=== PATIENT | female | born 1960 | race Caucasian/White ===

== ENCOUNTER 2016-10-23 15:27 | Inpatient (IN) | payer MEDICAID ==
[~2016-10-23] VITALS: Ht 162.6 cm; Wt 83.0 kg
[~2016-10-23 15:27] MED LIST: CHOL20009 PO; CITA10TA70 PO; FOLI1TAB6 PO; FURO40TA PO; LACT10SO PO; METH-562 PO; METO10TA3 PO; NOR10T PO; OMEP20CA5 OR; ONDA4TAB8 PO; RIFA550T PO; SPIR25TA89 PO; THIA100T43 PO; TRAZ50TA2 PO
[2016-10-23 20:52] LABS: Basophils # (auto) 0 uL; Basophils % (auto) 0.2 % (0.0-2.0); Eosinophils # (auto) 0.1 uL; Eosinophils % (auto) 1.8 % (0.0-7.0); Hematocrit 39.3 % (36.0-46.0); Hemoglobin 12.8 g/dL (12.2-16.2); Lymphocytes # (auto) 1.2 uL; Lymphocytes % (auto) 38.9 % (10.0-50.0); Mean Corpuscular Hemoglobin 32.3 pg (28.0-32.0); Mean Corpuscular Hgb Conc. 32.6 g/dL (32.0-36.0); Mean Corpuscular Volume 99.1 fL (80.0-100.0); Mean Platelet Volume 8.9 fL (7.4-10.4); Monocytes # (auto) 0.4 uL; Neutrophils # (auto) 1.4 uL; Neutrophils % (auto) 47.1 % (37.0-80.0); Platelet Count (auto) 66 10^3/uL (140-450)
[2016-10-23] MEDS ORDERED: ONDANSETRON HCL 4 MG/2 ML VIAL IV ONE (21:15)
[2016-10-23] MEDS ORDERED: HYDROmorphone HCL 2 MG/ML VL IV ONE (21:15)
[2016-10-23 21:26] LABS: Albumin 3.2 g/dL (3.4-5.0); BUN/Creatinine Ratio 15.6; Bilirubin, Total 1.2 mg/dL (0.2-1.0); Calcium 8.7 mg/dL (8.5-10.1); Potassium 3.6 mmol/L (3.5-5.1); Total Protein 6.1 g/dL (6.4-8.2)
[2016-10-23 21:27] LABS: Urine Color Yellow (Yellow); Urine Glucose Normal (Normal)
[2016-10-23 21:28] LABS: Urine Bilirubin Negative (Negative); Urine Blood Negative /uL (Negative); Urine Ketone Negative (Negative); Urine Nitrite Negative (Negative); Urine RBC 1 /hpf (0 - 4); Urine Squamous Epithelial Cell FEW /hpf (<5); Urine Urobilinogen >12 mg/dL (Negative); Urine pH 6.5 (5.0-8.0)
[2016-10-23] MEDS ORDERED: LACTULOSE 20Gm/30ML SOLN PO ONE (23:00)
[2016-10-24] VITALS (8 sets, daily range): BP systolic 112–130; BP diastolic 56–65
[2016-10-24] MEDS ORDERED: DEXTROSE (50%) 50ML SYRG IV PRN (00:45)
[2016-10-24] MEDS ORDERED: ACETAMINOPHEN 325 MG TAB PO PRN (00:45)
[2016-10-24] MEDS ORDERED: traZODone HCL 50 MG TAB PO ONE (00:45)
[2016-10-24] MEDS: HYDROcodone-ACET 5/325MG TAB PO PRN (02:32)
[2016-10-24] MEDS ORDERED: CHOL100079 OR (03:01)
[2016-10-24] MEDS ORDERED: RIFA550T PO (03:01)
[2016-10-24] MEDS ORDERED: OXYC-589 PO (03:01)
[2016-10-24] MEDS ORDERED: TRAZ100T2 PO (03:01)
[2016-10-24] MEDS ORDERED: VENL100T PO (03:01)
[2016-10-24] MEDS ORDERED: LAMO100T44 PO (03:01)
[2016-10-24] MEDS ORDERED: TOPI100T68 PO (03:01)
[2016-10-24] MEDS ORDERED: OXY5T GT (03:01)
[2016-10-24] MEDS ORDERED: DOCU1CAP24 PO (03:01)
[2016-10-24] MEDS ORDERED: ZINC50TA4 PO (03:01)
[2016-10-24] MEDS: LACTULOSE 20Gm/30ML SOLN PO SCH ×3 (05:22→22:14)
[2016-10-24] MEDS: InsuLIN REG 1unit/0.01ml Soln (100units/ml) SC SCH ×2 (05:32→12:00)
[2016-10-24] MEDS: ACCU-CHEK COMFORT CURVE STRIP VI SCH ×2 (05:32→12:24)
[2016-10-24] MEDS ORDERED: INFLUENZA QUAD 2016-2017 0.5 ML SYRG IM ONE (06:00)
[2016-10-24] MEDS: CITALOPRAM HYDROBR 20 MG TAB PO SCH (10:00)
[2016-10-24] MEDS ORDERED: ENOXAPARIN SOD 30 MG/0.3 ML SYRINGE SC SCH (10:00)
[2016-10-24] MEDS: SPIRONOLACTONE 25 MG TAB PO SCH (10:21)
[2016-10-24] MEDS: FUROSEMIDE 40 MG TAB PO SCH (10:22)
[2016-10-24] MEDS: FOLIC ACID 1 MG TAB PO SCH (10:22)
[2016-10-24] MEDS: FAMOTIDINE 20 MG TAB PO SCH ×2 (10:23→22:14)
[2016-10-24] MEDS: RIFAXIMIN 550 MG TAB PO SCH ×2 (10:23→22:14)
[2016-10-24] MEDS: THIAMINE HCL 100 MG TAB PO SCH (10:23)
[2016-10-24] MEDS: ENOXAPARIN SOD 40 MG/0.4 ML SYRINGE SC SCH (10:24)
[2016-10-24] MEDS: OXYCODONE W/ ACETAMINOPHEN 5/325MG TABLET PO PRN ×2 (16:03→22:15)
[2016-10-24] MEDS: traZODone HCL 50 MG TAB PO SCH (22:14)
[2016-10-25 05:23] VITALS: BP 123/68
[2016-10-25] MEDS: LACTULOSE 20Gm/30ML SOLN PO SCH ×3 (05:57→21:15)
[2016-10-25] MEDS: OXYCODONE W/ ACETAMINOPHEN 5/325MG TABLET PO PRN ×3 (06:00→18:28)
[2016-10-25 07:17] LABS: Basophils # (auto) 0 uL; Basophils % (auto) 0.5 % (0.0-2.0); DEFINITIVE VIEW TRANSMISSION; Eosinophils # (auto) 0 uL; Eosinophils % (auto) 2.3 % (0.0-7.0); Hematocrit 41.6 % (36.0-46.0); Hemoglobin 14.3 g/dL (12.2-16.2); Lymphocytes # (auto) 0.5 uL; Lymphocytes % (auto) 24.7 % (10.0-50.0); Mean Corpuscular Hgb Conc. 34.4 g/dL (32.0-36.0); Mean Corpuscular Volume 95.9 fL (80.0-100.0); Monocytes # (auto) 0.3 uL; Neutrophils # (auto) 1.1 uL; Neutrophils % (auto) 57.5 % (37.0-80.0); Platelet Count (auto) 49 10^3/uL (140-450); Red Cell Distribution Width 13.7 % (11.6-16.0)
[2016-10-25 07:21] LABS: Albumin 3.2 g/dL (3.4-5.0); BUN/Creatinine Ratio 13.1; Magnesium 1.9 mg/dL (1.6-2.6); Potassium 3.1 mmol/L (3.5-5.1)
[2016-10-25 07:24] LABS: Bilirubin, Total 1.8 mg/dL (0.2-1.0); Total Protein 6.3 g/dL (6.4-8.2)
[2016-10-25 07:25] LABS: White Blood Cell 1.9 10^3/uL (4.4-10.8)
[2016-10-25 08:43] VITALS: BP 111/71
[2016-10-25] MEDS: ONDANSETRON HCL 4 MG/2 ML VIAL IV PRN ×3 (09:04→18:32)
[2016-10-25] MEDS: HYDROcodone-ACET 5/325MG TAB PO PRN (09:05)
[2016-10-25] MEDS ORDERED: MAGNESIUM OXIDE 400 MG TAB PO ONE (09:15)
[2016-10-25] MEDS ORDERED: POTASSIUM CHL 20 Meq TABLET PO ONE (09:15)
[2016-10-25] MEDS: CITALOPRAM HYDROBR 20 MG TAB PO SCH (09:23)
[2016-10-25] MEDS: FUROSEMIDE 40 MG TAB PO SCH (09:24)
[2016-10-25] MEDS: SPIRONOLACTONE 25 MG TAB PO SCH (09:24)
[2016-10-25] MEDS: FOLIC ACID 1 MG TAB PO SCH (09:25)
[2016-10-25] MEDS: THIAMINE HCL 100 MG TAB PO SCH (09:25)
[2016-10-25] MEDS: FAMOTIDINE 20 MG TAB PO SCH ×2 (09:25→21:16)
[2016-10-25] MEDS: ENOXAPARIN SOD 40 MG/0.4 ML SYRINGE SC SCH (09:25)
[2016-10-25] MEDS: RIFAXIMIN 550 MG TAB PO SCH ×2 (10:24→21:27)
[2016-10-25 11:51] LABS: Basophils # (auto) 0 uL; Basophils % (auto) 0.3 % (0.0-2.0); DEFINITIVE VIEW TRANSMISSION; Eosinophils # (auto) 0 uL; Eosinophils % (auto) 1.2 % (0.0-7.0); Hematocrit 43.3 % (36.0-46.0); Hemoglobin 14.4 g/dL (12.2-16.2); Lymphocytes # (auto) 0.7 uL; Lymphocytes % (auto) 26.9 % (10.0-50.0); Mean Corpuscular Hemoglobin 32.2 pg (28.0-32.0); Mean Corpuscular Hgb Conc. 33.1 g/dL (32.0-36.0); Mean Corpuscular Volume 97.2 fL (80.0-100.0); Mean Platelet Volume 8.6 fL (7.4-10.4); Monocytes # (auto) 0.4 uL; Monocytes % (auto) 13.9 % (0.0-12.0); Neutrophils # (auto) 1.5 uL; Neutrophils % (auto) 57.7 % (37.0-80.0); Platelet Count (auto) 62 10^3/uL (140-450); Red Cell Distribution Width 13.7 % (11.6-16.0); White Blood Cell 2.6 10^3/uL (4.4-10.8)
[2016-10-25 13:19] VITALS: BP 99/46
[2016-10-25 16:25] VITALS: BP 104/49
[2016-10-25 20:00] VITALS: BP 104/49
[2016-10-25] MEDS: traZODone HCL 50 MG TAB PO SCH (21:27)
[2016-10-25 21:30] VITALS: BP 101/62
[2016-10-26 05:00] VITALS: BP 125/74
[2016-10-26] MEDS: LACTULOSE 20Gm/30ML SOLN PO SCH ×2 (05:16→14:00)
[2016-10-26 07:47] LABS: Basophils # (auto) 0 uL; Basophils % (auto) 0.4 % (0.0-2.0); Eosinophils # (auto) 0.1 uL; Eosinophils % (auto) 3.2 % (0.0-7.0); Hematocrit 45.7 % (36.0-46.0); Hemoglobin 14.9 g/dL (12.2-16.2); Lymphocytes # (auto) 1.1 uL; Mean Corpuscular Hemoglobin 31.8 pg (28.0-32.0); Mean Corpuscular Hgb Conc. 32.5 g/dL (32.0-36.0); Mean Corpuscular Volume 97.9 fL (80.0-100.0); Mean Platelet Volume 9.3 fL (7.4-10.4); Monocytes # (auto) 0.4 uL; Monocytes % (auto) 13.1 % (0.0-12.0); Neutrophils # (auto) 1.4 uL; Neutrophils % (auto) 46.3 % (37.0-80.0); Platelet Count (auto) 79 10^3/uL (140-450); Red Cell Distribution Width 13.6 % (11.6-16.0); White Blood Cell 3.1 10^3/uL (4.4-10.8)
[2016-10-26 08:00] VITALS: BP 130/69
[2016-10-26 08:51] VITALS: BP 130/69
[2016-10-26] MEDS ORDERED: POTASSIUM CHL 20 Meq TABLET PO ONE (09:15)
[2016-10-26] MEDS: ENOXAPARIN SOD 40 MG/0.4 ML SYRINGE SC SCH (09:56)
[2016-10-26] MEDS: ONDANSETRON HCL 4 MG/2 ML VIAL IV PRN ×2 (09:56→13:43)
[2016-10-26] MEDS: OXYCODONE W/ ACETAMINOPHEN 5/325MG TABLET PO PRN ×2 (09:57→13:42)
[2016-10-26] MEDS: SPIRONOLACTONE 25 MG TAB PO SCH (09:57)
[2016-10-26] MEDS: FOLIC ACID 1 MG TAB PO SCH (09:58)
[2016-10-26] MEDS: THIAMINE HCL 100 MG TAB PO SCH (09:58)
[2016-10-26] MEDS: FAMOTIDINE 20 MG TAB PO SCH (09:58)
[2016-10-26] MEDS: CITALOPRAM HYDROBR 20 MG TAB PO SCH (09:58)
[2016-10-26] MEDS: FUROSEMIDE 40 MG TAB PO SCH (09:59)
[2016-10-26 13:07] VITALS: BP 107/75
[2016-10-26] MEDS: RIFAXIMIN 550 MG TAB PO SCH (13:42)
[2016-10-26 13:50] VITALS: BP 130/69
== END 2016-10-26 14:45 | disposition home or self-care (01) ==
LOC: ER 15:30 → OVERFLOW 15:31 → EAST 10-24 01:35
PROVIDERS: ADMIT Nurse Practitioner; ATTEND Internal Medicine
DX: K74.60 Unspecified cirrhosis of liver (principal); D69.59 Other secondary thrombocytopenia; K76.6 Portal hypertension; K72.90 Hepatic failure, unspecified without coma; E44.1 Mild protein-calorie malnutrition; J44.9 Chronic obstructive pulmonary disease, unspecified; B19.20 Unspecified viral hepatitis C without hepatic coma; K29.50 Unspecified chronic gastritis without bleeding; D72.819 Decreased white blood cell count, unspecified; E11.9 Type 2 diabetes mellitus without complications; E87.6 Hypokalemia; K21.9 Gastro-esophageal reflux disease without esophagitis; F32.9 Major depressive disorder, single episode, unspecified; M19.90 Unspecified osteoarthritis, unspecified site; G89.29 Other chronic pain; F41.9 Anxiety disorder, unspecified; Z88.6 Allergy status to analgesic agent; Z88.5 Allergy status to narcotic agent; Z88.8 Allergy status to other drugs, medicaments and biological substances; Z82.49 Family history of ischemic heart disease and other diseases of the circulatory system; Z83.3 Family history of diabetes mellitus; Z80.9 Family history of malignant neoplasm, unspecified; Z91.09 Other allergy status, other than to drugs and biological substances; Z68.31 Body mass index [BMI] 31.0-31.9, adult; Z90.49 Acquired absence of other specified parts of digestive tract; Z82.61 Family history of arthritis
CPT/HCPCS: 36415; 74176; 80053; 81001; 82140; 82962; 83735; 84132; 85025; 93970; 96374; 96375; 97001; J2405

== ENCOUNTER 2016-12-31 15:27 | Emergency (ER) | payer MEDICAID ==
[~2016-12-31] VITALS: Ht 162.6 cm; Wt 78.0 kg
[~2016-12-31 15:27] MED LIST changes: +CHOL100079 OR; -CHOL20009 PO; -CITA10TA70 PO; +DOCU1CAP24 PO; -FOLI1TAB6 PO; -FURO40TA PO; +LAMO100T44 PO; -METH-562 PO; -NOR10T PO; -OMEP20CA5 OR; +OXY5T GT; +OXYC-589 PO; -THIA100T43 PO; +TOPI100T68 PO; +TRAZ100T2 PO; -TRAZ50TA2 PO; +VENL100T PO; +ZINC50TA4 PO
[2016-12-31 16:43] LABS: Albumin 3.3 g/dL (3.4-5.0); Alkaline Phosphatase 104 U/L (45-117); Anion Gap 10 (5-15); Aspartate Aminotransferase 43 U/L (15-37); BUN/Creatinine Ratio 10.7; Bilirubin, Total 1.3 mg/dL (0.2-1.0); Blood Urea Nitrogen 8 mg/dL (7-18); Calcium 9.3 mg/dL (8.5-10.1); Carbon Dioxide 24 mmol/L (21-32); Chloride 109 mmol/L (98-107); GFR African American 104 mL/min; GFR Non-African American 86 mL/min; Glucose 96 mg/dL (74-106); Magnesium 2.2 mg/dL (1.6-2.6); Potassium 3.5 mmol/L (3.5-5.1); Sodium 143 mmol/L (136-145); Total Protein 6.7 g/dL (6.4-8.2)
[2016-12-31 18:40] LABS: Basophils # (auto) 0 uL; Basophils % (auto) 0.3 % (0.0-2.0); Eosinophils # (auto) 0.1 uL; Eosinophils % (auto) 3.7 % (0.0-7.0); Hematocrit 41.3 % (36.0-46.0); Hemoglobin 13.8 g/dL (12.2-16.2); Lymphocytes % (auto) 32.6 % (10.0-50.0); Mean Corpuscular Hemoglobin 32.8 pg (28.0-32.0); Mean Corpuscular Hgb Conc. 33.5 g/dL (32.0-36.0); Mean Corpuscular Volume 97.8 fL (80.0-100.0); Mean Platelet Volume 8.8 fL (7.4-10.4); Monocytes # (auto) 0.3 uL; Monocytes % (auto) 10.8 % (0.0-12.0); Neutrophils # (auto) 1.6 uL; Neutrophils % (auto) 52.6 % (37.0-80.0); Red Cell Distribution Width 14.1 % (11.6-16.0)
[2016-12-31 19:02] LABS: Platelet Count (auto) 66 10^3/uL (140-450)
[2016-12-31 20:13] VITALS: BP 132/56
== END 2016-12-31 21:06 | disposition left against medical advice (07) ==
LOC: ER 15:29
DX: R79.9 Abnormal finding of blood chemistry, unspecified (principal); Z53.21 Procedure and treatment not carried out due to patient leaving prior to being seen by health care provider
CPT/HCPCS: 36415; 80053; 82140; 83735; 84484; 85025; 93005

== ENCOUNTER 2017-01-01 17:24 | Emergency (ER) | payer MEDICAID ==
[~2017-01-01] VITALS: Ht 162.6 cm; Wt 78.9 kg
[2017-01-02 02:41] VITALS: BP 113/61
== END 2017-01-02 02:51 | disposition home or self-care (01) ==
LOC: ER 17:27
DX: J02.9 Acute pharyngitis, unspecified (principal); H92.03 Otalgia, bilateral; K52.9 Noninfective gastroenteritis and colitis, unspecified; J44.9 Chronic obstructive pulmonary disease, unspecified; M19.90 Unspecified osteoarthritis, unspecified site; E11.9 Type 2 diabetes mellitus without complications; K21.9 Gastro-esophageal reflux disease without esophagitis; Z90.49 Acquired absence of other specified parts of digestive tract; Z90.89 Acquired absence of other organs; Z88.6 Allergy status to analgesic agent; Z88.8 Allergy status to other drugs, medicaments and biological substances
CPT/HCPCS: 82140

== ENCOUNTER 2017-04-06 08:01 | Emergency (ER) | payer MEDICAID ==
[~2017-04-06] VITALS: Ht 162.6 cm; Wt 82.6 kg
[~2017-04-06 08:01] MED LIST changes: -LACT10SO PO; +LACT10SO3 PO
[2017-04-06 08:07] VITALS: BP 152/69
[2017-04-06] MEDS ORDERED: KETOROLAC TROMETH 60MG/2ML VIAL IM ONE (09:15)
== END 2017-04-06 09:26 | disposition home or self-care (01) ==
LOC: ER 08:02
DX: G43.909 Migraine, unspecified, not intractable, without status migrainosus (principal); J44.9 Chronic obstructive pulmonary disease, unspecified; M19.90 Unspecified osteoarthritis, unspecified site; E11.9 Type 2 diabetes mellitus without complications; K21.9 Gastro-esophageal reflux disease without esophagitis; Z90.49 Acquired absence of other specified parts of digestive tract
CPT/HCPCS: 70450; 96372; 99284; J1885

== ENCOUNTER 2017-04-12 19:47 | Observation (INO) | payer MEDICAID ==
[~2017-04-12] VITALS: Ht 162.6 cm; Wt 77.6 kg
[2017-04-12 20:59] LABS: Urine RBC None Seen /hpf (0 - 4)
[2017-04-12 21:04] LABS: Basophils # (auto) 0 uL; Basophils % (auto) 0.3 % (0.0-2.0); CONDITION Y; Eosinophils # (auto) 0.1 uL; Eosinophils % (auto) 2.3 % (0.0-7.0); Hematocrit 38.5 % (36.0-46.0); Hemoglobin 13.2 g/dL (12.2-16.2); Lymphocytes # (auto) 0.8 uL; Lymphocytes % (auto) 18.9 % (10.0-50.0); Mean Corpuscular Hemoglobin 34.3 pg (28.0-32.0); Mean Corpuscular Hgb Conc. 34.3 g/dL (32.0-36.0); Monocytes # (auto) 0.5 uL; Monocytes % (auto) 11.1 % (0.0-12.0); Neutrophils # (auto) 2.8 uL; Neutrophils % (auto) 67.4 % (37.0-80.0); Platelet Count (auto) 93 10^3/uL (140-450); Red Cell Distribution Width 15.2 % (11.6-16.0); White Blood Cell 4.1 10^3/uL (4.4-10.8)
[2017-04-12 21:08] LABS: Urine Bilirubin Negative (Negative); Urine Blood Negative /uL (Negative); Urine Color Yellow (Yellow); Urine Glucose TRACE mg/dL (Normal); Urine Ketone Negative (Negative); Urine Nitrite Negative (Negative); Urine Squamous Epithelial Cell FEW /hpf (<5)
[2017-04-12 21:25] LABS: Albumin 2.7 g/dL (3.4-5.0); Anion Gap 8 (5-15); Aspartate Aminotransferase 17 U/L (15-37); BUN/Creatinine Ratio 15.1; Blood Urea Nitrogen 11 mg/dL (7-18); Calcium 9.4 mg/dL (8.5-10.1); Carbon Dioxide 27 mmol/L (21-32); Chloride 109 mmol/L (98-107); GFR African American 106 mL/min; GFR Non-African American 88 mL/min; Glucose 74 mg/dL (74-106); Magnesium 1.6 mg/dL (1.6-2.6); Potassium 3.4 mmol/L (3.5-5.1); Sodium 144 mmol/L (136-145)
[2017-04-12 21:30] LABS: Alkaline Phosphatase 99 U/L (45-117); Bilirubin, Total 0.7 mg/dL (0.2-1.0); Total Protein 6.4 g/dL (6.4-8.2)
[2017-04-12 21:32] LABS: B-Type Natriuretic Peptide 56.04 pg/mL (0-100)
[2017-04-12 21:39] LABS: Temperature: 22.2 C (20.0-25.0)
[2017-04-13] MEDS ORDERED: NALBUPHINE HCL 10 MG/1ml INJECTION IV ONE (02:00)
[2017-04-13] MEDS ORDERED: ONDANSETRON HCL 4 MG/2 ML VIAL IV ONE (02:00)
[2017-04-13 02:57] LABS: INR 1.02 (0.9-1.15); Partial Thromboplastin Time 27.9 sec (22.64-33.71); Prothrombin Time 11.1 sec (9.37-12.3)
[2017-04-13 05:55] VITALS: BP 135/75
== END 2017-04-13 06:12 | disposition home or self-care (01) | DRG 54 ==
LOC: ER 19:56 → OVERFLOW 19:57 → ER 04-13 05:55
PROVIDERS: ADMIT Emergency Medicine; ATTEND Emergency Medicine
DX: G43.909 Migraine, unspecified, not intractable, without status migrainosus (principal); I50.9 Heart failure, unspecified; K74.60 Unspecified cirrhosis of liver; M79.605 Pain in left leg; R60.0 Localized edema; J44.9 Chronic obstructive pulmonary disease, unspecified; E11.9 Type 2 diabetes mellitus without complications; K21.9 Gastro-esophageal reflux disease without esophagitis; F41.9 Anxiety disorder, unspecified; Z82.49 Family history of ischemic heart disease and other diseases of the circulatory system; Z83.3 Family history of diabetes mellitus; Z80.9 Family history of malignant neoplasm, unspecified; Z90.49 Acquired absence of other specified parts of digestive tract
CPT/HCPCS: 36415; 80053; 81001; 83735; 83880; 84443; 84484; 85025; 85379; 85610; 85730; 93005; 96374; 96375; 99285; G0378; J2300; J2405

== ENCOUNTER 2017-05-21 17:58 | Emergency (ER) | payer MEDICAID ==
[~2017-05-21] VITALS: Ht 162.6 cm; Wt 81.2 kg
[2017-05-21 19:18] LABS: Basophils # (auto) 0 uL; Basophils % (auto) 0.2 % (0.0-2.0); CONDITION Y; Eosinophils # (auto) 0.1 uL; Eosinophils % (auto) 3.2 % (0.0-7.0); Hematocrit 36.6 % (36.0-46.0); Hemoglobin 12.5 g/dL (12.2-16.2); Lymphocytes # (auto) 0.9 uL; Lymphocytes % (auto) 36.5 % (10.0-50.0); Mean Corpuscular Hemoglobin 33.7 pg (28.0-32.0); Mean Corpuscular Hgb Conc. 34.1 g/dL (32.0-36.0); Mean Corpuscular Volume 98.8 fL (80.0-100.0); Mean Platelet Volume 9.3 fL (7.4-10.4); Monocytes # (auto) 0.3 uL; Monocytes % (auto) 11.9 % (0.0-12.0); Neutrophils # (auto) 1.2 uL; Neutrophils % (auto) 48.2 % (37.0-80.0); Red Cell Distribution Width 13.4 % (11.6-16.0); White Blood Cell 2.6 10^3/uL (4.4-10.8)
[2017-05-21 19:49] LABS: Platelet Count (auto) 71 10^3/uL (140-450)
[2017-05-21 19:50] LABS: Anisocytosis Slight; Ovalocytes FEW; Platelet Estimate Decreased
[2017-05-21 20:02] LABS: Albumin 2.7 g/dL (3.4-5.0); BUN/Creatinine Ratio 3.2; Calcium 8.7 mg/dL (8.5-10.1); Potassium 3.5 mmol/L (3.5-5.1); Total Protein 6.1 g/dL (6.4-8.2)
[2017-05-21 20:11] LABS: B-Type Natriuretic Peptide 68.88 pg/mL (0-100)
[2017-05-21 20:33] LABS: Temperature: 22.4 C (20.0-25.0)
[2017-05-22] MEDS ORDERED: HYDROcodone-ACET 5/325MG TAB PO ONE ×2 (01:15→02:00)
[2017-05-22] MEDS ORDERED: IOHEXOL 350 MG/ML 100ML IJ ONE (04:16)
[2017-05-22] MEDS ORDERED: SULFAMETHOX W/TRIMETH(800/160MG) DS TAB PO ONE (04:30)
[2017-05-22 05:00] VITALS: BP 107/56
== END 2017-05-22 05:51 | disposition home or self-care (01) ==
LOC: ER 18:02
DX: L03.116 Cellulitis of left lower limb (principal); L03.115 Cellulitis of right lower limb; R60.9 Edema, unspecified; I50.9 Heart failure, unspecified; E78.5 Hyperlipidemia, unspecified; Z90.49 Acquired absence of other specified parts of digestive tract; Z88.6 Allergy status to analgesic agent; Z88.8 Allergy status to other drugs, medicaments and biological substances; Z79.899 Other long term (current) drug therapy
CPT/HCPCS: 36415; 71275; 80053; 83605; 83880; 85025; 85379; 93005; 93970; 99285; Q9967

== ENCOUNTER 2017-11-07 13:38 | Emergency (ER) | payer MEDICAID ==
[~2017-11-07] VITALS: Ht 162.6 cm; Wt 72.6 kg
[~2017-11-07 13:38] MED LIST changes: +ONDA-101 PO; -ONDA4TAB8 PO
[2017-11-07 13:56] VITALS: BP 100/46
[2017-11-07] MEDS ORDERED: traMADol HCL 50 MG TAB PO ONE (14:45)
[2017-12-25] MEDS ORDERED: POTA10TA34 PO (01:37)
[2017-12-25] MEDS ORDERED: BUPR10DI3 TOP (01:39)
[2017-12-25] MEDS ORDERED: ASP81EC PO (01:39)
[2017-12-25] MEDS ORDERED: FURO40TA PO (01:39)
== END 2017-11-07 15:02 | disposition home or self-care (01) ==
LOC: ER 13:38
DX: M79.631 Pain in right forearm (principal); M19.90 Unspecified osteoarthritis, unspecified site; J44.9 Chronic obstructive pulmonary disease, unspecified; E11.9 Type 2 diabetes mellitus without complications; K21.9 Gastro-esophageal reflux disease without esophagitis; Z90.49 Acquired absence of other specified parts of digestive tract; Z88.6 Allergy status to analgesic agent; Z88.8 Allergy status to other drugs, medicaments and biological substances; Z79.899 Other long term (current) drug therapy

== ENCOUNTER 2018-01-18 09:23 | Emergency (ER) | payer MEDICAID ==
[~2018-01-18] VITALS: Ht 157.5 cm; Wt 68.0 kg
[~2018-01-18 09:23] MED LIST changes: +BUPR10DI3 TOP; -OXY5T GT; -OXYC-589 PO; +PANT40T PO; -SPIR25TA89 PO
[2018-01-18] MEDS ORDERED: SODIUM CHLORIDE 0.9% 1,000 ML IV ONE (10:00)
[2018-01-18] MEDS ORDERED: PROMETHAZINE HCL 25 MG/ML 1ML IV PRN (10:00)
[2018-01-18 10:09] LABS: Basophils # (auto) 0 uL; Basophils % (auto) 0.3 % (0.0-2.0); Eosinophils # (auto) 0.1 uL; Eosinophils % (auto) 2.4 % (0.0-7.0); Hematocrit 40.1 % (36.0-46.0); Hemoglobin 13.5 g/dL (12.2-16.2); Lymphocytes # (auto) 0.9 uL; Mean Corpuscular Hemoglobin 33.5 pg (28.0-32.0); Mean Corpuscular Hgb Conc. 33.6 g/dL (32.0-36.0); Mean Corpuscular Volume 99.7 fL (80.0-100.0); Monocytes # (auto) 0.1 uL; Monocytes % (auto) 3.8 % (0.0-12.0); Neutrophils # (auto) 2.6 uL; Neutrophils % (auto) 69.5 % (37.0-80.0); Nucleated Red Blood Cells % 0.1 %; Platelet Count (auto) 69 10^3/uL (140-450); Red Blood Cells 4.03 10^6/uL (4.0-5.20); Red Cell Distribution Width 14.4 % (11.8-14.3); White Blood Cell 3.8 10^3/uL (4.4-10.8)
[2018-01-18 10:24] LABS: Urine Bacteria NONE SEEN /hpf (None Seen); Urine Blood Negative /uL (Negative); Urine Hyaline Cast FEW /lpf (0 - 2); Urine Mucus FEW (None Seen); Urine Specific Gravity 1.013 (1.001-1.035); Urine WBC 4 /hpf (0 - 5)
[2018-01-18 10:24] LABS: Alanine Aminotransferase 40 U/L (13-56); Albumin 3.4 g/dL (3.4-5.0); Alkaline Phosphatase 96 U/L (45-117); Anion Gap 10 (5-15); Aspartate Aminotransferase 31 U/L (15-37); BUN/Creatinine Ratio 7.4; Bilirubin, Total 1.3 mg/dL (0.2-1.0); Blood Urea Nitrogen 7 mg/dL (7-18); Calcium 9.2 mg/dL (8.5-10.1); Carbon Dioxide 25 mmol/L (21-32); Chloride 105 mmol/L (98-107); GFR African American 80 mL/min; GFR Non-African American 66 mL/min; Glucose 138 mg/dL (74-106); Potassium 3.3 mmol/L (3.5-5.1); Sodium 140 mmol/L (136-145); Total Protein 6.8 g/dL (6.4-8.2)
[2018-01-18] MEDS ORDERED: POTASSIUM CHL 10% (20 MEQ/15ML) 15ml ORAL SOLN PO ONE (11:30)
[2018-01-18 12:34] VITALS: BP 93/55
== END 2018-01-18 12:23 | disposition home or self-care (01) ==
LOC: ER 09:23
DX: K74.60 Unspecified cirrhosis of liver (principal); K59.8 Other specified functional intestinal disorders; M19.90 Unspecified osteoarthritis, unspecified site; J44.9 Chronic obstructive pulmonary disease, unspecified; E11.9 Type 2 diabetes mellitus without complications; K21.9 Gastro-esophageal reflux disease without esophagitis; Z90.49 Acquired absence of other specified parts of digestive tract; Z90.710 Acquired absence of both cervix and uterus
CPT/HCPCS: 36415; 80053; 81001; 82140; 83690; 83735; 84484; 85025; 93005; 96361; 96374; 99285; J2550

== ENCOUNTER 2018-03-06 18:56 | Emergency (ER) | payer MEDICAID ==
[~2018-03-06] VITALS: Ht 162.6 cm; Wt 69.4 kg
[2018-03-06 20:01] LABS: Basophils # (auto) 0 uL; Eosinophils # (auto) 0.1 uL; Mean Corpuscular Hemoglobin 33.5 pg (28.0-32.0); Monocytes # (auto) 0.3 uL; Neutrophils # (auto) 1.6 uL
[2018-03-06 20:02] LABS: Basophils % (auto) 0.2 % (0.0-2.0); Eosinophils % (auto) 2.2 % (0.0-7.0); Hematocrit 38.4 % (36.0-46.0); Hemoglobin 13.1 g/dL (12.2-16.2); Lymphocytes % (auto) 33.3 % (10.0-50.0); Mean Corpuscular Hgb Conc. 34.2 g/dL (32.0-36.0); Mean Corpuscular Volume 97.8 fL (80.0-100.0); Monocytes % (auto) 10.3 % (0.0-12.0); Nucleated Red Blood Cells % 0.4 %; Red Blood Cells 3.92 10^6/uL (4.0-5.20); Red Cell Distribution Width 13.3 % (11.8-14.3); White Blood Cell 2.9 10^3/uL (4.4-10.8)
[2018-03-06 20:03] LABS: Alanine Aminotransferase 28 U/L (13-56); Albumin 3.2 g/dL (3.4-5.0); Alkaline Phosphatase 103 U/L (45-117); Amylase 91 U/L (25-115); Anion Gap 7 (5-15); Aspartate Aminotransferase 28 U/L (15-37); BUN/Creatinine Ratio 2.8; Bilirubin, Total 0.9 mg/dL (0.2-1.0); Blood Urea Nitrogen 3 mg/dL (7-18); Calcium 8.8 mg/dL (8.5-10.1); Carbon Dioxide 27 mmol/L (21-32); Chloride 106 mmol/L (98-107); GFR African American 67 mL/min; GFR Non-African American 55 mL/min; Glucose 88 mg/dL (74-106); Lipase 180 U/L (73-393); Magnesium 2.1 mg/dL (1.6-2.6); Potassium 3.1 mmol/L (3.5-5.1); Sodium 140 mmol/L (136-145); Total Protein 6.4 g/dL (6.4-8.2)
[2018-03-06 20:06] LABS: Platelet Count (auto) 54 10^3/uL (140-450)
[2018-03-06 20:33] LABS: Urine Bacteria FEW /hpf (None Seen); Urine Blood Negative /uL (Negative); Urine Mucus FEW (None Seen); Urine Specific Gravity 1.011 (1.001-1.035); Urine WBC 3 /hpf (0 - 5)
[2018-03-07] MEDS ORDERED: NALBUPHINE HCL 10 MG/1ml INJECTION IV ONE (03:30)
[2018-03-07] MEDS ORDERED: LACTULOSE 20Gm/30ML SOLN PO ONE (03:30)
[2018-03-07] MEDS ORDERED: ONDANSETRON HCL 4 MG/2 ML VIAL IV ONE (03:30)
[2018-03-07] MEDS ORDERED: MEPERIDINE HCL (25 MG/ML) 1ML VIAL IV ONE (04:00)
[2018-03-07 04:03] VITALS: BP 105/69
== END 2018-03-07 03:58 | disposition home or self-care (01) ==
LOC: ER 18:56
DX: N20.0 Calculus of kidney (principal); K70.30 Alcoholic cirrhosis of liver without ascites; F12.10 Cannabis abuse, uncomplicated; E11.9 Type 2 diabetes mellitus without complications; K21.9 Gastro-esophageal reflux disease without esophagitis; M19.90 Unspecified osteoarthritis, unspecified site; J44.9 Chronic obstructive pulmonary disease, unspecified; Z90.49 Acquired absence of other specified parts of digestive tract; Z90.710 Acquired absence of both cervix and uterus; Z88.6 Allergy status to analgesic agent; Z87.891 Personal history of nicotine dependence; Z88.8 Allergy status to other drugs, medicaments and biological substances
CPT/HCPCS: 36415; 74176; 80053; 81001; 82140; 82150; 83690; 83735; 84484; 85025; 93005; 96374; 96375; 99285; J2175; J2405

== ENCOUNTER 2018-05-03 07:24 | Emergency (ER) | payer MEDICAID ==
[~2018-05-03] VITALS: Ht 162.6 cm; Wt 66.7 kg
[~2018-05-03 07:24] MED LIST changes: +DICL1GEL26 TOP; +FURO40TA4 PO; +POTA1TAB61 PO; +SPIR25TA89 PO
[2018-05-03 07:39] VITALS: BP 123/56
[2018-05-03] MEDS ORDERED: KETOROLAC TROMETH 60MG/2ML VIAL IM ONE (08:30)
[2018-05-03] MEDS ORDERED: ONDANSETRON ODT 4 MG TAB PO ONE (08:30)
== END 2018-05-03 09:09 | disposition home or self-care (01) ==
LOC: ER 07:24
DX: G43.909 Migraine, unspecified, not intractable, without status migrainosus (principal); J44.9 Chronic obstructive pulmonary disease, unspecified; E11.9 Type 2 diabetes mellitus without complications; F12.10 Cannabis abuse, uncomplicated; K21.9 Gastro-esophageal reflux disease without esophagitis; Z90.49 Acquired absence of other specified parts of digestive tract; Z90.89 Acquired absence of other organs; Z90.710 Acquired absence of both cervix and uterus
CPT/HCPCS: 96372; 99283; J1885; Q0162

== ENCOUNTER 2018-05-31 20:44 | Inpatient (IN) | payer MEDICAID ==
[~2018-05-31] VITALS: Ht 162.6 cm; Wt 74.2 kg
[~2018-05-31 20:44] MED LIST changes: +SPIR25TA8 PO; -SPIR25TA89 PO
[2018-05-31 22:13] LABS: Basophils # (auto) 0 uL; Basophils % (auto) 0.3 % (0.0-2.0); Hematocrit 38.7 % (36.0-46.0); Lymphocytes # (auto) 0.9 uL; Monocytes # (auto) 0.2 uL
[2018-05-31 22:15] LABS: Eosinophils # (auto) 0.1 uL; Eosinophils % (auto) 2.7 % (0.0-7.0); Hemoglobin 13.6 g/dL (12.2-16.2); Lymphocytes % (auto) 38.8 % (10.0-50.0); Mean Corpuscular Hemoglobin 34.2 pg (28.0-32.0); Mean Corpuscular Hgb Conc. 35.1 g/dL (32.0-36.0); Mean Corpuscular Volume 97.4 fL (80.0-100.0); Monocytes % (auto) 9.6 % (0.0-12.0); Neutrophils # (auto) 1.1 uL; Neutrophils % (auto) 48.6 % (37.0-80.0); Nucleated Red Blood Cells % 0.2 %; Red Blood Cells 3.97 10^6/uL (4.0-5.20); Red Cell Distribution Width 14.4 % (11.8-14.3); White Blood Cell 2.2 10^3/uL (4.4-10.8)
[2018-05-31 22:29] LABS: Albumin 3.5 g/dL (3.4-5.0); BUN/Creatinine Ratio 7.6; Bilirubin, Total 0.7 mg/dL (0.2-1.0); Calcium 9.1 mg/dL (8.5-10.1); Potassium 3.3 mmol/L (3.5-5.1)
[2018-05-31 22:42] LABS: Urine Bacteria NONE SEEN /hpf (None Seen); Urine Blood Negative /uL (Negative); Urine Hyaline Cast MOD /lpf (0 - 2); Urine Mucus FEW (None Seen); Urine WBC 3 /hpf (0 - 5)
[2018-05-31 23:02] LABS: Platelet Count (auto) 45 10^3/uL (140-450)
[2018-05-31] MEDS ORDERED: LACTULOSE 20Gm/30ML SOLN PO ONE (23:45)
[2018-05-31] MEDS ORDERED: POTASSIUM CHL 20 Meq TABLET PO ONE (23:45)
[2018-05-31] MEDS ORDERED: SODIUM CHLORIDE 0.9% 1,000 ML IV ONE (23:45)
[2018-06-01] MEDS ORDERED: ONDANSETRON HCL 4 MG/2 ML VIAL IV PRN (05:15)
[2018-06-01 06:10] VITALS: BP 112/69
[2018-06-01] MEDS ORDERED: ACETAMINOPHEN 500 MG TAB PO PRN (06:45)
[2018-06-01] MEDS: SPIRONOLACTONE 25 MG TAB PO SCH ×2 (07:07→18:05)
[2018-06-01] MEDS: LACTULOSE 20Gm/30ML SOLN PO SCH ×3 (07:07→21:25)
[2018-06-01 09:00] VITALS: BP 113/55
[2018-06-01] MEDS: lamoTRIgine 100 MG TAB PO SCH (10:25)
[2018-06-01] MEDS: FUROSEMIDE 40 MG TAB PO SCH (10:25)
[2018-06-01] MEDS: PANTOPRAZOLE 40 MG TAB PO SCH (10:25)
[2018-06-01] MEDS: POTASSIUM CHL 10 Meq TABLET PO SCH (10:25)
[2018-06-01 11:29] LABS: Basophils # (auto) 0 uL; Basophils % (auto) 0.2 % (0.0-2.0); Eosinophils # (auto) 0 uL; Lymphocytes # (auto) 0.5 uL; Monocytes # (auto) 0.1 uL; Platelet Count (auto) 41 10^3/uL (140-450)
[2018-06-01 11:32] LABS: Eosinophils % (auto) 1.9 % (0.0-7.0); Hematocrit 36.1 % (36.0-46.0); Hemoglobin 12.7 g/dL (12.2-16.2); Lymphocytes % (auto) 30.3 % (10.0-50.0); Mean Corpuscular Hgb Conc. 35.1 g/dL (32.0-36.0); Mean Corpuscular Volume 96.8 fL (80.0-100.0); Monocytes % (auto) 7.8 % (0.0-12.0); Neutrophils % (auto) 59.8 % (37.0-80.0); Nucleated Red Blood Cells % 0.2 %; Red Blood Cells 3.73 10^6/uL (4.0-5.20); Red Cell Distribution Width 14.1 % (11.8-14.3)
[2018-06-01 11:41] LABS: White Blood Cell 1.6 10^3/uL (4.4-10.8)
[2018-06-01 11:59] LABS: BUN/Creatinine Ratio 9.5; Calcium 9.1 mg/dL (8.5-10.1); Potassium 3.6 mmol/L (3.5-5.1)
[2018-06-01] MEDS: HYDROcodone-ACET 5/325MG TAB PO PRN ×2 (12:15→19:02)
[2018-06-01 13:00] VITALS: BP 104/60
[2018-06-01 14:45] LABS: INR 1.1 (0.9-1.15); Prothrombin Time 11.7 sec (9.27-12.13)
[2018-06-01 17:00] VITALS: BP 94/51
[2018-06-01 20:00] VITALS: BP 98/56
[2018-06-01] MEDS: traZODone HCL 50 MG TAB PO SCH (21:24)
[2018-06-01 21:28] VITALS: BP 98/56
[2018-06-02 05:21] VITALS: BP 102/61
[2018-06-02] MEDS: SPIRONOLACTONE 25 MG TAB PO SCH ×2 (06:11→17:32)
[2018-06-02] MEDS: LACTULOSE 20Gm/30ML SOLN PO SCH ×3 (06:11→21:57)
[2018-06-02 07:35] LABS: Basophils # (auto) 0 uL; Eosinophils # (auto) 0.1 uL; Lymphocytes # (auto) 0.7 uL; Monocytes # (auto) 0.2 uL; Platelet Count (auto) 44 10^3/uL (140-450); Red Blood Cells 3.92 10^6/uL (4.0-5.20)
[2018-06-02 07:38] LABS: Basophils % (auto) 0.4 % (0.0-2.0); Eosinophils % (auto) 3.2 % (0.0-7.0); Hematocrit 37.8 % (36.0-46.0); Hemoglobin 13.1 g/dL (12.2-16.2); Lymphocytes % (auto) 37.1 % (10.0-50.0); Mean Corpuscular Hemoglobin 33.3 pg (28.0-32.0); Mean Corpuscular Hgb Conc. 34.6 g/dL (32.0-36.0); Mean Corpuscular Volume 96.3 fL (80.0-100.0); Monocytes % (auto) 9.8 % (0.0-12.0); Neutrophils % (auto) 49.5 % (37.0-80.0); Nucleated Red Blood Cells % 0.4 %; Red Cell Distribution Width 13.9 % (11.8-14.3)
[2018-06-02 07:51] LABS: BUN/Creatinine Ratio 6.9; Potassium 3.5 mmol/L (3.5-5.1)
[2018-06-02 07:52] LABS: White Blood Cell 1.9 10^3/uL (4.4-10.8)
[2018-06-02 08:38] VITALS: BP 125/56
[2018-06-02] MEDS: PANTOPRAZOLE 40 MG TAB PO SCH (09:43)
[2018-06-02] MEDS: FUROSEMIDE 40 MG TAB PO SCH (09:43)
[2018-06-02] MEDS: lamoTRIgine 100 MG TAB PO SCH (09:43)
[2018-06-02] MEDS: POTASSIUM CHL 10 Meq TABLET PO SCH (09:43)
[2018-06-02] MEDS: HYDROcodone-ACET 5/325MG TAB PO PRN (11:31)
[2018-06-02 13:00] VITALS: BP 112/62
[2018-06-02] MEDS ORDERED: MORPHINE SULF INJ 2 MG/ML SYRINGE 1ML IV PRN (14:15)
[2018-06-02 17:00] VITALS: BP 111/48
[2018-06-02] MEDS: HYDROmorphone HCL 2 MG/ML VL IV PRN (17:32)
[2018-06-02 20:00] VITALS: BP 98/63
[2018-06-02] MEDS: traZODone HCL 50 MG TAB PO SCH (21:56)
[2018-06-02] MEDS: RIFAXIMIN 550 MG TAB PO SCH (21:56)
[2018-06-02 22:00] VITALS: BP 98/63
[2018-06-03] MEDS: HYDROmorphone HCL 2 MG/ML VL IV PRN ×5 (01:27→21:41)
[2018-06-03 05:39] VITALS: BP 96/56
[2018-06-03] MEDS: SPIRONOLACTONE 25 MG TAB PO SCH ×2 (05:50→16:51)
[2018-06-03] MEDS: LACTULOSE 20Gm/30ML SOLN PO SCH ×3 (05:50→21:39)
[2018-06-03] MEDS: PANTOPRAZOLE 40 MG TAB PO SCH (07:30)
[2018-06-03 09:00] VITALS: BP 110/67
[2018-06-03] MEDS: VENLAFAXINE HCL 37.5mg XR cap PO SCH (09:37)
[2018-06-03] MEDS: POTASSIUM CHL 10 Meq TABLET PO SCH (09:37)
[2018-06-03] MEDS: lamoTRIgine 100 MG TAB PO SCH (09:37)
[2018-06-03] MEDS: TOPIRAMATE 100 MG TAB PO SCH (09:38)
[2018-06-03] MEDS: FUROSEMIDE 40 MG TAB PO SCH (09:38)
[2018-06-03] MEDS: RIFAXIMIN 550 MG TAB PO SCH ×2 (10:41→22:24)
[2018-06-03 13:00] VITALS: BP 96/62
[2018-06-03 16:59] VITALS: BP 101/56
[2018-06-03 20:05] VITALS: BP 114/63
[2018-06-03 21:39] VITALS: BP 114/63
[2018-06-03] MEDS: traZODone HCL 50 MG TAB PO SCH (21:39)
[2018-06-03] MEDS: PANTOPRAZOLE 40 MG/10 ML VIAL IV SCH (21:39)
[2018-06-04 04:57] VITALS: BP 105/57
[2018-06-04] MEDS: SPIRONOLACTONE 25 MG TAB PO SCH ×2 (05:30→18:00)
[2018-06-04 06:10] LABS: Basophils # (auto) 0 uL; Basophils % (auto) 0.3 % (0.0-2.0); Eosinophils # (auto) 0.1 uL; Lymphocytes # (auto) 0.8 uL; Monocytes # (auto) 0.2 uL; Neutrophils # (auto) 1.1 uL; Red Cell Distribution Width 13.4 % (11.8-14.3); White Blood Cell 2.2 10^3/uL (4.4-10.8)
[2018-06-04 06:13] LABS: Eosinophils % (auto) 3.6 % (0.0-7.0); Hematocrit 36.3 % (36.0-46.0); Hemoglobin 12.9 g/dL (12.2-16.2); Lymphocytes % (auto) 37.3 % (10.0-50.0); Mean Corpuscular Hemoglobin 33.9 pg (28.0-32.0); Mean Corpuscular Hgb Conc. 35.4 g/dL (32.0-36.0); Mean Corpuscular Volume 95.9 fL (80.0-100.0); Monocytes % (auto) 9.7 % (0.0-12.0); Neutrophils % (auto) 49.1 % (37.0-80.0); Nucleated Red Blood Cells % 0.2 %; Red Blood Cells 3.79 10^6/uL (4.0-5.20)
[2018-06-04 06:15] LABS: Platelet Count (auto) 41 10^3/uL (140-450)
[2018-06-04] MEDS: LACTULOSE 20Gm/30ML SOLN PO SCH ×2 (06:16→22:44)
[2018-06-04 06:35] LABS: BUN/Creatinine Ratio 4.8; Calcium 8.8 mg/dL (8.5-10.1)
[2018-06-04 06:37] LABS: Bilirubin, Total 1.1 mg/dL (0.2-1.0); Total Protein 5.9 g/dL (6.4-8.2)
[2018-06-04] MEDS: HYDROmorphone HCL 2 MG/ML VL IV PRN ×3 (06:37→21:20)
[2018-06-04 08:30] VITALS: BP 101/58
[2018-06-04] MEDS ORDERED: LIDOCAINE VISCOUS 2% 15ML UD ONE (08:53)
[2018-06-04] MEDS ORDERED: SODIUM CHLORIDE LOCK 10 ML ONE (08:53)
[2018-06-04] MEDS ORDERED: diphenhdrAMINE HCL 50 MG/1 ML VL ONE (08:54)
[2018-06-04] MEDS ORDERED: FLUMAZENIL 0.1 MG/ML INJ 10ML MDV IV ONE (08:55)
[2018-06-04] MEDS ORDERED: NALOXONE HCL 0.4 MG/ML VIAL ONE (08:55)
[2018-06-04] MEDS ORDERED: POTASSIUM CHL 20MEQ/100ML 100 ML IV ONE (09:00)
[2018-06-04] MEDS: FUROSEMIDE 40 MG TAB PO SCH (10:00)
[2018-06-04] MEDS: POTASSIUM CHL 10 Meq TABLET PO SCH (10:00)
[2018-06-04] MEDS ORDERED: HYDROcodone-ACET 5/325MG TAB PO PRN (10:30)
[2018-06-04] MEDS: PANTOPRAZOLE 40 MG/10 ML VIAL IV SCH (11:02)
[2018-06-04] MEDS ORDERED: LACTULOSE 20Gm/30ML SOLN PO SCH (12:00)
[2018-06-04] MEDS: MIDAZOLAM HCL 5 MG/ML-1ML VIAL ONE ×2 (12:52→12:55)
[2018-06-04] MEDS: fentaNYL CITRATE 100 MCG/2 ML VL ONE ×2 (12:52→12:55)
[2018-06-04 14:00] VITALS: BP 92/69
[2018-06-04] MEDS ORDERED: LACTULOSE 20Gm/30ML SOLN PO ONE (16:15)
[2018-06-04] MEDS ORDERED: RIFAXIMIN 550 MG TAB PO ONE (16:30)
[2018-06-04 16:36] VITALS: BP 104/56
[2018-06-04] MEDS: VENLAFAXINE HCL 37.5mg XR cap PO SCH (16:58)
[2018-06-04] MEDS: TOPIRAMATE 100 MG TAB PO SCH (17:00)
[2018-06-04] MEDS: lamoTRIgine 100 MG TAB PO SCH (17:00)
[2018-06-04 20:00] VITALS: BP 120/64
[2018-06-04] MEDS: PANTOPRAZOLE 40 MG TAB PO SCH (21:31)
[2018-06-04] MEDS: traZODone HCL 50 MG TAB PO SCH (21:31)
[2018-06-04 22:12] VITALS: BP 120/64
[2018-06-05] MEDS: HYDROmorphone HCL 2 MG/ML VL IV PRN ×2 (03:53→08:23)
[2018-06-05 04:58] VITALS: BP 105/54
[2018-06-05] MEDS: LACTULOSE 20Gm/30ML SOLN PO SCH (05:46)
[2018-06-05] MEDS: SPIRONOLACTONE 25 MG TAB PO SCH (05:47)
[2018-06-05] MEDS ORDERED: RIFAXIMIN 550 MG TAB PO SCH (06:00)
[2018-06-05 09:00] VITALS: BP 101/53
[2018-06-05] MEDS: FUROSEMIDE 40 MG TAB PO SCH (10:00)
[2018-06-05 10:03] LABS: Basophils # (auto) 0 uL; Basophils % (auto) 0.5 % (0.0-2.0); Eosinophils # (auto) 0.1 uL; Eosinophils % (auto) 3.1 % (0.0-7.0); Hematocrit 37.8 % (36.0-46.0); Hemoglobin 12.4 g/dL (12.2-16.2); Lymphocytes # (auto) 0.5 uL; Lymphocytes % (auto) 29.9 % (10.0-50.0); Mean Corpuscular Hemoglobin 33.6 pg (28.0-32.0); Mean Corpuscular Hgb Conc. 32.8 g/dL (32.0-36.0); Mean Corpuscular Volume 102.6 fL (80.0-100.0); Monocytes # (auto) 0.2 uL; Monocytes % (auto) 10.2 % (0.0-12.0); Neutrophils # (auto) 0.9 uL; Neutrophils % (auto) 56.3 % (37.0-80.0); Nucleated Red Blood Cells % 0.5 %; Platelet Count (auto) 39 10^3/uL (140-450); Red Blood Cells 3.68 10^6/uL (4.0-5.20); Red Cell Distribution Width 14.1 % (11.8-14.3)
[2018-06-05 10:07] LABS: White Blood Cell 1.7 10^3/uL (4.4-10.8)
[2018-06-05] MEDS: VENLAFAXINE HCL 37.5mg XR cap PO SCH (10:16)
[2018-06-05] MEDS: lamoTRIgine 100 MG TAB PO SCH (10:17)
[2018-06-05] MEDS: POTASSIUM CHL 10 Meq TABLET PO SCH (10:17)
[2018-06-05] MEDS: PANTOPRAZOLE 40 MG TAB PO SCH (10:18)
[2018-06-05] MEDS: TOPIRAMATE 100 MG TAB PO SCH (10:18)
[2018-06-05 10:23] LABS: BUN/Creatinine Ratio 5.2; Calcium 8.8 mg/dL (8.5-10.1); Potassium 3.1 mmol/L (3.5-5.1)
[2018-06-05] MEDS ORDERED: LACT10SO3 PO (10:43)
[2018-06-05] MEDS ORDERED: PANT40T PO (10:43)
[2018-06-05] MEDS ORDERED: POTA-167 PO (10:43)
[2018-06-05] MEDS ORDERED: POTASSIUM CHL 20 Meq TABLET PO ONE (10:45)
[2018-06-05 11:21] VITALS: BP 101/53
== END 2018-06-05 12:20 | disposition home or self-care (01) | DRG 241 ==
LOC: ER 20:44 → CENTRAL 20:45
PROVIDERS: ADMIT Nurse Practitioner Family; ATTEND Internal Medicine
PROC: 0DJ08ZZ Inspection of Upper Intestinal Tract, Via Natural or Artificial Opening Endoscopic (ICD-10-PCS; principal; 2018-06-04 12:46)
DX: K29.71 Gastritis, unspecified, with bleeding (principal); N17.0 Acute kidney failure with tubular necrosis; D69.59 Other secondary thrombocytopenia; Z76.82 Awaiting organ transplant status; D70.9 Neutropenia, unspecified; D69.6 Thrombocytopenia, unspecified; I50.9 Heart failure, unspecified; K76.6 Portal hypertension; K72.90 Hepatic failure, unspecified without coma; K70.30 Alcoholic cirrhosis of liver without ascites; E87.6 Hypokalemia; B19.20 Unspecified viral hepatitis C without hepatic coma; F32.9 Major depressive disorder, single episode, unspecified; K31.89 Other diseases of stomach and duodenum; F41.9 Anxiety disorder, unspecified; J44.9 Chronic obstructive pulmonary disease, unspecified; E11.9 Type 2 diabetes mellitus without complications; M19.90 Unspecified osteoarthritis, unspecified site; M54.9 Dorsalgia, unspecified; G89.29 Other chronic pain; K21.9 Gastro-esophageal reflux disease without esophagitis; Z82.49 Family history of ischemic heart disease and other diseases of the circulatory system; Z83.3 Family history of diabetes mellitus; Z90.710 Acquired absence of both cervix and uterus; Z88.8 Allergy status to other drugs, medicaments and biological substances; Z88.5 Allergy status to narcotic agent; Z90.49 Acquired absence of other specified parts of digestive tract
CPT/HCPCS: 36415; 43235; 71046; 80048; 80053; 81001; 82140; 83880; 84484; 85025; 85610; 85730; 87045; 87899; 93005; 96360; C9113; J2250; J2405; J3480

== ENCOUNTER 2018-06-21 09:15 | Emergency (ER) | payer MEDICAID ==
[~2018-06-21] VITALS: Ht 162.6 cm; Wt 66.7 kg
[~2018-06-21 09:15] MED LIST changes: -METO10TA3 PO; +POTA-167 PO
[2018-06-21] MEDS ORDERED: SODIUM CHLORIDE 0.9% 1,000 ML IV ONE (10:38)
[2018-06-21] MEDS ORDERED: FLEET MINERAL OIL ENEMA 133 ML PR ONE (10:45)
[2018-06-21] MEDS ORDERED: PROMETHAZINE HCL 25 MG/ML 1ML IV PRN (10:45)
[2018-06-21 12:24] LABS: Albumin 3.1 g/dL (3.4-5.0); BUN/Creatinine Ratio 6.8; Calcium 8.5 mg/dL (8.5-10.1); Potassium 3.6 mmol/L (3.5-5.1)
[2018-06-21 12:26] LABS: Bilirubin, Total 0.6 mg/dL (0.2-1.0); Total Protein 6.2 g/dL (6.4-8.2)
[2018-06-21 13:03] VITALS: BP 99/50
[2018-06-21 13:08] LABS: Basophils # (auto) 0 uL; Eosinophils # (auto) 0 uL; Hemoglobin 12.6 g/dL (12.2-16.2); Lymphocytes # (auto) 0.7 uL; Monocytes # (auto) 0.2 uL; Neutrophils # (auto) 0.9 uL; Nucleated Red Blood Cells % 0.2 %; Red Blood Cells 3.71 10^6/uL (4.0-5.20)
[2018-06-21 13:10] LABS: Basophils % (auto) 0.2 % (0.0-2.0); Hematocrit 35.4 % (36.0-46.0); Lymphocytes % (auto) 36.4 % (10.0-50.0); Mean Corpuscular Hgb Conc. 35.5 g/dL (32.0-36.0); Mean Corpuscular Volume 95.5 fL (80.0-100.0); Neutrophils % (auto) 50.4 % (37.0-80.0); Red Cell Distribution Width 14.1 % (11.8-14.3)
[2018-06-21 13:14] LABS: White Blood Cell 1.8 10^3/uL (4.4-10.8)
[2018-06-21 14:00] LABS: Platelet Count (auto) 44 10^3/uL (140-450)
== END 2018-06-21 13:35 | disposition home or self-care (01) ==
LOC: ER 09:15
DX: K74.60 Unspecified cirrhosis of liver (principal); E46 Unspecified protein-calorie malnutrition; K59.01 Slow transit constipation; K31.89 Other diseases of stomach and duodenum; D69.6 Thrombocytopenia, unspecified; D72.819 Decreased white blood cell count, unspecified; M19.90 Unspecified osteoarthritis, unspecified site; J44.9 Chronic obstructive pulmonary disease, unspecified; E11.9 Type 2 diabetes mellitus without complications; K21.9 Gastro-esophageal reflux disease without esophagitis; Z90.49 Acquired absence of other specified parts of digestive tract; Z90.710 Acquired absence of both cervix and uterus; Z87.891 Personal history of nicotine dependence; Z88.6 Allergy status to analgesic agent; Z88.5 Allergy status to narcotic agent; Z88.8 Allergy status to other drugs, medicaments and biological substances; Z79.899 Other long term (current) drug therapy; Z68.25 Body mass index [BMI] 25.0-25.9, adult
CPT/HCPCS: 36415; 74022; 80053; 83690; 83735; 85025; 99285; J7030

== ENCOUNTER 2018-07-10 15:35 | Inpatient (IN) | payer MEDICAID ==
[~2018-07-10] VITALS: Ht 162.6 cm; Wt 69.2 kg
[2018-07-10 16:38] LABS: Basophils # (auto) 0 uL; Eosinophils # (auto) 0 uL; Eosinophils % (auto) 1.5 % (0.0-7.0); Lymphocytes # (auto) 0.9 uL; Mean Corpuscular Volume 97.5 fL (80.0-100.0); Neutrophils # (auto) 1.7 uL; White Blood Cell 2.9 10^3/uL (4.4-10.8)
[2018-07-10 16:38] LABS: Urine Bacteria NONE SEEN /hpf (None Seen); Urine Blood 1+ /uL (Negative); Urine Mucus FEW (None Seen); Urine Specific Gravity 1.004 (1.001-1.035); Urine WBC 2 /hpf (0 - 5)
[2018-07-10 16:40] LABS: Basophils % (auto) 0.7 % (0.0-2.0); Hematocrit 37.7 % (36.0-46.0); Lymphocytes % (auto) 30.9 % (10.0-50.0); Mean Corpuscular Hemoglobin 33.8 pg (28.0-32.0); Mean Corpuscular Hgb Conc. 34.7 g/dL (32.0-36.0); Monocytes # (auto) 0.2 uL; Monocytes % (auto) 7.8 % (0.0-12.0); Neutrophils % (auto) 59.1 % (37.0-80.0); Nucleated Red Blood Cells % 0.1 %; Platelet Count (auto) 63 10^3/uL (140-450); Red Blood Cells 3.86 10^6/uL (4.0-5.20); Red Cell Distribution Width 14.5 % (11.8-14.3)
[2018-07-10 16:51] LABS: Alanine Aminotransferase 23 U/L (13-56); Albumin 3.5 g/dL (3.4-5.0); Amylase 66 U/L (25-115); Anion Gap 9 (5-15); Aspartate Aminotransferase 27 U/L (15-37); Blood Urea Nitrogen 7 mg/dL (7-18); Calcium 9.2 mg/dL (8.5-10.1); Carbon Dioxide 26 mmol/L (21-32); Chloride 106 mmol/L (98-107); GFR African American 74 mL/min; GFR Non-African American 61 mL/min; Glucose 96 mg/dL (74-106); Lipase 177 U/L (73-393); Magnesium 1.9 mg/dL (1.6-2.6); Potassium 3.5 mmol/L (3.5-5.1); Sodium 141 mmol/L (136-145)
[2018-07-10 16:56] LABS: Alkaline Phosphatase 114 U/L (45-117); Bilirubin, Total 1.2 mg/dL (0.2-1.0); Total Protein 6.9 g/dL (6.4-8.2)
[2018-07-10] MEDS ORDERED: LACTULOSE 20Gm/30ML SOLN PO ONE (17:15)
[2018-07-10] MEDS ORDERED: cefTRIAXone 1GM/50ML D5W 50 ML IV ONE (18:15)
[2018-07-10] MEDS ORDERED: MORPHINE SULFATE 4 MG/ML SYR/VIAL IV PRN (18:15)
[2018-07-10] MEDS ORDERED: DEXTROSE (50%) 50ML SYRG IV PRN (18:15)
[2018-07-10] MEDS ORDERED: NITROGLYCERIN 0.4 MG SL TAB SL PRN (18:15)
[2018-07-10] MEDS: POTASSIUM CHL 10 Meq TABLET PO SCH (18:59)
[2018-07-10 20:00] VITALS: BP 98/50
[2018-07-10 21:36] VITALS: BP 98/50
[2018-07-10] MEDS: InsuLIN REG 1unit/0.01ml Soln (100units/ml) SC SCH (22:00)
[2018-07-10] MEDS: LACTULOSE 20Gm/30ML SOLN PO SCH (22:12)
[2018-07-10] MEDS: DOCUSATE ORAL LIQUID 100 MG/10 ML UD PO SCH (22:12)
[2018-07-10] MEDS: VENLAFAXINE HCL 25MG TABLET PO SCH (22:13)
[2018-07-10] MEDS: RIFAXIMIN 550 MG TAB PO SCH (22:13)
[2018-07-10] MEDS: PANTOPRAZOLE 40 MG TAB PO SCH (22:13)
[2018-07-10] MEDS: ACCU-CHEK COMFORT CURVE STRIP VI SCH (22:14)
[2018-07-10] MEDS: traMADol HCL 50 MG TAB PO PRN (22:48)
[2018-07-10] MEDS: ONDANSETRON HCL 4 MG/2 ML VIAL IV PRN (22:54)
[2018-07-11] MEDS: metroNIDAZOLE 500MG/100ML 100 ML IV SCH ×5 (00:10→23:59)
[2018-07-11] MEDS: TEMAZEPAM 15 MG CAP PO PRN ×2 (00:20→21:46)
[2018-07-11] MEDS ORDERED: INFLUENZA QUAD 2018-2019 0.5 ML SYRG IM ONE (01:15)
[2018-07-11] MEDS ORDERED: PNEUMOCOCCAL VACC POLYS 25 MCG/0.5 ML VIAL IM ONE (01:15)
[2018-07-11 04:43] VITALS: BP 101/56
[2018-07-11] MEDS: LACTULOSE 20Gm/30ML SOLN PO SCH ×4 (05:52→21:45)
[2018-07-11 06:12] LABS: Hemoglobin 13.2 g/dL (12.2-16.2)
[2018-07-11] MEDS: ACCU-CHEK COMFORT CURVE STRIP VI SCH ×4 (06:12→21:47)
[2018-07-11] MEDS: InsuLIN REG 1unit/0.01ml Soln (100units/ml) SC SCH ×4 (06:12→21:57)
[2018-07-11 06:15] LABS: Hematocrit 38.2 % (36.0-46.0); Mean Corpuscular Hemoglobin 33.7 pg (28.0-32.0); Mean Corpuscular Hgb Conc. 34.5 g/dL (32.0-36.0); Mean Corpuscular Volume 97.6 fL (80.0-100.0); Platelet Count (auto) 55 10^3/uL (140-450); Red Blood Cells 3.91 10^6/uL (4.0-5.20); Red Cell Distribution Width 14.2 % (11.8-14.3)
[2018-07-11 06:40] LABS: White Blood Cell 1.9 10^3/uL (4.4-10.8)
[2018-07-11 06:42] LABS: Band Neutrophils % (manual) 0; Basophils % (manual) 0 (0.0-2.0); Blast Cells 0; Metamyelocytes % 0; Myelocytes % 0; Promyelocytes % 0; Reactive Lymphocytes 0
[2018-07-11 07:25] LABS: Cholesterol 154 mg/dL (< 200); Triglycerides 61 mg/dL (< 150)
[2018-07-11 07:27] LABS: HDL Cholesterol 74 mg/dL (40-59); LDL Cholesterol 81 mg/dL (< 100)
[2018-07-11 07:59] LABS: Eosinophils % (manual) 2 (0-7); Lymphocytes % (manual) 42 (10.0-50.0); Monocytes % (manual) 7 (0-12)
[2018-07-11 08:54] VITALS: BP 99/54
[2018-07-11] MEDS: SPIRONOLACTONE 25 MG TAB PO SCH (09:44)
[2018-07-11] MEDS: DOCUSATE ORAL LIQUID 100 MG/10 ML UD PO SCH ×2 (09:44→21:45)
[2018-07-11] MEDS: cefTRIAXone 1GM/50ML D5W 50 ML IV SCH (09:44)
[2018-07-11] MEDS: POTASSIUM CHL 10 Meq TABLET PO SCH (09:45)
[2018-07-11] MEDS: VENLAFAXINE HCL 25MG TABLET PO SCH ×2 (09:45→21:46)
[2018-07-11] MEDS: lamoTRIgine 100 MG TAB PO SCH (09:45)
[2018-07-11] MEDS: PANTOPRAZOLE 40 MG TAB PO SCH ×2 (09:46→21:46)
[2018-07-11] MEDS: RIFAXIMIN 550 MG TAB PO SCH ×2 (09:46→21:45)
[2018-07-11] MEDS: FUROSEMIDE 40 MG TAB PO SCH (09:46)
[2018-07-11] MEDS: TOPIRAMATE 100 MG TAB PO SCH (09:46)
[2018-07-11] MEDS: traMADol HCL 50 MG TAB PO PRN ×2 (10:30→16:59)
[2018-07-11 13:00] VITALS: BP 117/52
[2018-07-11 17:26] VITALS: BP 100/50
[2018-07-11] MEDS: LORazepam 0.5 MG TAB PO PRN (18:20)
[2018-07-11] MEDS: hydrOXYzine HCL 10 MG TAB PO PRN (20:28)
[2018-07-11 22:00] VITALS: BP 105/56
[2018-07-12] MEDS: LACTULOSE 20Gm/30ML SOLN PO SCH ×4 (05:52→22:48)
[2018-07-12] MEDS: ACCU-CHEK COMFORT CURVE STRIP VI SCH ×2 (05:52→12:05)
[2018-07-12] MEDS: InsuLIN REG 1unit/0.01ml Soln (100units/ml) SC SCH ×2 (05:52→12:00)
[2018-07-12] MEDS: metroNIDAZOLE 500MG/100ML 100 ML IV SCH ×2 (05:52→12:05)
[2018-07-12 06:27] VITALS: BP 117/62
[2018-07-12] MEDS: traMADol HCL 50 MG TAB PO PRN ×2 (08:58→18:41)
[2018-07-12 09:00] VITALS: BP 132/65
[2018-07-12] MEDS: DOCUSATE ORAL LIQUID 100 MG/10 ML UD PO SCH ×2 (09:59→22:48)
[2018-07-12] MEDS: cefTRIAXone 1GM/50ML D5W 50 ML IV SCH (09:59)
[2018-07-12] MEDS: VENLAFAXINE HCL 25MG TABLET PO SCH ×2 (10:00→22:48)
[2018-07-12] MEDS: PANTOPRAZOLE 40 MG TAB PO SCH ×2 (10:00→22:49)
[2018-07-12] MEDS: TOPIRAMATE 100 MG TAB PO SCH (10:02)
[2018-07-12] MEDS: RIFAXIMIN 550 MG TAB PO SCH ×2 (10:02→22:49)
[2018-07-12] MEDS: POTASSIUM CHL 10 Meq TABLET PO SCH (10:02)
[2018-07-12] MEDS: hydrOXYzine HCL 10 MG TAB PO PRN ×2 (10:02→22:50)
[2018-07-12] MEDS: lamoTRIgine 100 MG TAB PO SCH (10:02)
[2018-07-12] MEDS: SPIRONOLACTONE 25 MG TAB PO SCH (10:03)
[2018-07-12] MEDS: FUROSEMIDE 40 MG TAB PO SCH (10:04)
[2018-07-12 13:00] VITALS: BP 115/65
[2018-07-12 17:00] VITALS: BP 124/60
[2018-07-12 20:00] VITALS: BP 125/62
[2018-07-12 22:00] VITALS: BP 125/62
[2018-07-12] MEDS: TEMAZEPAM 15 MG CAP PO PRN (22:50)
[2018-07-12] MEDS: ONDANSETRON HCL 4 MG/2 ML VIAL IV PRN (22:50)
[2018-07-13] MEDS: traMADol HCL 50 MG TAB PO PRN ×3 (02:57→22:31)
[2018-07-13 05:00] VITALS: BP 124/64
[2018-07-13] MEDS: LACTULOSE 20Gm/30ML SOLN PO SCH ×4 (06:00→22:30)
[2018-07-13 06:20] LABS: Basophils # (auto) 0 uL; Eosinophils # (auto) 0.1 uL; Eosinophils % (auto) 3.5 % (0.0-7.0); Hematocrit 35.9 % (36.0-46.0); Hemoglobin 12.6 g/dL (12.2-16.2); Lymphocytes # (auto) 0.8 uL; Lymphocytes % (auto) 32.6 % (10.0-50.0); Mean Corpuscular Hemoglobin 33.7 pg (28.0-32.0); Mean Corpuscular Hgb Conc. 35.2 g/dL (32.0-36.0); Mean Corpuscular Volume 95.9 fL (80.0-100.0); Monocytes # (auto) 0.3 uL; Monocytes % (auto) 12.4 % (0.0-12.0); Neutrophils # (auto) 1.3 uL; Neutrophils % (auto) 50.5 % (37.0-80.0); Nucleated Red Blood Cells % 0.2 %; Platelet Count (auto) 53 10^3/uL (140-450); Red Blood Cells 3.74 10^6/uL (4.0-5.20); Red Cell Distribution Width 13.8 % (11.8-14.3); White Blood Cell 2.6 10^3/uL (4.4-10.8)
[2018-07-13 06:36] LABS: BUN/Creatinine Ratio 6.9; Calcium 8.8 mg/dL (8.5-10.1); Potassium 3.3 mmol/L (3.5-5.1)
[2018-07-13 08:52] VITALS: BP 113/64
[2018-07-13] MEDS: POTASSIUM CHL 10 Meq TABLET PO SCH (09:41)
[2018-07-13] MEDS: DOCUSATE ORAL LIQUID 100 MG/10 ML UD PO SCH ×3 (09:41→22:30)
[2018-07-13] MEDS: TOPIRAMATE 100 MG TAB PO SCH (09:41)
[2018-07-13] MEDS: FUROSEMIDE 40 MG TAB PO SCH (09:41)
[2018-07-13] MEDS: lamoTRIgine 100 MG TAB PO SCH (09:41)
[2018-07-13] MEDS: RIFAXIMIN 550 MG TAB PO SCH ×2 (09:42→22:31)
[2018-07-13] MEDS: VENLAFAXINE HCL 25MG TABLET PO SCH ×2 (09:42→22:30)
[2018-07-13] MEDS: PANTOPRAZOLE 40 MG TAB PO SCH ×2 (09:42→22:31)
[2018-07-13] MEDS: SPIRONOLACTONE 25 MG TAB PO SCH (09:42)
[2018-07-13] MEDS: ONDANSETRON HCL 4 MG/2 ML VIAL IV PRN ×2 (11:08→18:46)
[2018-07-13] MEDS: hydrOXYzine HCL 10 MG TAB PO PRN ×2 (11:08→17:47)
[2018-07-13] MEDS ORDERED: POTASSIUM CHL 20 Meq TABLET PO ONE (13:00)
[2018-07-13 13:10] VITALS: BP 120/62
[2018-07-13 17:05] VITALS: BP 108/51
[2018-07-13 17:27] LABS: Alcohol, Urine < 3.0 mg/dL (0-5); Amphetamine Screen, Urine NEGATIVE (NEGATIVE); Barbiturate Scree,Urine NEGATIVE (NEGATIVE); Benzodiazephine Screen, Urine NEGATIVE (NEGATIVE); Cannabinoid Screen, Urine NEGATIVE (NEGATIVE); Cocaine Screen, Urine NEGATIVE (NEGATIVE); Opiate Scree,Urine NEGATIVE (NEGATIVE); Phencyclidine Screen, Urine NEGATIVE (NEGATIVE)
[2018-07-13] MEDS: SUCRALFATE 1 GM/10 ML ORAL SUSP PO SCH ×2 (17:46→22:30)
[2018-07-13 20:00] VITALS: BP 109/64
[2018-07-13 22:00] VITALS: BP 109/64
[2018-07-14] MEDS: LORazepam 0.5 MG TAB PO PRN (02:55)
[2018-07-14] MEDS: hydrOXYzine HCL 10 MG TAB PO PRN ×2 (02:56→14:41)
[2018-07-14 05:15] VITALS: BP 122/66
[2018-07-14] MEDS: LACTULOSE 20Gm/30ML SOLN PO SCH ×2 (06:00→12:00)
[2018-07-14] MEDS: traMADol HCL 50 MG TAB PO PRN (06:25)
[2018-07-14] MEDS: SUCRALFATE 1 GM/10 ML ORAL SUSP PO SCH ×2 (06:33→14:12)
[2018-07-14 08:43] VITALS: BP 104/53
[2018-07-14] MEDS: DOCUSATE ORAL LIQUID 100 MG/10 ML UD PO SCH (09:41)
[2018-07-14] MEDS: VENLAFAXINE HCL 25MG TABLET PO SCH (09:47)
[2018-07-14] MEDS: RIFAXIMIN 550 MG TAB PO SCH (09:47)
[2018-07-14] MEDS: PANTOPRAZOLE 40 MG TAB PO SCH (09:48)
[2018-07-14] MEDS: SPIRONOLACTONE 25 MG TAB PO SCH (09:48)
[2018-07-14] MEDS: lamoTRIgine 100 MG TAB PO SCH (09:48)
[2018-07-14] MEDS: POTASSIUM CHL 10 Meq TABLET PO SCH (09:48)
[2018-07-14] MEDS: TOPIRAMATE 100 MG TAB PO SCH (09:48)
[2018-07-14] MEDS: FUROSEMIDE 40 MG TAB PO SCH (09:50)
[2018-07-14 13:06] VITALS: BP 115/63
[2018-07-14] MEDS ORDERED: TAM04C PO (14:17)
[2018-07-14] MEDS ORDERED: SUCR1TAB38 PO (14:19)
[2018-07-14 15:00] VITALS: BP 104/53
[2018-07-14] MEDS ORDERED: TAMSULOSIN HYDROCHLORIDE 0.4 MG CAP PO SCH (18:00)
== END 2018-07-14 15:45 | disposition home or self-care (01) | DRG 465 ==
LOC: ER 15:41 → TELE 15:42 → TELE-WESTW 20:00
PROVIDERS: ADMIT Internal Medicine; ATTEND Internal Medicine
DX: N13.2 Hydronephrosis with renal and ureteral calculous obstruction (principal); D69.59 Other secondary thrombocytopenia; K76.6 Portal hypertension; D69.6 Thrombocytopenia, unspecified; B19.10 Unspecified viral hepatitis B without hepatic coma; E11.9 Type 2 diabetes mellitus without complications; F41.9 Anxiety disorder, unspecified; M19.90 Unspecified osteoarthritis, unspecified site; D72.819 Decreased white blood cell count, unspecified; K72.90 Hepatic failure, unspecified without coma; G89.29 Other chronic pain; F31.30 Bipolar disorder, current episode depressed, mild or moderate severity, unspecified; J44.9 Chronic obstructive pulmonary disease, unspecified; B19.20 Unspecified viral hepatitis C without hepatic coma; K21.9 Gastro-esophageal reflux disease without esophagitis; K74.60 Unspecified cirrhosis of liver; Z83.3 Family history of diabetes mellitus; Z82.49 Family history of ischemic heart disease and other diseases of the circulatory system; Z90.49 Acquired absence of other specified parts of digestive tract; Z90.710 Acquired absence of both cervix and uterus; Z90.89 Acquired absence of other organs; Z88.6 Allergy status to analgesic agent; Z88.8 Allergy status to other drugs, medicaments and biological substances
CPT/HCPCS: 36415; 74176; 80048; 80053; 80061; 80307; 81001; 82140; 82150; 82962; 83036; 83690; 83735; 84132; 84484; 85007; 85025; 85027; 87081; 93005; 96374; 96375; G0378; J0696; J2405; J3490

== ENCOUNTER 2018-08-22 17:49 | Emergency (ER) | payer MEDICAID ==
[~2018-08-22] VITALS: Ht 162.6 cm; Wt 66.7 kg
[~2018-08-22 17:49] MED LIST changes: +SUCR1TAB38 PO; +TAM04C PO
[2018-08-22 18:21] VITALS: BP 128/54
[2018-08-22] MEDS ORDERED: methylPREDNISolone SOD SUCC 125 MG/2 ML VL IM ONE (19:30)
[2018-08-22] MEDS ORDERED: BACLOFEN 10 MG TAB PO ONE (19:30)
== END 2018-08-23 00:07 | disposition home or self-care (01) ==
LOC: ER 17:52
DX: S33.5XXA Sprain of ligaments of lumbar spine, initial encounter (principal); M54.16 Radiculopathy, lumbar region; J44.9 Chronic obstructive pulmonary disease, unspecified; E11.9 Type 2 diabetes mellitus without complications; K21.9 Gastro-esophageal reflux disease without esophagitis; M19.90 Unspecified osteoarthritis, unspecified site; Z90.710 Acquired absence of both cervix and uterus; Z90.49 Acquired absence of other specified parts of digestive tract; Z90.89 Acquired absence of other organs; Z87.891 Personal history of nicotine dependence; Z79.899 Other long term (current) drug therapy; Z88.6 Allergy status to analgesic agent; Z88.8 Allergy status to other drugs, medicaments and biological substances; X50.9XXA Other and unspecified overexertion or strenuous movements or postures, initial encounter; Y93.89 Activity, other specified; Y99.8 Other external cause status; Y92.89 Other specified places as the place of occurrence of the external cause
CPT/HCPCS: 72100; 96372; 99283; J2930

== ENCOUNTER 2018-10-16 15:54 | Emergency (ER) | payer MEDICAID ==
[~2018-10-16] VITALS: Ht 162.6 cm; Wt 66.7 kg
[2018-10-16 16:47] LABS: Basophils # (auto) 0 uL; Basophils % (auto) 0.2 % (0.0-2.0); Eosinophils # (auto) 0.1 uL; Hemoglobin 13.1 g/dL (12.2-16.2); Monocytes # (auto) 0.3 uL; Nucleated Red Blood Cells % 0.1 %
[2018-10-16 16:49] LABS: Eosinophils % (auto) 2.3 % (0.0-7.0); Hematocrit 37.9 % (36.0-46.0); Lymphocytes # (auto) 0.7 uL; Mean Corpuscular Hemoglobin 32.9 pg (28.0-32.0); Mean Corpuscular Hgb Conc. 34.6 g/dL (32.0-36.0); Mean Corpuscular Volume 95.1 fL (80.0-100.0); Monocytes % (auto) 10.6 % (0.0-12.0); Neutrophils # (auto) 1.7 uL; Neutrophils % (auto) 61.9 % (37.0-80.0); Platelet Count (auto) 49 10^3/uL (140-450); Red Blood Cells 3.98 10^6/uL (4.0-5.20); Red Cell Distribution Width 13.9 % (11.8-14.3); White Blood Cell 2.7 10^3/uL (4.4-10.8)
[2018-10-16 16:58] LABS: Chloride 109 mmol/L (98-107); Potassium 3.6 mmol/L (3.5-5.1); Sodium 139 mmol/L (136-145)
[2018-10-16 17:03] LABS: Alanine Aminotransferase 19 U/L (13-56); Albumin 3.1 g/dL (3.4-5.0); Alkaline Phosphatase 113 U/L (45-117); Anion Gap 4 (5-15); Aspartate Aminotransferase 18 U/L (15-37); BUN/Creatinine Ratio 9.7; Bilirubin, Total 0.7 mg/dL (0.2-1.0); Blood Urea Nitrogen 7 mg/dL (7-18); Calcium 8.7 mg/dL (8.5-10.1); Carbon Dioxide 26 mmol/L (21-32); GFR African American 108 mL/min; GFR Non-African American 89 mL/min; Glucose 95 mg/dL (74-106); Total Protein 6.7 g/dL (6.4-8.2)
[2018-10-16] MEDS ORDERED: SODIUM CHLORIDE 0.9% 500 ML IV ONE (20:45)
[2018-10-16 21:47] LABS: Lactic Acid w/Reflex 2.4 mmol/L (0.4-2.0)
[2018-10-16 22:13] VITALS: BP 110/57
== END 2018-10-16 22:30 | disposition home or self-care (01) ==
LOC: ER 15:54
DX: E86.0 Dehydration (principal); K72.90 Hepatic failure, unspecified without coma; J44.9 Chronic obstructive pulmonary disease, unspecified; E11.9 Type 2 diabetes mellitus without complications; K21.9 Gastro-esophageal reflux disease without esophagitis; M19.90 Unspecified osteoarthritis, unspecified site; Z90.49 Acquired absence of other specified parts of digestive tract; Z90.710 Acquired absence of both cervix and uterus; Z87.891 Personal history of nicotine dependence; Z88.6 Allergy status to analgesic agent
CPT/HCPCS: 36415; 71046; 74178; 80053; 83605; 84484; 85025; 93005; 96360; 99284; J7030

== ENCOUNTER 2019-01-28 17:33 | Emergency (ER) | payer MEDICAID ==
[~2019-01-28] VITALS: Ht 162.6 cm; Wt 69.9 kg
[2019-01-28 18:52] LABS: Basophils # (auto) 0 uL; Eosinophils # (auto) 0.1 uL; Monocytes # (auto) 0.2 uL; Neutrophils # (auto) 1.6 uL; Nucleated Red Blood Cells % 0.1 %; Platelet Count (auto) 57 10^3/uL (140-450)
[2019-01-28 18:54] LABS: Basophils % (auto) 0.3 % (0.0-2.0); Eosinophils % (auto) 2.5 % (0.0-7.0); Hemoglobin 14.4 g/dL (12.2-16.2); Lymphocytes # (auto) 0.8 uL; Mean Corpuscular Hemoglobin 33.1 pg (28.0-32.0); Mean Corpuscular Hgb Conc. 35.2 g/dL (32.0-36.0); Monocytes % (auto) 8.2 % (0.0-12.0); Red Blood Cells 4.37 10^6/uL (4.0-5.20); Red Cell Distribution Width 14.4 % (11.8-14.3); White Blood Cell 2.7 10^3/uL (4.4-10.8)
[2019-01-28 19:18] LABS: Albumin 3.5 g/dL (3.4-5.0); Calcium 9.4 mg/dL (8.5-10.1); Potassium 3.1 mmol/L (3.5-5.1)
[2019-01-28 19:31] LABS: Bilirubin, Total 0.9 mg/dL (0.2-1.0); Total Protein 7.1 g/dL (6.4-8.2)
[2019-01-28 22:44] LABS: Urine Bacteria FEW /hpf (None Seen); Urine Blood Negative /uL (Negative); Urine Hyaline Cast MOD /lpf (0 - 2); Urine Specific Gravity 1.009 (1.001-1.035); Urine WBC 2 /hpf (0 - 5)
[2019-01-29] MEDS ORDERED: ONDANSETRON HCL 4 MG/2 ML VIAL IV ONE (03:00)
[2019-01-29] MEDS ORDERED: HYDROmorphone HCL 2 MG/ML VL IV ONE (03:00)
[2019-01-29 05:44] VITALS: BP 105/52
== END 2019-01-29 06:14 | disposition home or self-care (01) ==
LOC: ER 17:33
DX: B18.2 Chronic viral hepatitis C (principal); K74.60 Unspecified cirrhosis of liver; J44.9 Chronic obstructive pulmonary disease, unspecified; E11.9 Type 2 diabetes mellitus without complications; K21.9 Gastro-esophageal reflux disease without esophagitis; M25.531 Pain in right wrist; Z90.49 Acquired absence of other specified parts of digestive tract; Z90.710 Acquired absence of both cervix and uterus; Z87.891 Personal history of nicotine dependence; Z88.6 Allergy status to analgesic agent; Z88.8 Allergy status to other drugs, medicaments and biological substances; Z79.899 Other long term (current) drug therapy
CPT/HCPCS: 36415; 80053; 81001; 82140; 83605; 83690; 84484; 85025; 93005; 96374; 96375; 99284; J1170; J2405

== ENCOUNTER 2019-11-24 18:10 | Inpatient (IN) | payer MEDICAID ==
[~2019-11-24] VITALS: Ht 30.5 cm; Wt 92.3 kg
[~2019-11-24 18:10] MED LIST changes: +BUPR10DI TOP; -BUPR10DI3 TOP; -POTA1TAB61 PO; -TRAZ100T2 PO; +TRAZ100T3 PO
[2019-11-24 19:33] LABS: Basophils # (auto) 0 10 ^3/uL (0-0.2); Basophils % (auto) 0.2 % (0.0-2.0); Monocytes # (auto) 0.4 10 ^3/uL (0-1.3); Neutrophils # (auto) 2.2 10 ^3/uL (1.6-8.6); Nucleated Red Blood Cells % 0.1 %; Platelet Count (auto) 44 10^3/uL (140-450)
[2019-11-24 19:35] LABS: Eosinophils # (auto) 0.1 10 ^3/uL (0-0.8); Eosinophils % (auto) 1.5 % (0.0-7.0); Hematocrit 40.2 % (36.0-46.0); Lymphocytes # (auto) 0.8 10 ^3/uL (0.4-5.4); Lymphocytes % (auto) 23.7 % (10.0-50.0); Mean Corpuscular Hemoglobin 33.5 pg (28.0-32.0); Mean Corpuscular Hgb Conc. 34.8 g/dL (32.0-36.0); Mean Corpuscular Volume 96.1 fL (80.0-100.0); Monocytes % (auto) 12.6 % (0.0-12.0); Red Blood Cells 4.18 10^6/uL (4.0-5.20); Red Cell Distribution Width 14.6 % (11.8-14.3); White Blood Cell 3.5 10^3/uL (4.4-10.8)
[2019-11-24 19:49] LABS: Albumin 3.4 g/dL (3.4-5.0); Calcium 9.5 mg/dL (8.5-10.1); Potassium 3.7 mmol/L (3.5-5.1)
[2019-11-24 19:51] LABS: BUN/Creatinine Ratio 9.3
[2019-11-24 19:54] LABS: Bilirubin, Total 0.9 mg/dL (0.2-1.0); Total Protein 6.8 g/dL (6.4-8.2)
[2019-11-24 19:55] LABS: INR 1.12 (0.9-1.15)
[2019-11-24 20:39] LABS: Urine Bacteria NONE SEEN /hpf (None Seen); Urine Blood 2+ /uL (Negative); Urine Mucus FEW (None Seen); Urine Specific Gravity 1.007 (1.001-1.035); Urine WBC 4 /hpf (0 - 5)
[2019-11-24 20:49] LABS: Alcohol, Urine < 3.0 mg/dL (0-5); Amphetamine Screen, Urine NEGATIVE (NEGATIVE); Barbiturate Scree,Urine NEGATIVE (NEGATIVE); Benzodiazephine Screen, Urine POSITIVE (NEGATIVE); Cannabinoid Screen, Urine POSITIVE (NEGATIVE); Cocaine Screen, Urine NEGATIVE (NEGATIVE); Opiate Scree,Urine NEGATIVE (NEGATIVE); Phencyclidine Screen, Urine NEGATIVE (NEGATIVE)
[2019-11-24] MEDS ORDERED: NITROGLYCERIN 0.4 MG SL TAB SL PRN (22:00)
[2019-11-24] MEDS ORDERED: TEMAZEPAM 15 MG CAP PO PRN (22:00)
[2019-11-24] MEDS ORDERED: ONDANSETRON HCL 4 MG/2 ML VIAL IV PRN (22:00)
[2019-11-24] MEDS ORDERED: MORPHINE SULF INJ 2 MG/ML SYRINGE 1ML IV PRN (22:00)
[2019-11-24 23:15] VITALS: BP 126/76
[2019-11-25] MEDS: rifAXIMin 550 MG TAB PO SCH ×3 (00:22→21:27)
[2019-11-25] MEDS: LACTULOSE 20Gm/30ML SOLN PO SCH ×3 (00:22→21:27)
[2019-11-25 00:23] VITALS: BP 126/76
[2019-11-25 04:44] VITALS: BP 139/75
[2019-11-25 06:01] LABS: Basophils # (auto) 0 10 ^3/uL (0-0.2); Eosinophils # (auto) 0.1 10 ^3/uL (0-0.8); Hematocrit 37.8 % (36.0-46.0); Hemoglobin 13.4 g/dL (12.2-16.2); Lymphocytes # (auto) 0.8 10 ^3/uL (0.4-5.4); Mean Corpuscular Hemoglobin 33.8 pg (28.0-32.0); Neutrophils # (auto) 1.7 10 ^3/uL (1.6-8.6); Nucleated Red Blood Cells % 0.3 %
[2019-11-25 06:04] LABS: Basophils % (auto) 0.9 % (0.0-2.0); Eosinophils % (auto) 2.3 % (0.0-7.0); Lymphocytes % (auto) 26.8 % (10.0-50.0); Mean Corpuscular Hgb Conc. 35.6 g/dL (32.0-36.0); Monocytes # (auto) 0.3 10 ^3/uL (0-1.3); Monocytes % (auto) 11.4 % (0.0-12.0); Neutrophils % (auto) 58.6 % (37.0-80.0); Platelet Count (auto) 42 10^3/uL (140-450); Red Blood Cells 3.98 10^6/uL (4.0-5.20)
[2019-11-25 06:16] LABS: Potassium 3.5 mmol/L (3.5-5.1)
[2019-11-25 06:21] LABS: BUN/Creatinine Ratio 8.6; Calcium 9.1 mg/dL (8.5-10.1)
[2019-11-25 09:00] VITALS: BP 130/76
[2019-11-25] MEDS: SPIRONOLACTONE 25 MG TAB PO SCH (09:53)
[2019-11-25] MEDS: lamoTRIgine 100 MG TAB PO SCH (09:54)
[2019-11-25] MEDS: PANTOPRAZOLE 40 MG TAB PO SCH (09:56)
[2019-11-25] MEDS: FUROSEMIDE 40 MG TAB PO SCH (09:56)
[2019-11-25] MEDS ORDERED: diazePAM 5 MG TAB PO ONE (11:30)
[2019-11-25 12:45] VITALS: BP 157/84
[2019-11-25] MEDS ORDERED: METH500T22 PO (17:23)
[2019-11-25] MEDS ORDERED: MELO1TAB73 PO (17:27)
[2019-11-25] MEDS ORDERED: RIFA300C3 PO (17:28)
[2019-11-25] MEDS ORDERED: HYDR-3682 PO (17:29)
[2019-11-25] MEDS ORDERED: ROPI0.5T18 PO (17:30)
[2019-11-25] MEDS ORDERED: AMIT25TA9 PO (17:31)
[2019-11-25 17:32] VITALS: BP 133/63
[2019-11-25] MEDS ORDERED: TEMAZEPAM 15 MG CAP PO PRN (21:00)
[2019-11-25] MEDS ORDERED: traZODone HCL 50 MG TAB PO SCH (21:00)
[2019-11-25 21:57] VITALS: BP 135/68
[2019-11-26 05:09] VITALS: BP 132/77
[2019-11-26 06:03] LABS: Basophils # (auto) 0 10 ^3/uL (0-0.2); Basophils % (auto) 0.2 % (0.0-2.0); Eosinophils # (auto) 0.1 10 ^3/uL (0-0.8); Hematocrit 38.4 % (36.0-46.0); Hemoglobin 13.9 g/dL (12.2-16.2); Mean Corpuscular Hgb Conc. 36.2 g/dL (32.0-36.0); Monocytes # (auto) 0.6 10 ^3/uL (0-1.3); Neutrophils # (auto) 2.1 10 ^3/uL (1.6-8.6); Red Blood Cells 4.09 10^6/uL (4.0-5.20); Red Cell Distribution Width 14.1 % (11.8-14.3); White Blood Cell 3.7 10^3/uL (4.4-10.8)
[2019-11-26 06:10] LABS: Eosinophils % (auto) 2.2 % (0.0-7.0); Lymphocytes # (auto) 0.9 10 ^3/uL (0.4-5.4); Lymphocytes % (auto) 25.4 % (10.0-50.0); Mean Corpuscular Volume 93.9 fL (80.0-100.0); Monocytes % (auto) 15.2 % (0.0-12.0); Nucleated Red Blood Cells % 0.2 %; Platelet Count (auto) 46 10^3/uL (140-450)
[2019-11-26 06:18] LABS: Potassium 3.3 mmol/L (3.5-5.1)
[2019-11-26 06:24] LABS: BUN/Creatinine Ratio 12.2; Calcium 9.2 mg/dL (8.5-10.1); Magnesium 1.8 mg/dL (1.6-2.6)
[2019-11-26 09:00] VITALS: BP 136/80
[2019-11-26] MEDS ORDERED: SILVER SULFADIAZINE 1 % TOPICAL CREAM 50GM TOP SCH (10:00)
[2019-11-26] MEDS: LACTULOSE 20Gm/30ML SOLN PO SCH (10:00)
[2019-11-26] MEDS: lamoTRIgine 100 MG TAB PO SCH (10:01)
[2019-11-26] MEDS: PANTOPRAZOLE 40 MG TAB PO SCH (10:01)
[2019-11-26] MEDS: FUROSEMIDE 40 MG TAB PO SCH (10:01)
[2019-11-26] MEDS: SPIRONOLACTONE 25 MG TAB PO SCH (10:01)
[2019-11-26] MEDS: rifAXIMin 550 MG TAB PO SCH (10:16)
[2019-11-26 12:15] VITALS: BP 136/80
[2019-11-26 13:00] VITALS: BP 108/61
[2019-11-26 17:00] VITALS: BP 129/70
== END 2019-11-26 20:45 | disposition home health service (06) | DRG 52 ==
LOC: ER 18:10 → TELE 18:11 → TELE-WESTW 23:05
PROVIDERS: ADMIT Nurse Practitioner; ATTEND Internal Medicine
DX: G93.41 Metabolic encephalopathy (principal); D61.818 Other pancytopenia; K74.60 Unspecified cirrhosis of liver; B19.20 Unspecified viral hepatitis C without hepatic coma; K21.9 Gastro-esophageal reflux disease without esophagitis; F41.9 Anxiety disorder, unspecified; F31.9 Bipolar disorder, unspecified; M19.90 Unspecified osteoarthritis, unspecified site; J44.9 Chronic obstructive pulmonary disease, unspecified; E11.9 Type 2 diabetes mellitus without complications; F12.90 Cannabis use, unspecified, uncomplicated; Z88.6 Allergy status to analgesic agent; Z88.8 Allergy status to other drugs, medicaments and biological substances; Z79.899 Other long term (current) drug therapy; Z90.49 Acquired absence of other specified parts of digestive tract; Z87.891 Personal history of nicotine dependence; Z90.710 Acquired absence of both cervix and uterus; Z83.3 Family history of diabetes mellitus; Z80.9 Family history of malignant neoplasm, unspecified; Z82.49 Family history of ischemic heart disease and other diseases of the circulatory system; Z82.61 Family history of arthritis; Z84.1 Family history of disorders of kidney and ureter; Z83.42 Family history of familial hypercholesterolemia
CPT/HCPCS: 36415; 70450; 70551; 80048; 80053; 80307; 80320; 81001; 82140; 82962; 83605; 83735; 84484; 85025; 85610; 85730; 87040; 87804; 93005; 95819; 97163; G0378

== ENCOUNTER 2020-02-11 14:53 | Inpatient (IN) | payer MEDICAID ==
[~2020-02-11] VITALS: Ht 162.6 cm; Wt 103.5 kg
[~2020-02-11 14:53] MED LIST changes: +AMIT25TA9 PO; -DICL1GEL26 TOP; -DOCU1CAP24 PO; +HYDR-3682 PO; +MELO1TAB73 PO; +METH500T22 PO; +RIFA300C3 PO; +ROPI0.5T18 PO; -TOPI100T68 PO; -TRAZ100T3 PO
[2020-02-11 15:58] LABS: Basophils # (auto) 0 10 ^3/uL (0-0.2); Basophils % (auto) 0.3 % (0.0-2.0); Eosinophils # (auto) 0 10 ^3/uL (0-0.8); Lymphocytes # (auto) 0.6 10 ^3/uL (0.4-5.4); Monocytes # (auto) 0.3 10 ^3/uL (0-1.3); Platelet Count (auto) 49 10^3/uL (140-450)
[2020-02-11 16:02] LABS: Eosinophils % (auto) 2.2 % (0.0-7.0); Hematocrit 36.7 % (36.0-46.0); Hemoglobin 12.8 g/dL (12.2-16.2); Lymphocytes % (auto) 34.6 % (10.0-50.0); Mean Corpuscular Hemoglobin 33.2 pg (28.0-32.0); Mean Corpuscular Volume 94.7 fL (80.0-100.0); Monocytes % (auto) 16.3 % (0.0-12.0); Neutrophils # (auto) 0.8 10 ^3/uL (1.6-8.6); Neutrophils % (auto) 46.6 % (37.0-80.0); Nucleated Red Blood Cells % 0.5 %; Red Blood Cells 3.87 10^6/uL (4.0-5.20)
[2020-02-11 16:15] LABS: Alanine Aminotransferase 26 U/L (13-56); Albumin 2.7 g/dL (3.4-5.0); Anion Gap 4 (5-15); Aspartate Aminotransferase 40 U/L (15-37); BUN/Creatinine Ratio 9.2; Blood Urea Nitrogen 7 mg/dL (7-18); Calcium 8.6 mg/dL (8.5-10.1); Carbon Dioxide 30 mmol/L (21-32); Chloride 107 mmol/L (98-107); GFR African American 101 mL/min; GFR Non-African American 83 mL/min; Glucose 91 mg/dL (74-106); Magnesium 1.8 mg/dL (1.6-2.6); Potassium 3.7 mmol/L (3.5-5.1); Sodium 141 mmol/L (136-145)
[2020-02-11 16:19] LABS: White Blood Cell 1.8 10^3/uL (4.4-10.8)
[2020-02-11 16:20] LABS: Alkaline Phosphatase 207 U/L (45-117); Bilirubin, Total 0.9 mg/dL (0.2-1.0); Total Protein 6.1 g/dL (6.4-8.2)
[2020-02-11 17:25] LABS: Urine Bacteria FEW /hpf (None Seen); Urine Blood Negative /uL (Negative); Urine Hyaline Cast FEW /lpf (0 - 2); Urine Specific Gravity 1.006 (1.001-1.035); Urine WBC 1 /hpf (0 - 5)
[2020-02-11] MEDS ORDERED: LACTULOSE 20Gm/30ML SOLN PO PRN (20:15)
[2020-02-11] MEDS ORDERED: levoFLOXacin 500MG 100 ML IV ONE (20:15)
[2020-02-11] MEDS ORDERED: TEMAZEPAM 15 MG CAP PO PRN (20:15)
[2020-02-11] MEDS: traMADol HCL 50 MG TAB PO PRN (20:30)
[2020-02-11] MEDS: CLINDAMYCIN 600MG IV 50 ML IV SCH (21:36)
[2020-02-11] MEDS: FAMOTIDINE 20 MG TAB PO SCH (21:36)
--- NOTE | 2020-02-11 21:45 | NUR ---
MS admit from ER TODD MARVIN admitted to tele/MS after SBAR received. Patient oriented to Kristina gutiérrez RN, unit, room, bed, and unit policies regarding patient care and visiting hours. Patient weighed by bedscale and encouraged to call if they need something. All questions and concerns addressed, patient verbalized understanding.
[2020-02-11 22:00] VITALS: BP 122/58
--- NOTE | 2020-02-11 23:30 | NUR ---
IV insertion IV access obtained, via clean sterile technique by inserting 22 gauge catheter at her right hand after 2 attempts. IV secured properly. No trauma to site. Patient tolerated well.
--- NOTE | 2020-02-11 23:31 | NUR ---
IV removal IV infiltrated. IV DC'd with clean sterile technique, catheter fully intact. Pressure dressing applied to site. Patient tolerated well.
[2020-02-12 04:30] VITALS: BP 98/54
[2020-02-12] MEDS: CLINDAMYCIN 600MG IV 50 ML IV SCH ×3 (06:02→21:57)
[2020-02-12] MEDS: traMADol HCL 50 MG TAB PO PRN ×2 (06:06→16:36)
--- NOTE | 2020-02-12 06:57 | NUR ---
Closing note. Patient in lowest possible position with bed rails up x2 and call light within reach. Patient does not complain of pain at this time. Will endorse to day shift RN.
[2020-02-12 08:49] LABS: Basophils # (auto) 0 10 ^3/uL (0-0.2); Basophils % (auto) 0.2 % (0.0-2.0); Eosinophils # (auto) 0.1 10 ^3/uL (0-0.8); Eosinophils % (auto) 3.1 % (0.0-7.0); Hematocrit 36.8 % (36.0-46.0); Hemoglobin 12.6 g/dL (12.2-16.2); Lymphocytes # (auto) 0.7 10 ^3/uL (0.4-5.4); Lymphocytes % (auto) 41.5 % (10.0-50.0); Mean Corpuscular Hemoglobin 32.8 pg (28.0-32.0); Mean Corpuscular Hgb Conc. 34.2 g/dL (32.0-36.0); Mean Corpuscular Volume 95.8 fL (80.0-100.0); Monocytes # (auto) 0.3 10 ^3/uL (0-1.3); Monocytes % (auto) 17.3 % (0.0-12.0); Neutrophils # (auto) 0.6 10 ^3/uL (1.6-8.6); Neutrophils % (auto) 37.9 % (37.0-80.0); Nucleated Red Blood Cells % 1.2 %; Platelet Count (auto) 55 10^3/uL (140-450); Red Blood Cells 3.84 10^6/uL (4.0-5.20)
[2020-02-12 08:50] LABS: White Blood Cell 1.7 10^3/uL (4.4-10.8)
[2020-02-12 09:00] VITALS: BP 112/57
[2020-02-12] MEDS: levoFLOXacin 500MG 100 ML IV SCH (10:16)
[2020-02-12] MEDS: FAMOTIDINE 20 MG TAB PO SCH ×2 (10:16→21:57)
[2020-02-12] MEDS: LACTULOSE 20Gm/30ML SOLN PO SCH ×4 (13:15→21:57)
[2020-02-12 14:00] VITALS: BP 109/57
--- NOTE | 2020-02-12 14:36 | NUR ---
PT eval orders received. Pt is being ruled out for DVT, will attempt eval tomorrow.
--- NOTE | 2020-02-12 16:33 | NUR ---
ss consult Per consult requesting advanced directive. Patient has been provided with advanced directive. Addendum: 02/12/20 at 1634 by Divya Carlos Amended: Links added.
--- NOTE | 2020-02-12 16:52 | NUR ---
DR PEREZ PAGED TWICE RE: PAIN MEDICATION. STILL WAITING FOR CALL BACK.
[2020-02-12 17:00] VITALS: BP 130/49
--- NOTE | 2020-02-12 17:13 | NUR ---
SPOKE TO DR PEREZ INFORMED MD OF PT'S PAIN MEDS REQUEST AND ALSO ABOUT PT'S HOME MEDICATIONS. NEW ORDERS RECEIVED. MD ONLY WANT TO CONTINUE THE AMITRIPTYLINE, PO, AT THIS TIME. Addendum: 02/12/20 at 1751 by Allie Zamudio RN ADDENDUM MD IS AWARE OF PT'S ALLERGIES.
--- NOTE | 2020-02-12 17:50 | NUR ---
CLARIFIED ACETAMINOPHEN ALLERY WITH PT PER PT, NOTHING HAPPENS WHEN SHE TAKES A TYLENOL AND THAT SHE CAN TAKE NORCO.
--- NOTE | 2020-02-12 19:00 | NUR ---
Opening Shift Note Assumed care of patient, awake and alert. No S/S of distress/SOB. Patient complains of pain in her lower extremities, will give medications when due for pain and continue to monitor patient. Instructed on POC and to call for assist PRN, will continue to monitor for changes Q1hr and PRN. Patient in the lowest possible position with bed rails up x2 and call light within reach.
[2020-02-12 20:00] VITALS: BP 110/53
--- NOTE | 2020-02-12 20:30 | NUR ---
Patient started on [place] for pain 10/10 in her lower extremities. Will continue to monitor patient.
[2020-02-12] MEDS: HYDROcodone-ACET 5/325MG TAB PO PRN (20:38)
[2020-02-12] MEDS: AMITRIPTYLINE HCL 25 MG TAB PO SCH (21:57)
[2020-02-12 22:00] VITALS: BP 110/53
[2020-02-13] MEDS: HYDROcodone-ACET 5/325MG TAB PO PRN ×3 (02:37→17:54)
[2020-02-13 05:00] VITALS: BP 104/57
[2020-02-13] MEDS: CLINDAMYCIN 600MG IV 50 ML IV SCH ×3 (05:36→21:54)
[2020-02-13] MEDS: LACTULOSE 20Gm/30ML SOLN PO SCH ×3 (05:36→21:55)
[2020-02-13 07:49] LABS: Basophils # (auto) 0 10 ^3/uL (0-0.2); Eosinophils # (auto) 0 10 ^3/uL (0-0.8); Lymphocytes # (auto) 0.7 10 ^3/uL (0.4-5.4); Mean Corpuscular Volume 95.9 fL (80.0-100.0); Monocytes # (auto) 0.3 10 ^3/uL (0-1.3)
[2020-02-13 07:52] LABS: Basophils % (auto) 0.5 % (0.0-2.0); Eosinophils % (auto) 2.8 % (0.0-7.0); Hematocrit 35.1 % (36.0-46.0); Hemoglobin 12.2 g/dL (12.2-16.2); Lymphocytes % (auto) 39.6 % (10.0-50.0); Mean Corpuscular Hemoglobin 33.3 pg (28.0-32.0); Mean Corpuscular Hgb Conc. 34.7 g/dL (32.0-36.0); Neutrophils # (auto) 0.7 10 ^3/uL (1.6-8.6); Neutrophils % (auto) 37.4 % (37.0-80.0); Nucleated Red Blood Cells % 0.2 %; Platelet Count (auto) 29 10^3/uL (140-450); Red Blood Cells 3.66 10^6/uL (4.0-5.20)
[2020-02-13 08:01] LABS: Monocytes % (auto) 19.7 % (0.0-12.0)
[2020-02-13 08:05] LABS: White Blood Cell 1.7 10^3/uL (4.4-10.8)
[2020-02-13 08:08] LABS: BUN/Creatinine Ratio 14.9; Calcium 9.1 mg/dL (8.5-10.1); Potassium 3.7 mmol/L (3.5-5.1)
[2020-02-13 09:00] VITALS: BP 100/54
[2020-02-13] MEDS: FAMOTIDINE 20 MG TAB PO SCH ×2 (09:25→21:55)
[2020-02-13] MEDS: levoFLOXacin 500MG 100 ML IV SCH (09:25)
[2020-02-13] MEDS: POTASSIUM CHL 10 Meq TABLET PO SCH (09:25)
[2020-02-13] MEDS ORDERED: FUROSEMIDE 20 MG TAB PO SCH (10:00)
[2020-02-13 13:00] VITALS: BP 121/78
[2020-02-13 17:00] VITALS: BP 119/57
--- NOTE | 2020-02-13 19:00 | NUR ---
Opening Shift Note Assumed care of patient, awake and alert. No S/S of distress/SOB or pain. Instructed on POC and to call for assist PRN, will continue to monitor for changes Q1hr and PRN. Patient in the lowest possible position with bed rails up x2 and call light within reach.
[2020-02-13 20:00] VITALS: BP 117/59
[2020-02-13] MEDS: AMITRIPTYLINE HCL 25 MG TAB PO SCH (21:55)
[2020-02-13 22:00] VITALS: BP 117/59
--- NOTE | 2020-02-13 23:00 | NUR ---
Patient stated "I forgot to let you know that before coming to the hospital, I fell on my left knee" Patient complains of more pain on her left knee, stating that she thinks it might be because of this. Scratches are seen on and around the knee. Patient is able to ambulate, pulses are felt bilaterally but are weaker on the left side, left leg is more swollen than the right from cellulitis. Will continue to monitor patient.
[2020-02-14] MEDS: ONDANSETRON HCL 4 MG/2 ML VIAL IV PRN ×4 (01:14→17:39)
--- NOTE | 2020-02-14 01:15 | NUR ---
Patient was nauseous and began vomiting. Patients vomit was clear and liquid. Vital signs were stable, temperature: 97.2, HR: 86, O2: 96, B/P: 105/40, RR: 18. Patient did not complain of pain at this time.Patient was given Zofran for N/V. Patient stated that she normally takes Zofran TID but has not taken any since her hospitalization. Will continue to monitor patient for s/s of N/V and administer Zofran PRN.
[2020-02-14 05:00] VITALS: BP 131/72
[2020-02-14] MEDS: CLINDAMYCIN 600MG IV 50 ML IV SCH ×3 (05:20→20:41)
[2020-02-14] MEDS: LACTULOSE 20Gm/30ML SOLN PO SCH ×3 (05:20→20:42)
[2020-02-14] MEDS: FUROSEMIDE 20 MG/2 ML VIAL IV SCH ×2 (05:20→17:38)
--- NOTE | 2020-02-14 07:38 | NUR ---
Opening Shift Note Assumed care of patient. Awake, alert and oriented. No S/S of distress/SOB or pain. Instructed on POC and to call for assist PRN. Bed locked, in lowest position, call light within reach, side rails up x2, bed alarm on. Will continue to monitor for changes Q1hr and PRN.
[2020-02-14 08:34] VITALS: BP 119/49
[2020-02-14] MEDS: POTASSIUM CHL 10 Meq TABLET PO SCH (09:33)
[2020-02-14] MEDS: levoFLOXacin 500MG 100 ML IV SCH (09:33)
[2020-02-14] MEDS: FAMOTIDINE 20 MG TAB PO SCH ×2 (09:33→20:41)
[2020-02-14 12:30] VITALS: BP 107/83
[2020-02-14 17:15] VITALS: BP 90/55
--- NOTE | 2020-02-14 19:30 | NUR ---
Opening Shift Note Assumed care of patient, awake and alert. No S/S of distress/SOB or pain. Insructed on POC and to callfor assist PRN, will continue to monitor for changes Q1hr and PRN. Fall and safety precautions in place. Call light within reach.
[2020-02-14] MEDS: AMITRIPTYLINE HCL 25 MG TAB PO SCH (20:42)
[2020-02-14] MEDS: HYDROcodone-ACET 5/325MG TAB PO PRN (20:55)
--- NOTE | 2020-02-14 21:00 | NUR ---
IV DRESSING IV dressing changed at this time. Patient tolerated well. Will continue to monitor
[2020-02-14 22:00] VITALS: BP 108/63
[2020-02-15 05:00] VITALS: BP 118/64
[2020-02-15 05:00] LABS: Basophils # (auto) 0 10 ^3/uL (0-0.2); Eosinophils # (auto) 0.1 10 ^3/uL (0-0.8); Hemoglobin 11.8 g/dL (12.2-16.2); Lymphocytes # (auto) 0.8 10 ^3/uL (0.4-5.4); Lymphocytes % (auto) 36.8 % (10.0-50.0); Monocytes # (auto) 0.4 10 ^3/uL (0-1.3); Nucleated Red Blood Cells % 0.2 %; Platelet Count (auto) 45 10^3/uL (140-450); Red Cell Distribution Width 13.9 % (11.8-14.3); White Blood Cell 2.2 10^3/uL (4.4-10.8)
[2020-02-15 05:03] LABS: Basophils % (auto) 0.6 % (0.0-2.0); Hematocrit 33.5 % (36.0-46.0); Mean Corpuscular Hemoglobin 33.5 pg (28.0-32.0); Mean Corpuscular Hgb Conc. 35.1 g/dL (32.0-36.0); Mean Corpuscular Volume 95.5 fL (80.0-100.0); Monocytes % (auto) 16.3 % (0.0-12.0); Neutrophils % (auto) 43.3 % (37.0-80.0); Red Blood Cells 3.51 10^6/uL (4.0-5.20)
[2020-02-15] MEDS: LACTULOSE 20Gm/30ML SOLN PO SCH ×2 (05:14→13:30)
[2020-02-15] MEDS: CLINDAMYCIN 600MG IV 50 ML IV SCH ×2 (05:14→13:30)
[2020-02-15] MEDS: HYDROcodone-ACET 5/325MG TAB PO PRN (05:15)
[2020-02-15] MEDS: FUROSEMIDE 20 MG/2 ML VIAL IV SCH (05:15)
[2020-02-15] MEDS: ONDANSETRON HCL 4 MG/2 ML VIAL IV PRN (05:15)
[2020-02-15 05:21] LABS: INR 1.2 (0.9-1.15); Partial Thromboplastin Time 31.8 sec (23.64-32.05)
[2020-02-15 05:22] LABS: Albumin 2.4 g/dL (3.4-5.0); Calcium 8.7 mg/dL (8.5-10.1); Magnesium 1.7 mg/dL (1.6-2.6); Potassium 3.4 mmol/L (3.5-5.1)
[2020-02-15 05:27] LABS: BUN/Creatinine Ratio 18.4; Phosphorus 3.3 mg/dL (2.5-4.90); Total Protein 5.2 g/dL (6.4-8.2)
--- NOTE | 2020-02-15 07:30 | NUR ---
OPENING NOTE ASSUMED CARE OF PT. PT AWAKE AND ALERT. NO S/S OF SOB/DISTRESS NOTED. BED SET TO LOWEST POSITION/LOCKED, BEDSIDE RAILS UP X2, CALL LIGHT WITHIN REACH. INSTRUCTED PT TO CALL FOR ASSISTANCE. IP DATED ON POC. PT VERBALIZED UNDERSTANDING. WILL CONTINUE TO MONITOR Q1HR AND PRN.
[2020-02-15 09:00] VITALS: BP 99/49
[2020-02-15] MEDS: FAMOTIDINE 20 MG TAB PO SCH (09:32)
[2020-02-15] MEDS: POTASSIUM CHL 10 Meq TABLET PO SCH (09:32)
[2020-02-15] MEDS: levoFLOXacin 500MG 100 ML IV SCH (09:32)
--- NOTE | 2020-02-15 11:21 | NUR ---
Nutrition Assessment Notes Please see attached link for complete assessment [employer] needs IBW 54 [id number] kcals (25-30 kcal/kgBW), Est Protein needs: 54-64 gms/day (1.0-1.2 gm/kgBW). Will continue to monitor and reassess prn. will reassess per dry body wt Addendum: 02/15/20 at [address] Amended: Links added.
[2020-02-15 13:00] VITALS: BP 124/61
[2020-02-15] MEDS ORDERED: POTASSIUM CHL 20 Meq TABLET PO ONE (13:00)
[2020-02-15] MEDS ORDERED: CLIN300C8 PO (13:35)
[2020-02-15] MEDS ORDERED: SACC250C PO (13:35)
[2020-02-15] MEDS ORDERED: LEVO500T21 PO (13:35)
[2020-02-15] MEDS ORDERED: FUROSEMIDE 40 MG TAB PO ONE (14:00)
[2020-02-15] MEDS ORDERED: CLINDAMYCIN HCL 150 MG CAP PO SCH (14:00)
[2020-02-15] MEDS ORDERED: FLORASTOR (S. BOULARDII) 250 MG CAP PO ONE (14:00)
[2020-02-15 15:24] VITALS: BP 124/61
--- NOTE | 2020-02-15 16:48 | NUR ---
Discharge Discharge instructions given as ordered. Encourage to follow up with PMD as instructed. All questions and concerns addressed. Patient verbalized understanding. IV removed with catheter intact, pressure dressing applied.
--- NOTE | 2020-02-15 16:49 | NUR ---
Assessment Patient is a 59-year-old female who is alert and oriented. Prior to admission patient lived with her ruel Collazo and functioned with assistance. Per patient Zay helps with her ADLs. Patient informed me she does not have any medical equipment now and would like a walker to be deliver to home if she meets criteria. Informed patient I will inform bedside nurse regarding order for walker. Advised patient there is a Social Service consult for SNF placement. Patient informed me she does not want to be placed at a [facility] nursing facility stating she has been on service with [employer] and [facility] and would like to resume service with agencies. Per patient she will return to her prior living arrangements post discharge and family will transport patient home. Informed patient she has the right to participate in all discharge planning. Patient verbalized understanding and agreed to discharge plan home. Regarding order for walker, [facility] for safety evaluation, physical therapy, medication management, vitals, and [facility] TCM. Faxed clinical information to , [facility] and [facility]. SG will deliver walker to patient home. Per Leigh Ann with [facility] patient has been accepted and service to start within 24-48hrs upon d/c day. Per Angela with [facility] they will refer patient to [facility] [employer]. Obtain authorization for [facility] [id number] and [id number]. ELIDA Yepez was informed. Addendum: 02/15/20 at 1651 by MO MARES Amended: Links added.
--- NOTE | 2020-02-15 17:09 | NUR ---
Patient taken to vehicle via wheelchair with all personal belongings, accompanied by staff and family member. No distress noted at time of departure.
[2020-02-16] MEDS ORDERED: FLORASTOR (S. BOULARDII) 250 MG CAP PO SCH (10:00)
[2020-02-16] MEDS ORDERED: POTASSIUM CHL 10 Meq TABLET PO SCH (10:00)
[2020-02-16] MEDS ORDERED: levoFLOXacin 500 MG TAB PO SCH (10:00)
[2020-02-16] MEDS ORDERED: FUROSEMIDE 40 MG TAB PO SCH (10:00)
== END 2020-02-15 17:08 | disposition home health service (06) | DRG 383 ==
LOC: ER 14:53 → OVERFLOW 14:54 → CENTRAL 21:32
PROVIDERS: ADMIT Internal Medicine; ATTEND Internal Medicine
DX: L03.115 Cellulitis of right lower limb (principal); Z76.82 Awaiting organ transplant status; D69.59 Other secondary thrombocytopenia; E44.0 Moderate protein-calorie malnutrition; K76.6 Portal hypertension; L03.116 Cellulitis of left lower limb; K70.30 Alcoholic cirrhosis of liver without ascites; D72.819 Decreased white blood cell count, unspecified; E11.9 Type 2 diabetes mellitus without complications; B19.20 Unspecified viral hepatitis C without hepatic coma; E66.9 Obesity, unspecified; F31.9 Bipolar disorder, unspecified; G89.29 Other chronic pain; J44.9 Chronic obstructive pulmonary disease, unspecified; M54.5 Low back pain; F41.9 Anxiety disorder, unspecified; K21.9 Gastro-esophageal reflux disease without esophagitis; M19.90 Unspecified osteoarthritis, unspecified site; Z68.39 Body mass index [BMI] 39.0-39.9, adult; Z80.0 Family history of malignant neoplasm of digestive organs; Z82.49 Family history of ischemic heart disease and other diseases of the circulatory system; Z83.3 Family history of diabetes mellitus; Z87.891 Personal history of nicotine dependence; Z90.710 Acquired absence of both cervix and uterus; Z88.6 Allergy status to analgesic agent; Z88.1 Allergy status to other antibiotic agents; Z88.7 Allergy status to serum and vaccine
CPT/HCPCS: 36415; 71046; 73560; 80048; 80053; 81001; 83735; 83880; 84100; 84484; 85025; 85610; 85652; 85730; 87040; 93005; 93970; 97116; 97163; 97530; G0378; J1956; J2405; J3490

== ENCOUNTER 2020-04-26 16:40 | Inpatient (IN) | payer MEDICAID ==
[~2020-04-26] VITALS: Ht 162.6 cm; Wt 105.8 kg
[~2020-04-26 16:40] MED LIST changes: +CLIN300C8 PO; +LEVO500T21 PO; -MELO1TAB73 PO; -PANT40T PO; -RIFA300C3 PO; +SACC250C PO; +SUCR1TAB22 PO; -SUCR1TAB38 PO; -TAM04C PO; -VENL100T PO; +VENL100T2 PO; +ZINC50TA20 PO; -ZINC50TA4 PO
[2020-04-26 18:07] LABS: Basophils # (auto) 0 10 ^3/uL (0-0.2); Basophils % (auto) 0.7 % (0.0-2.0); Eosinophils # (auto) 0.1 10 ^3/uL (0-0.8); Eosinophils % (auto) 2.3 % (0.0-7.0); Hematocrit 38.7 % (36.0-46.0); Hemoglobin 13.2 g/dL (12.2-16.2); Lymphocytes % (auto) 29.6 % (10.0-50.0); Mean Corpuscular Hemoglobin 32.3 pg (28.0-32.0); Mean Corpuscular Hgb Conc. 34.1 g/dL (32.0-36.0); Mean Corpuscular Volume 94.7 fL (80.0-100.0); Monocytes # (auto) 0.5 10 ^3/uL (0-1.3); Monocytes % (auto) 14.9 % (0.0-12.0); Neutrophils # (auto) 1.8 10 ^3/uL (1.6-8.6); Neutrophils % (auto) 52.5 % (37.0-80.0); Nucleated Red Blood Cells % 0.1 %; Platelet Count (auto) 68 10^3/uL (140-450); Red Blood Cells 4.09 10^6/uL (4.0-5.20); Red Cell Distribution Width 14.7 % (11.8-14.3); White Blood Cell 3.4 10^3/uL (4.4-10.8)
[2020-04-26 18:19] LABS: INR 1.06 (0.9-1.15); Partial Thromboplastin Time 28.7 sec (23.0-31.2)
[2020-04-26 18:23] LABS: Alanine Aminotransferase 25 U/L (13-56); Anion Gap 4 (5-15); Aspartate Aminotransferase 32 U/L (15-37); BUN/Creatinine Ratio 7.1; Blood Alcohol < 3.0 mg/dL (0-5); Blood Urea Nitrogen 6 mg/dL (7-18); Carbon Dioxide 26 mmol/L (21-32); Chloride 109 mmol/L (98-107); GFR African American 90 mL/min; GFR Non-African American 74 mL/min; Glucose 74 mg/dL (74-106); Potassium 3.4 mmol/L (3.5-5.1); Sodium 139 mmol/L (136-145)
[2020-04-26 18:29] LABS: Alkaline Phosphatase 208 U/L (45-117); Bilirubin, Total 0.9 mg/dL (0.2-1.0); Total Protein 6.6 g/dL (6.4-8.2)
[2020-04-26] MEDS ORDERED: LACTULOSE 20Gm/30ML SOLN PO ONE (18:45)
[2020-04-26 19:42] LABS: Alcohol, Urine < 3.0 mg/dL (0-10); Amphetamine Screen, Urine NEGATIVE (NEGATIVE); Barbiturate Scree,Urine NEGATIVE (NEGATIVE); Benzodiazephine Screen, Urine NEGATIVE (NEGATIVE); Cannabinoid Screen, Urine POSITIVE (NEGATIVE); Cocaine Screen, Urine NEGATIVE (NEGATIVE); Opiate Scree,Urine NEGATIVE (NEGATIVE); Phencyclidine Screen, Urine NEGATIVE (NEGATIVE)
[2020-04-26] MEDS ORDERED: POTASSIUM CHL 20 Meq TABLET PO ONE (21:15)
[2020-04-26] MEDS ORDERED: ONDANSETRON HCL 4 MG/2 ML VIAL IV PRN (21:15)
[2020-04-26] MEDS ORDERED: MORPHINE SULF INJ 2 MG/ML SYRINGE 1ML IV PRN (21:15)
[2020-04-26] MEDS ORDERED: NITROGLYCERIN 0.4 MG SL TAB SL PRN (21:15)
[2020-04-26] MEDS: rifAXIMin 550 MG TAB PO SCH ×2 (21:55→22:56)
[2020-04-26 22:20] VITALS: BP 118/47
[2020-04-26] MEDS: FAMOTIDINE 20 MG TAB PO SCH (22:56)
[2020-04-26] MEDS: LACTULOSE 20Gm/30ML SOLN PO SCH (22:57)
[2020-04-27 05:30] VITALS: BP 115/74
[2020-04-27] MEDS: LACTULOSE 20Gm/30ML SOLN PO SCH ×4 (05:49→23:29)
[2020-04-27 05:56] LABS: Basophils # (auto) 0 10 ^3/uL (0-0.2); Eosinophils # (auto) 0.1 10 ^3/uL (0-0.8); Monocytes # (auto) 0.4 10 ^3/uL (0-1.3); Neutrophils # (auto) 1.2 10 ^3/uL (1.6-8.6); White Blood Cell 2.7 10^3/uL (4.4-10.8)
[2020-04-27 05:58] LABS: Basophils % (auto) 0.4 % (0.0-2.0); Eosinophils % (auto) 3.9 % (0.0-7.0); Hematocrit 37.3 % (36.0-46.0); Lymphocytes % (auto) 35.8 % (10.0-50.0); Mean Corpuscular Hemoglobin 32.9 pg (28.0-32.0); Mean Corpuscular Hgb Conc. 34.8 g/dL (32.0-36.0); Mean Corpuscular Volume 94.5 fL (80.0-100.0); Monocytes % (auto) 14.4 % (0.0-12.0); Neutrophils % (auto) 45.5 % (37.0-80.0); Nucleated Red Blood Cells % 0.1 %; Platelet Count (auto) 57 10^3/uL (140-450); Red Blood Cells 3.95 10^6/uL (4.0-5.20); Red Cell Distribution Width 14.8 % (11.8-14.3)
[2020-04-27 06:18] LABS: Potassium 3.1 mmol/L (3.5-5.1)
[2020-04-27 06:29] LABS: Albumin 2.9 g/dL (3.4-5.0); BUN/Creatinine Ratio 7.7; Bilirubin, Total 1.2 mg/dL (0.2-1.0); Calcium 8.8 mg/dL (8.5-10.1)
[2020-04-27 09:00] VITALS: BP 127/65
[2020-04-27] MEDS: rifAXIMin 550 MG TAB PO SCH ×2 (10:03→21:25)
[2020-04-27] MEDS: ZINC SULFATE 220mg CAP or TAB PO SCH (10:04)
[2020-04-27] MEDS: lamoTRIgine 100 MG TAB PO SCH (10:04)
[2020-04-27] MEDS: FAMOTIDINE 20 MG TAB PO SCH ×2 (10:04→21:25)
[2020-04-27] MEDS: SPIRONOLACTONE 25 MG TAB PO SCH (10:04)
[2020-04-27] MEDS: FUROSEMIDE 40 MG TAB PO SCH (10:05)
[2020-04-27] MEDS ORDERED: POTASSIUM CHL 20 Meq TABLET PO ONE (12:45)
[2020-04-27 13:00] VITALS: BP 138/66
[2020-04-27 17:00] VITALS: BP 128/69
--- NOTE | 2020-04-27 19:29 | NUR ---
Opening Shift Note Assumed care of patient, awake and alert x 4. No S/S of distress/SOB. Bed is in lowest position and locked. Call light within reach. Board updated. Tele box number matches monitor and leads are in correct placement. Instructed on POC and to call for assist PRN, will continue to monitor for changes Q1hr and PRN.
[2020-04-27 22:00] VITALS: BP 132/72
[2020-04-27] MEDS ORDERED: AMITRIPTYLINE HCL 25 MG TAB PO SCH (22:00)
--- NOTE | 2020-04-27 22:53 | NUR ---
Spoke to VIKA Ruth and notified him of patient's pain and history of substance abuse with hepatic encephalopathy. Order received: Toradol 15 mg IV once. made aware of ibuprofen/ASA allergy.
[2020-04-27] MEDS ORDERED: KETOROLAC TROMETH 30 MG/ML 1ML VIAL IV ONE (23:00)
--- NOTE | 2020-04-27 23:42 | NUR ---
Spoke to pharmacist from [facility] and told them that patient denies having allergic reaction to Ibuprofen before and cannot recall any reactions. Pharmacist agreed to clear Ketorolac order for administration.
[2020-04-28 05:00] VITALS: BP 126/71
--- NOTE | 2020-04-28 05:12 | NUR ---
Patient reporting pain is tolerable still at 3 out of 10 after administering Toradol IV.
[2020-04-28 05:32] LABS: Potassium 3.3 mmol/L (3.5-5.1)
[2020-04-28] MEDS: LACTULOSE 20Gm/30ML SOLN PO SCH ×2 (05:49→11:45)
--- NOTE | 2020-04-28 08:00 | NUR ---
Opening Shift Note Assumed care of patient, awake, alert, and oriented. No S/S of distress/SOB or pain. Bed in lowest/locked position, bed rails up x2, call light within reach. Instructed on POC and to call for assist PRN. Will continue to monitor for changes Q1hr and PRN.
[2020-04-28 09:00] VITALS: BP 110/87
[2020-04-28] MEDS: FAMOTIDINE 20 MG TAB PO SCH (09:09)
[2020-04-28] MEDS: ZINC SULFATE 220mg CAP or TAB PO SCH (09:09)
[2020-04-28] MEDS: lamoTRIgine 100 MG TAB PO SCH (09:10)
[2020-04-28] MEDS: rifAXIMin 550 MG TAB PO SCH (09:10)
[2020-04-28] MEDS: SPIRONOLACTONE 25 MG TAB PO SCH (09:10)
[2020-04-28] MEDS: FUROSEMIDE 40 MG TAB PO SCH (09:11)
[2020-04-28] MEDS ORDERED: POTASSIUM CHL 20 Meq TABLET PO ONE (09:30)
--- NOTE | 2020-04-28 09:55 | NUR ---
MD ROUNDS DR PEREZ AT BEDSIDE DISCUSSING POC WITH PATIENT. NEW ORDERS RECEIVED/WILL CARRY OUT. WILL CONTINUE TO MONITOR
[2020-04-28] MEDS ORDERED: POTASSIUM CHL 20 Meq TABLET PO SCH (10:00)
--- NOTE | 2020-04-28 12:24 | NUR ---
Assessment Patient is a 59-year-old female who is alert and oriented. Prior to admission patient lived with her ruel Collazo and functioned with assistance. Per patient Zay helps with her ADLs. Patient informed she has a walker for home use. Advised patient there is a social service consult for home health safety evaluation, physical therapy, medication management and vitals. Per patient she is on service with [employer] and would like to resume service with [facility]. Informed patient clinical information will be faxed to agency. Per patient she will return to her prior living arrangements post discharge and family will transport patient home. Informed patient she has the right to participate in all discharge planning. Patient verbalized understanding and agreed to discharge plan home. Faxed clinical information to [facility] and [facility]. Per Leigh Ann with [facility] patient has been accepted and service to start within 24-48hrs upon d/c day. ELIDA Borjas. Addendum: 04/28/20 at 1224 by OM MARES Amended: Links added.
[2020-04-28 13:00] VITALS: BP 132/78
--- NOTE | 2020-04-28 14:27 | NUR ---
obtain authorization from [facility] [id number].
--- NOTE | 2020-04-28 15:22 | NUR ---
Discharge instructions given as ordered. Encourage to follow up with PMD as instructed. All questions and concerns addressed. Patient verbalized understanding. IV removed with catheter intact, pressure dressing applied. Telemetry unit returned to ICU. Patient taken to vehicle via wheelchair with all personal belongings, accompanied by staff. No distress noted at time of departure.
== END 2020-04-28 15:20 | disposition home health service (06) | DRG 279 ==
LOC: ER 16:40 → TELE 16:41 → TELE-CENTR 22:02
PROVIDERS: ADMIT Nurse Practitioner; ATTEND Internal Medicine
DX: K72.90 Hepatic failure, unspecified without coma (principal); E11.9 Type 2 diabetes mellitus without complications; D72.819 Decreased white blood cell count, unspecified; E44.0 Moderate protein-calorie malnutrition; F41.9 Anxiety disorder, unspecified; M19.90 Unspecified osteoarthritis, unspecified site; J44.9 Chronic obstructive pulmonary disease, unspecified; F32.9 Major depressive disorder, single episode, unspecified; K21.9 Gastro-esophageal reflux disease without esophagitis; K76.6 Portal hypertension; G89.29 Other chronic pain; Z88.6 Allergy status to analgesic agent; Z88.5 Allergy status to narcotic agent; Z88.8 Allergy status to other drugs, medicaments and biological substances; Z79.899 Other long term (current) drug therapy; Z90.49 Acquired absence of other specified parts of digestive tract; Z90.89 Acquired absence of other organs; Z90.710 Acquired absence of both cervix and uterus; Z83.3 Family history of diabetes mellitus; Z82.49 Family history of ischemic heart disease and other diseases of the circulatory system; Z80.9 Family history of malignant neoplasm, unspecified; D69.59 Other secondary thrombocytopenia; K74.60 Unspecified cirrhosis of liver; I10 Essential (primary) hypertension
CPT/HCPCS: 36415; 70450; 80053; 80307; 80320; 82140; 82247; 83735; 84132; 84484; 85025; 85610; 85730; 93970; 99291; G0378; J1885

== ENCOUNTER 2020-05-15 10:21 | Inpatient (IN) | payer MEDICAID ==
[~2020-05-15] VITALS: Ht 165.1 cm; Wt 109.9 kg
[2020-05-15] MEDS ORDERED: SODIUM CHLORIDE 0.9% 1,000 ML IV ONE (10:45)
[2020-05-15 11:46] LABS: Hematocrit 33.7 % (36.0-46.0); Platelet Count (auto) 43 10^3/uL (140-450)
[2020-05-15 11:49] LABS: Hemoglobin 11.7 g/dL (12.2-16.2); Mean Corpuscular Hemoglobin 33.2 pg (28.0-32.0); Mean Corpuscular Hgb Conc. 34.6 g/dL (32.0-36.0); Mean Corpuscular Volume 95.8 fL (80.0-100.0); Red Blood Cells 3.52 10^6/uL (4.0-5.20); Red Cell Distribution Width 15.2 % (11.8-14.3)
[2020-05-15 12:00] LABS: White Blood Cell 1.8 10^3/uL (4.4-10.8)
[2020-05-15 12:02] LABS: Basophils % (manual) 0 (0.0-2.0); Blast Cells 0; Metamyelocytes % 0; Myelocytes % 0; Promyelocytes % 0; Reactive Lymphocytes 0
[2020-05-15 12:06] LABS: Alanine Aminotransferase 21 U/L (13-56); Albumin 2.7 g/dL (3.4-5.0); Anion Gap 5 (5-15); Blood Urea Nitrogen 9 mg/dL (7-18); Calcium 8.7 mg/dL (8.5-10.1); Carbon Dioxide 30 mmol/L (21-32); Chloride 106 mmol/L (98-107); Glucose 161 mg/dL (74-106); Sodium 141 mmol/L (136-145)
[2020-05-15 12:11] LABS: Alkaline Phosphatase 187 U/L (45-117); Aspartate Aminotransferase 26 U/L (15-37); BUN/Creatinine Ratio 9.8; Bilirubin, Total 0.7 mg/dL (0.2-1.0); GFR African American 81 mL/min; GFR Non-African American 67 mL/min; Total Protein 5.7 g/dL (6.4-8.2)
[2020-05-15 12:12] LABS: INR 1.1 (0.9-1.15); Partial Thromboplastin Time 24.6 sec (23.0-31.2)
[2020-05-15 12:13] LABS: Blood Alcohol < 3.0 mg/dL (0-5)
[2020-05-15 12:15] LABS: Potassium 2.9 mmol/L (3.5-5.1)
[2020-05-15] MEDS ORDERED: POTASSIUM EFFERVESENT TAB 25 MEQ PO ONE (12:30)
[2020-05-15] MEDS ORDERED: LACTULOSE 20Gm/30ML SOLN PO ONE (13:30)
[2020-05-15 14:20] LABS: Band Neutrophils % (manual) 0; Eosinophils % (manual) 2 (0-7); Lymphocytes % (manual) 34 (10.0-50.0); Monocytes % (manual) 14 (0-12)
[2020-05-15] MEDS ORDERED: POTASSIUM CHL 20 Meq TABLET PO ONE (17:30)
[2020-05-15] MEDS ORDERED: ACETAMINOPHEN 500 MG TAB PO SCH ×2 (17:45→18:00)
[2020-05-15] MEDS ORDERED: ACETAMINOPHEN 500 MG TAB PO PRN (18:00)
--- NOTE | 2020-05-15 18:18 | NUR ---
MS admit from ER YONTODD arrived on unit. Admitted to tele/MS after SBAR received. Patient oriented to PHILL AYALA, primary RN, unit, room, bed, and unit policies regarding patient care and visiting hours. Patient weighed by bedscale and encouraged to call if they need something. All questions and concerns addressed, patient verbalized understanding.
[2020-05-15] MEDS: ONDANSETRON ODT 4 MG TAB PO SCH ×2 (18:35→23:39)
[2020-05-15] MEDS: MAGNESIUM SULFATE 1GM/100ML 100 ML IV SCH ×2 (18:35→20:06)
[2020-05-15] MEDS: LACTULOSE 20Gm/30ML SOLN PO SCH ×2 (18:35→21:08)
[2020-05-15] MEDS: POTASSIUM CHL 20 Meq TABLET PO SCH ×2 (18:36→23:40)
--- NOTE | 2020-05-15 19:30 | NUR ---
OPENING NOTE Received report from day shift RN. Patient is A&O X's 3 with no s/s of distress. Respirations are even and unlabored. Patient is asleep and fatigued but arouses to name and opens eyes spontaneously. Patient follows commands. Educated patient on POC and to use call light when in need of assistance. Set bed alarm for safety. Bed is in lowest/locked position with side rails up X's 2 and call light is within reach of patient. Will continue care.
[2020-05-15 21:58] VITALS: BP 100/52
[2020-05-16] MEDS: LACTULOSE 20Gm/30ML SOLN PO SCH ×5 (01:58→23:50)
[2020-05-16 05:00] VITALS: BP 125/55
[2020-05-16] MEDS: POTASSIUM CHL 20 Meq TABLET PO SCH ×4 (05:21→23:50)
[2020-05-16] MEDS: ONDANSETRON ODT 4 MG TAB PO SCH ×4 (05:21→23:50)
[2020-05-16 06:14] LABS: BUN/Creatinine Ratio 8.2; Calcium 8.9 mg/dL (8.5-10.1); Magnesium 2.5 mg/dL (1.6-2.6); Potassium 3.4 mmol/L (3.5-5.1)
--- NOTE | 2020-05-16 08:30 | NUR ---
Received pt resting in bed call light within reach, pt denies any pain or discomfort at this time.
[2020-05-16 09:00] VITALS: BP 114/49
[2020-05-16] MEDS ORDERED: FILGRASTIM (TBO) 300 MCG/0.5 ML SYRG SC ONE (09:30)
[2020-05-16] MEDS ORDERED: rifAXIMin 550 MG TAB PO ONE (12:45)
[2020-05-16 13:00] VITALS: BP 129/50
[2020-05-16] MEDS ORDERED: POTA-167 PO (14:58)
[2020-05-16] MEDS ORDERED: RIFA550T PO (14:58)
[2020-05-16] MEDS ORDERED: LACT10SO3 PO (14:58)
--- NOTE | 2020-05-16 14:58 | NUR ---
As per Dr. Smith have an ammonia level drawn and if the level is 75 or less ok to d/c pt.
--- NOTE | 2020-05-16 14:58 | NUR ---
Dr. Smith at unit to see pt.
[2020-05-16 16:32] VITALS: BP 129/50
[2020-05-16 17:00] VITALS: BP 131/82
--- NOTE | 2020-05-16 18:25 | NUR ---
woods laborer reported to have drawn the blood, and that pt was a hard stick.
--- NOTE | 2020-05-16 19:39 | NUR ---
Opening Shift Note Received report and assumed care of patient. Patient is awake and alert with intermittent confusion. No signs or symptoms of distress noted, patient currently denies pain. Instructed patient on plan of care and to call for assistance as needed. Will continue to monitor.
--- NOTE | 2020-05-16 19:42 | NUR ---
Paged Dr. Smith Paged Dr. Smith regarding patient's ammonia level. Connected with Dr. Pa. Reported to Dr. Pa that patient's ammonia level is 100 per last lab draw. Per note and report, patient is to be discharged if patient's ammonia level is 75 or less. Received verbal okay for patient's discharge to be held. Will continue to monitor.
[2020-05-16] MEDS: rifAXIMin 550 MG TAB PO SCH (21:50)
[2020-05-16 22:00] VITALS: BP 100/50
[2020-05-17 00:29] LABS: Alcohol, Urine < 3.0 mg/dL (0-10); Amphetamine Screen, Urine NEGATIVE (NEGATIVE); Barbiturate Scree,Urine NEGATIVE (NEGATIVE); Benzodiazephine Screen, Urine NEGATIVE (NEGATIVE); Cannabinoid Screen, Urine POSITIVE (NEGATIVE); Cocaine Screen, Urine NEGATIVE (NEGATIVE); Opiate Scree,Urine NEGATIVE (NEGATIVE); Phencyclidine Screen, Urine NEGATIVE (NEGATIVE)
[2020-05-17 00:30] LABS: Urine Bacteria FEW /hpf (None Seen); Urine Blood Negative /uL (Negative); Urine Specific Gravity 1.008 (1.001-1.035); Urine WBC 2 /hpf (0 - 5)
--- NOTE | 2020-05-17 03:50 | NUR ---
Pain Medication Administration Patient complaining of headache 05/26. Patient requesting for Tylenol to be administered. Educated patient regarding pain level and pain medications, patient verbalized understanding, continues to request Tylenol. Will administer pain medication per MD order. Will reassess pain level and will continue to monitor.
--- NOTE | 2020-05-17 04:50 | NUR ---
Pain Level Reassessment Patient asleep for pain level reassessment. Pain reassessed to be 0/10 using the Flacc pain scale. No signs or symptoms of distress noted. Will continue to monitor.
[2020-05-17 05:00] VITALS: BP 115/61
[2020-05-17 05:29] LABS: Basophils # (auto) 0 10 ^3/uL (0-0.2); Basophils % (auto) 0.2 % (0.0-2.0); Eosinophils # (auto) 0 10 ^3/uL (0-0.8); Eosinophils % (auto) 0.6 % (0.0-7.0); Hematocrit 36.3 % (36.0-46.0); Hemoglobin 12.4 g/dL (12.2-16.2); Lymphocytes # (auto) 0.6 10 ^3/uL (0.4-5.4); Lymphocytes % (auto) 7.2 % (10.0-50.0); Mean Corpuscular Hemoglobin 32.9 pg (28.0-32.0); Mean Corpuscular Hgb Conc. 34.2 g/dL (32.0-36.0); Mean Corpuscular Volume 96.2 fL (80.0-100.0); Monocytes # (auto) 0.5 10 ^3/uL (0-1.3); Monocytes % (auto) 5.7 % (0.0-12.0); Neutrophils # (auto) 6.9 10 ^3/uL (1.6-8.6); Neutrophils % (auto) 86.3 % (37.0-80.0); Platelet Count (auto) 35 10^3/uL (140-450); Red Blood Cells 3.78 10^6/uL (4.0-5.20); Red Cell Distribution Width 15.1 % (11.8-14.3)
[2020-05-17 05:52] LABS: Albumin 2.9 g/dL (3.4-5.0); BUN/Creatinine Ratio 11.2; Calcium 8.6 mg/dL (8.5-10.1); Potassium 3.9 mmol/L (3.5-5.1)
[2020-05-17 05:55] LABS: Bilirubin, Total 1.5 mg/dL (0.2-1.0)
[2020-05-17] MEDS: LACTULOSE 20Gm/30ML SOLN PO SCH (06:11)
[2020-05-17] MEDS: POTASSIUM CHL 20 Meq TABLET PO SCH (06:11)
[2020-05-17] MEDS: ONDANSETRON ODT 4 MG TAB PO SCH (06:11)
--- NOTE | 2020-05-17 08:00 | NUR ---
OPENING SHIFT NOTE ASSUMED CARE OF PATIENT AWAKE AND ALERT.NO S/S OF DISTRESS NOTED OR COMPLAINTS OF PAIN. PATIENT UPDATED ON POC FOR THE DAY AND ALL QUESTIONS ANSWERED. BED IS IN LOWEST, LOCKED POSITION WITH SIDE RAILS UP X2 AND CALL LIGHT WITHIN REACH. WILL CONTINUE TO MONITOR Q1H AND PRN.
[2020-05-17] MEDS: rifAXIMin 550 MG TAB PO SCH (10:20)
== END 2020-05-17 12:15 | disposition home or self-care (01) | DRG 279 ==
LOC: ER 10:21 → WEST WING 10:22
PROVIDERS: ADMIT Emergency Medicine; ATTEND Hospitalist
DX: K72.90 Hepatic failure, unspecified without coma (principal); E11.65 Type 2 diabetes mellitus with hyperglycemia; E44.0 Moderate protein-calorie malnutrition; E87.6 Hypokalemia; B19.20 Unspecified viral hepatitis C without hepatic coma; I50.32 Chronic diastolic (congestive) heart failure; K74.60 Unspecified cirrhosis of liver; Z68.41 Body mass index [BMI] 40.0-44.9, adult; Z88.8 Allergy status to other drugs, medicaments and biological substances; Z88.7 Allergy status to serum and vaccine; Z88.5 Allergy status to narcotic agent; Z90.710 Acquired absence of both cervix and uterus; Z90.89 Acquired absence of other organs; Z90.49 Acquired absence of other specified parts of digestive tract; Z80.9 Family history of malignant neoplasm, unspecified; Z83.3 Family history of diabetes mellitus; Z82.49 Family history of ischemic heart disease and other diseases of the circulatory system; Z87.891 Personal history of nicotine dependence; Z79.84 Long term (current) use of oral hypoglycemic drugs
CPT/HCPCS: 36415; 70450; 71045; 80048; 80053; 80307; 80320; 81001; 82140; 82962; 83735; 84484; 85007; 85025; 85027; 85610; 85730; 87081; 93005; 97163; 97530; G0378; J1447; Q0162

== ENCOUNTER 2020-08-02 09:21 | Emergency (ER) | payer MEDICAID ==
[~2020-08-02] VITALS: Ht 162.6 cm; Wt 90.7 kg
[~2020-08-02 09:21] MED LIST changes: -BUPR10DI TOP; -CLIN300C8 PO; -LEVO500T21 PO; -METH500T22 PO; -ONDA-101 PO; -SACC250C PO; -ZINC50TA20 PO
[2020-08-02] MEDS ORDERED: BACITRACIN TOP OINT 1 UD PKG TOP ONE (10:45)
[2020-08-02 11:08] VITALS: BP 148/82
== END 2020-08-02 12:32 | disposition home or self-care (01) ==
LOC: ER 09:21
DX: S51.811A Laceration without foreign body of right forearm, initial encounter (principal); M54.9 Dorsalgia, unspecified; J44.9 Chronic obstructive pulmonary disease, unspecified; M19.90 Unspecified osteoarthritis, unspecified site; E11.9 Type 2 diabetes mellitus without complications; Z90.49 Acquired absence of other specified parts of digestive tract; Z90.710 Acquired absence of both cervix and uterus; Z90.89 Acquired absence of other organs; Z79.899 Other long term (current) drug therapy; Z88.6 Allergy status to analgesic agent; Z88.8 Allergy status to other drugs, medicaments and biological substances; W01.0XXA Fall on same level from slipping, tripping and stumbling without subsequent striking against object, initial encounter; Y93.89 Activity, other specified; Y99.8 Other external cause status; Y92.89 Other specified places as the place of occurrence of the external cause
CPT/HCPCS: 70450; 72040; 72070; 72100

== ENCOUNTER 2020-09-19 11:36 | Emergency (ER) | payer MEDICAID ==
[~2020-09-19] VITALS: Ht 162.6 cm; Wt 90.7 kg
[2020-09-19 15:48] LABS: Basophils # (auto) 0 10 ^3/uL (0-0.2); Eosinophils # (auto) 0.1 10 ^3/uL (0-0.8); Lymphocytes # (auto) 0.8 10 ^3/uL (0.4-5.4); Mean Corpuscular Hemoglobin 34.6 pg (28.0-32.0); Monocytes # (auto) 0.3 10 ^3/uL (0-1.3); Neutrophils # (auto) 1.2 10 ^3/uL (1.6-8.6); Nucleated Red Blood Cells % 0.1 %; White Blood Cell 2.4 10^3/uL (4.4-10.8)
[2020-09-19 15:51] LABS: Basophils % (auto) 0.4 % (0.0-2.0); Eosinophils % (auto) 3.3 % (0.0-7.0); Hematocrit 35.6 % (36.0-46.0); Hemoglobin 12.7 g/dL (12.2-16.2); Lymphocytes % (auto) 33.5 % (10.0-50.0); Mean Corpuscular Hgb Conc. 35.6 g/dL (32.0-36.0); Mean Corpuscular Volume 97.3 fL (80.0-100.0); Monocytes % (auto) 11.8 % (0.0-12.0); Platelet Count (auto) 44 10^3/uL (140-450); Red Blood Cells 3.66 10^6/uL (4.0-5.20); Red Cell Distribution Width 15.1 % (11.8-14.3)
[2020-09-19 16:04] LABS: Calcium 9.2 mg/dL (8.5-10.1); Potassium 3.3 mmol/L (3.5-5.1)
[2020-09-19 16:08] LABS: BUN/Creatinine Ratio 6.9; Bilirubin, Total 0.9 mg/dL (0.2-1.0); Total Protein 6.5 g/dL (6.4-8.2)
[2020-09-19] MEDS ORDERED: traMADol HCL 50 MG TAB PO ONE (16:45)
[2020-09-19] MEDS ORDERED: BACITRACIN TOP OINT 1 UD PKG TOP ONE (16:45)
[2020-09-19 17:05] VITALS: BP 111/57
== END 2020-09-19 17:34 | disposition home or self-care (01) ==
LOC: ER 11:36
DX: S52.592A Other fractures of lower end of left radius, initial encounter for closed fracture (principal); J44.9 Chronic obstructive pulmonary disease, unspecified; E11.9 Type 2 diabetes mellitus without complications; K21.9 Gastro-esophageal reflux disease without esophagitis; Z90.49 Acquired absence of other specified parts of digestive tract; Z90.710 Acquired absence of both cervix and uterus; Z87.891 Personal history of nicotine dependence; W01.0XXA Fall on same level from slipping, tripping and stumbling without subsequent striking against object, initial encounter; Y93.89 Activity, other specified; Y92.89 Other specified places as the place of occurrence of the external cause; Y99.8 Other external cause status
CPT/HCPCS: 29125; 36415; 73110; 73130; 80053; 82140; 85025

== ENCOUNTER 2021-03-16 15:50 | Emergency (ER) | payer MEDICAID ==
[~2021-03-16] VITALS: Ht 162.6 cm; Wt 99.8 kg
[~2021-03-16 15:50] MED LIST changes: -VENL100T2 PO; +[UNRECOGNIZED DRUG - CODE] PO
[2021-03-16 16:26] LABS: Basophils # (auto) 0 10 ^3/uL (0-0.2); Hemoglobin 12.7 g/dL (12.2-16.2); Lymphocytes # (auto) 0.7 10 ^3/uL (0.4-5.4); Monocytes # (auto) 0.2 10 ^3/uL (0-1.3)
[2021-03-16 16:28] LABS: Basophils % (auto) 0.6 % (0.0-2.0); Eosinophils # (auto) 0 10 ^3/uL (0-0.8); Mean Corpuscular Hemoglobin 35.3 pg (28.0-32.0); Mean Corpuscular Hgb Conc. 36.2 g/dL (32.0-36.0); Mean Corpuscular Volume 97.5 fL (80.0-100.0); Monocytes % (auto) 12.6 % (0.0-12.0); Neutrophils % (auto) 49.8 % (37.0-80.0); Platelet Count (auto) 49 10^3/uL (140-450); Red Blood Cells 3.59 10^6/uL (4.0-5.20)
[2021-03-16] MEDS ORDERED: cefTRIAXone 1GM/50ML D5W 50 ML IV ONE (16:30)
[2021-03-16] MEDS ORDERED: CLINDAMYCIN 900MG IV 50 ML IV ONE (16:30)
[2021-03-16 16:58] LABS: Albumin 2.8 g/dL (3.4-5.0); Anion Gap 5 (5-15); Blood Urea Nitrogen 8 mg/dL (7-18); Calcium 9.4 mg/dL (8.5-10.1); Carbon Dioxide 27 mmol/L (21-32); Chloride 110 mmol/L (98-107); GFR African American 73 mL/min; GFR Non-African American 60 mL/min; Glucose 126 mg/dL (74-106); Potassium 3.8 mmol/L (3.5-5.1); Sodium 142 mmol/L (136-145)
[2021-03-16 17:03] LABS: Alanine Aminotransferase 32 U/L (13-56); Alkaline Phosphatase 242 U/L (45-117); Aspartate Aminotransferase 40 U/L (15-37); Bilirubin, Total 0.6 mg/dL (0.2-1.0); Total Protein 6.1 g/dL (6.4-8.2)
[2021-03-16 19:37] VITALS: BP 100/45
== END 2021-03-16 20:12 | disposition home or self-care (01) ==
LOC: ER 15:50
DX: L03.116 Cellulitis of left lower limb (principal); E44.0 Moderate protein-calorie malnutrition; K21.9 Gastro-esophageal reflux disease without esophagitis; E11.9 Type 2 diabetes mellitus without complications; Z68.32 Body mass index [BMI] 32.0-32.9, adult; Z90.49 Acquired absence of other specified parts of digestive tract; Z90.710 Acquired absence of both cervix and uterus; Z87.891 Personal history of nicotine dependence; Z88.6 Allergy status to analgesic agent
CPT/HCPCS: 36415; 71045; 80053; 83880; 84484; 85025; 85049; 93970; 96365; 96368; 99285; J0696; J3490

== ENCOUNTER 2021-05-06 09:44 | Emergency (ER) | payer MEDICAID ==
[~2021-05-06] VITALS: Ht 160 cm; Wt 90.7 kg
[~2021-05-06 09:44] MED LIST changes: +AMIT25TA12 PO; -AMIT25TA9 PO
[2021-05-06] MEDS ORDERED: IBUPROFEN 800 MG TAB PO ONE (13:30)
[2021-05-06 13:42] VITALS: BP 138/81
== END 2021-05-06 14:02 | disposition home or self-care (01) ==
LOC: ER 09:44
DX: S51.812A Laceration without foreign body of left forearm, initial encounter (principal); J44.9 Chronic obstructive pulmonary disease, unspecified; E11.9 Type 2 diabetes mellitus without complications; K21.9 Gastro-esophageal reflux disease without esophagitis; Z90.49 Acquired absence of other specified parts of digestive tract; Z90.710 Acquired absence of both cervix and uterus; Z90.89 Acquired absence of other organs; Z87.891 Personal history of nicotine dependence; Z79.899 Other long term (current) drug therapy; Z88.8 Allergy status to other drugs, medicaments and biological substances; Z88.5 Allergy status to narcotic agent; Z88.7 Allergy status to serum and vaccine; Z88.6 Allergy status to analgesic agent; Z91.048 Other nonmedicinal substance allergy status; W01.0XXA Fall on same level from slipping, tripping and stumbling without subsequent striking against object, initial encounter; Y93.89 Activity, other specified; Y92.89 Other specified places as the place of occurrence of the external cause; Y99.8 Other external cause status

== ENCOUNTER 2022-01-16 12:19 | Inpatient (IN) | payer MEDICAID ==
[~2022-01-16] VITALS: Ht 162.6 cm; Wt 108.0 kg
[2022-01-16 13:46] LABS: Basophils # (auto) 0 10 ^3/uL (0-0.2); Eosinophils # (auto) 0.1 10 ^3/uL (0-0.8); Hemoglobin 11.3 g/dL (12.2-16.2); Lymphocytes # (auto) 0.4 10 ^3/uL (0.4-5.4); Monocytes # (auto) 0.2 10 ^3/uL (0-1.3); Neutrophils # (auto) 1.3 10 ^3/uL (1.6-8.6)
[2022-01-16 13:49] LABS: Basophils % (auto) 0.2 % (0.0-2.0); Hematocrit 31.1 % (36.0-46.0); Lymphocytes % (auto) 19.7 % (10.0-50.0); Mean Corpuscular Hemoglobin 36.6 pg (28.0-32.0); Mean Corpuscular Hgb Conc. 36.2 g/dL (32.0-36.0); Mean Corpuscular Volume 101.1 fL (80.0-100.0); Monocytes % (auto) 9.1 % (0.0-12.0); Nucleated Red Blood Cells % 0.2 %; Red Blood Cells 3.08 10^6/uL (4.0-5.20); Red Cell Distribution Width 14.7 % (11.8-14.3)
[2022-01-16 14:04] LABS: White Blood Cell 1.9 10^3/uL (4.4-10.8)
[2022-01-16 14:06] LABS: Blood Alcohol < 3.0 mg/dL (0-5); Magnesium 1.9 mg/dL (1.6-2.6)
[2022-01-16 14:27] LABS: Albumin 2.8 g/dL (3.4-5.0); BUN/Creatinine Ratio 10.9; Calcium 9.2 mg/dL (8.5-10.1); Potassium 3.5 mmol/L (3.5-5.1)
[2022-01-16 14:30] LABS: Bilirubin, Total 1.4 mg/dL (0.2-1.0); Total Protein 5.8 g/dL (6.4-8.2)
[2022-01-16] MEDS ORDERED: LACTULOSE 20Gm/30ML SOLN PO ONE (15:00)
[2022-01-16] MEDS ORDERED: ACETAMINOPHEN 325 MG TAB PO PRN (16:00)
[2022-01-16] MEDS ORDERED: hydrALAZINE HCL 20 MG/ML VL IV PRN (16:00)
[2022-01-16] MEDS ORDERED: DOCUSATE SOD 100 MG CAP PO PRN (16:00)
[2022-01-16] MEDS ORDERED: NITROGLYCERIN 0.4 MG SL TAB SL PRN (16:00)
[2022-01-16] MEDS ORDERED: ONDANSETRON HCL 4 MG/2 ML VIAL IV PRN (16:00)
[2022-01-16] MEDS: LACTULOSE 20Gm/30ML SOLN PO SCH ×2 (18:35→23:46)
[2022-01-16 21:00] VITALS: BP 133/73
[2022-01-17] VITALS (8 sets, daily range): BP systolic 95–132; BP diastolic 52–63
[2022-01-17] MEDS ORDERED: VENL150C3 PO (03:33)
[2022-01-17] MEDS ORDERED: ROPI0.5T18 PO (03:33)
[2022-01-17] MEDS ORDERED: FURO40TA4 PO (03:33)
[2022-01-17] MEDS ORDERED: SPIR25TA8 PO (03:33)
[2022-01-17] MEDS ORDERED: AMIT1TAB41 PO (03:33)
[2022-01-17] MEDS ORDERED: MELO1TAB56 PO (03:33)
[2022-01-17] MEDS ORDERED: OME20T PO (03:33)
[2022-01-17] MEDS ORDERED: BUSP5TAB78 PO (03:33)
[2022-01-17] MEDS ORDERED: LACT10PA2 PO (03:33)
[2022-01-17] MEDS ORDERED: LAMO200T34 PO (03:33)
[2022-01-17] MEDS ORDERED: CHOLPOW4 PO (03:33)
[2022-01-17] MEDS ORDERED: TOPI100T68 PO (03:33)
[2022-01-17] MEDS ORDERED: ALBUAER3 IN (03:33)
[2022-01-17] MEDS ORDERED: CARV6.2551 PO (03:33)
[2022-01-17] MEDS ORDERED: ZINC50TA20 PO (03:33)
[2022-01-17] MEDS ORDERED: POTA10TA51 PO (03:33)
[2022-01-17] MEDS ORDERED: CHOL20007 OR (03:33)
[2022-01-17] MEDS ORDERED: FLUT100M IN (03:33)
[2022-01-17] MEDS ORDERED: RIFA300C3 PO (03:33)
[2022-01-17] MEDS ORDERED: BUPR20DI TD (03:33)
[2022-01-17] MEDS ORDERED: ONDA-155 PO (03:33)
[2022-01-17] MEDS ORDERED: RIFA550T PO (03:33)
[2022-01-17] MEDS: LACTULOSE 20Gm/30ML SOLN PO SCH ×4 (05:23→23:59)
[2022-01-17 06:16] LABS: Hemoglobin 11.6 g/dL (12.2-16.2)
[2022-01-17 06:21] LABS: Hematocrit 32.1 % (36.0-46.0); Mean Corpuscular Hemoglobin 36.4 pg (28.0-32.0); Mean Corpuscular Hgb Conc. 36.1 g/dL (32.0-36.0); Mean Corpuscular Volume 100.7 fL (80.0-100.0); Red Blood Cells 3.18 10^6/uL (4.0-5.20); Red Cell Distribution Width 14.6 % (11.8-14.3)
[2022-01-17 06:30] LABS: BUN/Creatinine Ratio 11.6; Calcium 8.8 mg/dL (8.5-10.1); Potassium 3.4 mmol/L (3.5-5.1)
[2022-01-17 06:48] LABS: White Blood Cell 1.2 10^3/uL (4.4-10.8)
[2022-01-17 06:49] LABS: Band Neutrophils % (manual) 0; Basophils % (manual) 0 (0.0-2.0); Blast Cells 0; Eosinophils % (manual) 0 (0-7); Metamyelocytes % 0; Myelocytes % 0; Promyelocytes % 0; Reactive Lymphocytes 0
[2022-01-17 08:27] LABS: Lymphocytes % (manual) 42 (10.0-50.0)
[2022-01-17 08:28] LABS: Monocytes % (manual) 19 (0-12)
[2022-01-17] MEDS ORDERED: POTASSIUM EFFERVESENT TAB 25 MEQ PO ONE (09:00)
[2022-01-17] MEDS ORDERED: FUROSEMIDE 20 MG TAB PO SCH (10:00)
[2022-01-17] MEDS ORDERED: PANTOPRAZOLE 40 MG TAB PO SCH (10:00)
[2022-01-17] MEDS ORDERED: SPIRONOLACTONE 25 MG TAB PO SCH (10:00)
[2022-01-17 13:57] LABS: Urine Bacteria FEW /hpf (None Seen); Urine Blood Negative /uL (Negative); Urine Budding Yeast MODERATE /hpf (None Seen); Urine Specific Gravity 1.015 (1.001-1.035); Urine WBC 4 /hpf (0 - 5)
[2022-01-17 14:12] LABS: Amphetamine Screen, Urine NEGATIVE (NEGATIVE); Barbiturate Scree,Urine POSITIVE (NEGATIVE); Benzodiazephine Screen, Urine NEGATIVE (NEGATIVE); Cannabinoid Screen, Urine POSITIVE (NEGATIVE); Cocaine Screen, Urine NEGATIVE (NEGATIVE); Opiate Scree,Urine NEGATIVE (NEGATIVE); Phencyclidine Screen, Urine NEGATIVE (NEGATIVE)
[2022-01-17] MEDS ORDERED: LACT10SO70 PO (17:14)
[2022-01-17] MEDS ORDERED: FUR20T PO (17:14)
[2022-01-18 05:20] VITALS: BP 154/67
[2022-01-18] MEDS: LACTULOSE 20Gm/30ML SOLN PO SCH (05:49)
[2022-01-18 06:09] LABS: BUN/Creatinine Ratio 10.5; Calcium 8.7 mg/dL (8.5-10.1); Potassium 3.4 mmol/L (3.5-5.1)
[2022-01-18 07:21] LABS: Hemoglobin 11.4 g/dL (12.2-16.2)
[2022-01-18 07:23] LABS: Hematocrit 31.8 % (36.0-46.0); Mean Corpuscular Hemoglobin 35.8 pg (28.0-32.0); Mean Corpuscular Hgb Conc. 35.8 g/dL (32.0-36.0); Mean Corpuscular Volume 99.9 fL (80.0-100.0); Red Blood Cells 3.19 10^6/uL (4.0-5.20); Red Cell Distribution Width 14.1 % (11.8-14.3)
[2022-01-18 07:35] LABS: White Blood Cell 1.1 10^3/uL (4.4-10.8)
[2022-01-18 07:37] LABS: Basophils % (manual) 0 (0.0-2.0); Blast Cells 0; Metamyelocytes % 0; Myelocytes % 0; Promyelocytes % 0; Reactive Lymphocytes 0
[2022-01-18 10:06] LABS: Band Neutrophils % (manual) 17; Eosinophils % (manual) 4 (0-7); Lymphocytes % (manual) 29 (10.0-50.0); Monocytes % (manual) 27 (0-12)
== END 2022-01-18 07:20 | disposition home health service (06) | DRG 279 ==
LOC: ER 12:19 → TELE 15:49 → TELE-WESTW 20:29
PROVIDERS: ADMIT Internal Medicine; ATTEND Internal Medicine
DX: K72.90 Hepatic failure, unspecified without coma (principal); G92.8 Other toxic encephalopathy; D61.818 Other pancytopenia; E11.22 Type 2 diabetes mellitus with diabetic chronic kidney disease; K74.60 Unspecified cirrhosis of liver; N18.2 Chronic kidney disease, stage 2 (mild); K21.9 Gastro-esophageal reflux disease without esophagitis; M19.90 Unspecified osteoarthritis, unspecified site; F31.9 Bipolar disorder, unspecified; Z20.822 Contact with and (suspected) exposure to COVID-19; R53.81 Other malaise; F41.9 Anxiety disorder, unspecified; R29.6 Repeated falls; M54.50 Low back pain, unspecified; J44.9 Chronic obstructive pulmonary disease, unspecified; Z80.0 Family history of malignant neoplasm of digestive organs; Z80.1 Family history of malignant neoplasm of trachea, bronchus and lung; Z81.8 Family history of other mental and behavioral disorders; Z82.49 Family history of ischemic heart disease and other diseases of the circulatory system; Z83.3 Family history of diabetes mellitus; Z87.442 Personal history of urinary calculi; Z87.891 Personal history of nicotine dependence; Z90.710 Acquired absence of both cervix and uterus; Z91.14 Patient's other noncompliance with medication regimen; Z88.6 Allergy status to analgesic agent; Z88.7 Allergy status to serum and vaccine; Z88.8 Allergy status to other drugs, medicaments and biological substances; Z91.09 Other allergy status, other than to drugs and biological substances; Z90.49 Acquired absence of other specified parts of digestive tract
CPT/HCPCS: 36415; 70450; 70551; 71045; 72170; 80048; 80053; 80307; 80320; 81001; 82140; 83735; 83880; 84439; 84443; 84484; 85007; 85025; 85027; 93005; 97163; G0378

== ENCOUNTER 2022-10-26 15:11 | Emergency (ER) | payer MEDICAID ==
[~2022-10-26] VITALS: Ht 162.6 cm; Wt 95.4 kg
[~2022-10-26 15:11] MED LIST changes: +ALBUAER3 IN; +AMIT1TAB41 PO; -AMIT25TA12 PO; +BUPR20DI TD; +BUSP5TAB78 PO; +CARV6.2551 PO; -CHOL100079 OR; +CHOL20007 OR; +CHOLPOW4 PO; +FLUT100M IN; +FUR20T PO; -FURO40TA4 PO; -LACT10SO3 PO; +LACT10SO70 PO; +MELO1TAB56 PO; +OME20T PO; +ONDA-155 PO; +TOPI100T68 PO; +VENL150C3 PO; +ZINC50TA20 PO; -[UNRECOGNIZED DRUG - CODE] PO
[2022-10-26] MEDS: traMADol HCL 50 MG TAB PO ONE ×2 (16:44→17:54)
[2022-10-26 20:27] LABS: Urine Bacteria MANY /hpf (None Seen); Urine Blood 3+ /uL (Negative); Urine Budding Yeast FEW /hpf (None Seen); Urine Hyaline Cast FEW /lpf (0 - 2); Urine Specific Gravity 1.003 (1.001-1.035); Urine WBC 115 /hpf (0 - 5)
[2022-10-26] MEDS ORDERED: levoFLOXacin 250 MG TAB PO ONE (20:45)
[2022-10-26] MEDS ORDERED: oxyCODONE ER 10 MG TAB PO ONE (21:00)
[2022-10-26] MEDS ORDERED: OXYC-629 PO (22:05)
[2022-10-26] MEDS ORDERED: LEVO500T31 PO (22:05)
[2022-10-26 23:03] VITALS: BP 149/62
== END 2022-10-26 23:06 | disposition home or self-care (01) ==
LOC: ER 15:13
DX: N30.00 Acute cystitis without hematuria (principal); J44.9 Chronic obstructive pulmonary disease, unspecified; E11.9 Type 2 diabetes mellitus without complications; K21.9 Gastro-esophageal reflux disease without esophagitis; Z90.49 Acquired absence of other specified parts of digestive tract; Z90.89 Acquired absence of other organs; Z90.710 Acquired absence of both cervix and uterus; Z87.891 Personal history of nicotine dependence; Z79.899 Other long term (current) drug therapy; Z88.6 Allergy status to analgesic agent; Z88.5 Allergy status to narcotic agent; Z88.8 Allergy status to other drugs, medicaments and biological substances
CPT/HCPCS: 74176; 81001

== ENCOUNTER 2022-11-09 12:36 | Emergency (ER) | payer MEDICAID ==
[~2022-11-09] VITALS: Ht 162.6 cm; Wt 95.5 kg
[~2022-11-09 12:36] MED LIST changes: +LEVO500T31 PO; +OXYC-629 PO
[2022-11-09 13:45] VITALS: BP 107/41
[2022-11-09] MEDS ORDERED: HYDROcodone-ACET 10/325MG TAB PO ONE (14:15)
[2022-11-09] MEDS ORDERED: HYDR-4798 PO (15:29)
== END 2022-11-09 15:48 | disposition home or self-care (01) ==
LOC: ER 12:36
DX: S23.41XA Sprain of ribs, initial encounter (principal); F19.20 Other psychoactive substance dependence, uncomplicated; F41.9 Anxiety disorder, unspecified; J44.9 Chronic obstructive pulmonary disease, unspecified; F32.9 Major depressive disorder, single episode, unspecified; E11.9 Type 2 diabetes mellitus without complications; K21.9 Gastro-esophageal reflux disease without esophagitis; Z88.6 Allergy status to analgesic agent; Z88.5 Allergy status to narcotic agent; Z88.8 Allergy status to other drugs, medicaments and biological substances; Z79.899 Other long term (current) drug therapy; Z90.49 Acquired absence of other specified parts of digestive tract; Z90.710 Acquired absence of both cervix and uterus; Z90.89 Acquired absence of other organs; Z98.890 Other specified postprocedural states; Z86.73 Personal history of transient ischemic attack (TIA), and cerebral infarction without residual deficits; W20.8XXA Other cause of strike by thrown, projected or falling object, initial encounter; Y93.89 Activity, other specified; Y92.89 Other specified places as the place of occurrence of the external cause; Y99.8 Other external cause status
CPT/HCPCS: 71101

== ENCOUNTER 2023-01-05 11:07 | Emergency (ER) | payer MEDICAID ==
[~2023-01-05 11:07] MED LIST changes: +HYDR-4798 PO
[2023-01-05 13:05] VITALS: BP 95/76
[2023-01-05 14:01] LABS: Basophils # (auto) 0 10 ^3/uL (0-0.2); Basophils % (auto) 0.3 % (0.0-2.0); Eosinophils # (auto) 0.1 10 ^3/uL (0-0.8); Hemoglobin 14.1 g/dL (12.2-16.2); Mean Corpuscular Hemoglobin 34.1 pg (28.0-32.0); Monocytes # (auto) 0.5 10 ^3/uL (0-1.3); Neutrophils # (auto) 2.1 10 ^3/uL (1.6-8.6); Nucleated Red Blood Cells % 0.3 %; Red Cell Distribution Width 14.6 % (11.8-14.3)
[2023-01-05 14:03] LABS: Eosinophils % (auto) 3.8 % (0.0-7.0); Hematocrit 40.7 % (36.0-46.0); Lymphocytes % (auto) 27.1 % (10.0-50.0); Mean Corpuscular Hgb Conc. 34.6 g/dL (32.0-36.0); Mean Corpuscular Volume 98.5 fL (80.0-100.0); Monocytes % (auto) 13.8 % (0.0-12.0); Red Blood Cells 4.13 10^6/uL (4.0-5.20); White Blood Cell 3.7 10^3/uL (4.4-10.8)
[2023-01-05] MEDS ORDERED: KETOROLAC TROMETH 60MG/2ML VIAL IM ONE (15:30)
[2023-01-05 15:48] LABS: Calcium 9.9 mg/dL (8.5-10.1); Potassium 3.4 mmol/L (3.5-5.1)
[2023-01-05 15:52] LABS: BUN/Creatinine Ratio 6.9 (10.0-20.0); Bilirubin, Total 2.1 mg/dL (0.2-1.0); Total Protein 6.6 g/dL (6.4-8.2); Uric Acid 5.3 mg/dL (2.6-6.0)
[2023-01-05] MEDS ORDERED: CEPH-510 PO (15:54)
[2023-01-05] MEDS ORDERED: ACET-1080 PO (15:54)
[2023-01-05 17:16] LABS: Lactic Acid w/Reflex 2.8 mmol/L (0.4-2.0)
== END 2023-01-05 15:58 | disposition home or self-care (01) ==
LOC: ER 11:07
DX: S80.01XA Contusion of right knee, initial encounter (principal); I87.8 Other specified disorders of veins; M79.89 Other specified soft tissue disorders; J44.9 Chronic obstructive pulmonary disease, unspecified; E11.9 Type 2 diabetes mellitus without complications; K21.9 Gastro-esophageal reflux disease without esophagitis; Z90.49 Acquired absence of other specified parts of digestive tract; Z90.710 Acquired absence of both cervix and uterus; Z98.890 Other specified postprocedural states; Z88.6 Allergy status to analgesic agent; Z88.8 Allergy status to other drugs, medicaments and biological substances; W19.XXXA Unspecified fall, initial encounter; Y93.89 Activity, other specified; Y92.89 Other specified places as the place of occurrence of the external cause; Y99.8 Other external cause status
CPT/HCPCS: 36415; 73562; 80053; 83605; 84550; 85025; 87040; 93971; 96372; 99285; J1885

== ENCOUNTER 2023-02-21 18:25 | Inpatient (IN) | payer MEDICAID ==
[~2023-02-21] VITALS: Ht 162.6 cm; Wt 89.0 kg
[~2023-02-21 18:25] MED LIST changes: +ACET-1080 PO; +AMIT100T6 PO; -AMIT1TAB41 PO; +CEPH-510 PO; +MELO-335 PO; -MELO1TAB56 PO; -POTA-167 PO; +POTA-211 PO; -ROPI0.5T18 PO; +ROPI0.5T4 PO
[2023-02-21 21:50] LABS: Basophils # (auto) 0 10 ^3/uL (0-0.2); Basophils % (auto) 0.3 % (0.0-2.0); Eosinophils # (auto) 0.1 10 ^3/uL (0-0.8); Hemoglobin 12.6 g/dL (12.2-16.2); Monocytes # (auto) 0.5 10 ^3/uL (0-1.3); Red Cell Distribution Width 14.2 % (11.8-14.3)
[2023-02-21 21:54] LABS: Eosinophils % (auto) 3.4 % (0.0-7.0); Hematocrit 35.5 % (36.0-46.0); Lymphocytes % (auto) 31.2 % (10.0-50.0); Mean Corpuscular Hgb Conc. 35.5 g/dL (32.0-36.0); Mean Corpuscular Volume 98.5 fL (80.0-100.0); Monocytes % (auto) 16.3 % (0.0-12.0); Neutrophils # (auto) 1.5 10 ^3/uL (1.6-8.6); Neutrophils % (auto) 48.8 % (37.0-80.0); Nucleated Red Blood Cells % 0.2 %; Red Blood Cells 3.61 10^6/uL (4.0-5.20); White Blood Cell 3.1 10^3/uL (4.4-10.8)
[2023-02-21 22:07] LABS: Albumin 3.2 g/dL (3.4-5.0); Calcium 9.2 mg/dL (8.5-10.1)
[2023-02-21 22:10] LABS: BUN/Creatinine Ratio 8.3 (10.0-20.0); Bilirubin, Total 1.8 mg/dL (0.2-1.0); Total Protein 6.9 g/dL (6.4-8.2)
[2023-02-21 22:21] LABS: INR 1.11 (0.9-1.15)
[2023-02-21 22:23] LABS: Potassium 2.9 mmol/L (3.5-5.1)
[2023-02-21] MEDS ORDERED: POTASSIUM EFFERVESENT TAB 25 MEQ PO ONE (23:45)
[2023-02-22] MEDS ORDERED: DOCUSATE SOD 100 MG CAP PO PRN (01:30)
[2023-02-22] MEDS ORDERED: ACETAMINOPHEN 325 MG TAB PO PRN (01:30)
[2023-02-22] MEDS ORDERED: DEXTROSE (50%) 50ML SYRG IV PRN (01:30)
[2023-02-22] MEDS ORDERED: ONDANSETRON HCL 4 MG/2 ML VIAL IV PRN (01:30)
[2023-02-22] MEDS: HYDROcodone-ACET 5/325MG TAB PO PRN ×2 (02:51→19:15)
[2023-02-22] MEDS ORDERED: NITROGLYCERIN 0.4 MG SL TAB SL PRN (05:45)
[2023-02-22 06:56] LABS: White Blood Cell 2.7 10^3/uL (4.4-10.8)
[2023-02-22 06:59] LABS: Hematocrit 35.1 % (36.0-46.0); Hemoglobin 12.5 g/dL (12.2-16.2); Mean Corpuscular Hemoglobin 35.1 pg (28.0-32.0); Mean Corpuscular Hgb Conc. 35.5 g/dL (32.0-36.0); Mean Corpuscular Volume 98.9 fL (80.0-100.0); Red Blood Cells 3.55 10^6/uL (4.0-5.20)
[2023-02-22 07:08] LABS: Band Neutrophils % (manual) 0; Basophils % (manual) 0 (0.0-2.0); Blast Cells 0; Metamyelocytes % 0; Myelocytes % 0; Promyelocytes % 0; Reactive Lymphocytes 0
[2023-02-22 08:12] LABS: Eosinophils % (manual) 5 (0-7); Lymphocytes % (manual) 38 (10.0-50.0); Monocytes % (manual) 12 (0-12)
[2023-02-22 08:29] LABS: Potassium 3.2 mmol/L (3.5-5.1)
[2023-02-22 08:32] LABS: BUN/Creatinine Ratio 9.4 (10.0-20.0); Bilirubin, Total 1.7 mg/dL (0.2-1.0); Total Protein 6.2 g/dL (6.4-8.2)
[2023-02-22] MEDS: ACCU-CHEK COMFORT CURVE STRIP VI SCH ×4 (09:17→23:21)
[2023-02-22] MEDS: InsuLIN REG 1unit/0.01ml Soln (100units/ml) SC SCH ×4 (09:37→22:00)
[2023-02-22] MEDS: SODIUM CHLORIDE 0.9% 1,000 ML IV SCH ×2 (09:52→18:10)
[2023-02-22] MEDS: FAMOTIDINE (10MG/ML) 2ML VL IV SCH ×2 (10:00→23:21)
[2023-02-22 23:14] VITALS: BP 159/71
[2023-02-23] MEDS ORDERED: RIFA1INJ2 IV (02:02)
[2023-02-23] MEDS ORDERED: FURO1TAB31 PO (02:02)
[2023-02-23] MEDS ORDERED: SPIR25TA PO (02:02)
[2023-02-23] MEDS: HYDROcodone-ACET 5/325MG TAB PO PRN ×2 (04:00→10:15)
[2023-02-23 05:00] VITALS: BP 148/69
[2023-02-23] MEDS: InsuLIN REG 1unit/0.01ml Soln (100units/ml) SC SCH ×4 (06:07→22:19)
[2023-02-23] MEDS: ACCU-CHEK COMFORT CURVE STRIP VI SCH ×4 (06:07→22:17)
[2023-02-23 06:55] LABS: Hemoglobin 11.9 g/dL (12.2-16.2)
[2023-02-23 06:58] LABS: Hematocrit 33.5 % (36.0-46.0); Mean Corpuscular Hemoglobin 34.7 pg (28.0-32.0); Mean Corpuscular Hgb Conc. 35.5 g/dL (32.0-36.0); Mean Corpuscular Volume 97.8 fL (80.0-100.0); Red Blood Cells 3.43 10^6/uL (4.0-5.20); Red Cell Distribution Width 13.9 % (11.8-14.3)
[2023-02-23 07:14] LABS: Albumin 2.6 g/dL (3.4-5.0); Calcium 9.2 mg/dL (8.5-10.1); White Blood Cell 1.3 10^3/uL (4.4-10.8)
[2023-02-23 07:15] LABS: Band Neutrophils % (manual) 0; Basophils % (manual) 0 (0.0-2.0); Blast Cells 0; Metamyelocytes % 0; Myelocytes % 0; Promyelocytes % 0; Reactive Lymphocytes 0
[2023-02-23 07:19] LABS: BUN/Creatinine Ratio 13.3 (10.0-20.0); Bilirubin, Total 1.2 mg/dL (0.2-1.0); Total Protein 5.6 g/dL (6.4-8.2)
[2023-02-23 08:53] VITALS: BP 149/60
[2023-02-23] MEDS: FAMOTIDINE (10MG/ML) 2ML VL IV SCH ×2 (10:29→22:08)
[2023-02-23] MEDS: SODIUM CHLORIDE 0.9% 1,000 ML IV SCH ×2 (10:50→23:00)
[2023-02-23 12:12] LABS: Eosinophils % (manual) 6 (0-7); Lymphocytes % (manual) 44 (10.0-50.0); Monocytes % (manual) 13 (0-12)
[2023-02-23 13:00] VITALS: BP 145/80
[2023-02-23 17:00] VITALS: BP 144/89
[2023-02-23 22:37] VITALS: BP 140/60
[2023-02-23 23:58] LABS: Urine Bacteria FEW /hpf (None Seen); Urine Blood Negative /uL (Negative); Urine Mucus FEW (None Seen); Urine WBC 5 /hpf (0 - 5)
[2023-02-24 05:10] VITALS: BP 155/77
[2023-02-24] MEDS: HYDROcodone-ACET 5/325MG TAB PO PRN ×3 (05:52→23:11)
[2023-02-24] MEDS: InsuLIN REG 1unit/0.01ml Soln (100units/ml) SC SCH ×4 (05:54→22:00)
[2023-02-24] MEDS: ACCU-CHEK COMFORT CURVE STRIP VI SCH ×4 (05:54→23:07)
[2023-02-24 06:29] LABS: Hemoglobin 11.6 g/dL (12.2-16.2); Red Cell Distribution Width 13.8 % (11.8-14.3)
[2023-02-24 06:31] LABS: Hematocrit 33.2 % (36.0-46.0); Mean Corpuscular Hemoglobin 34.7 pg (28.0-32.0); Mean Corpuscular Volume 99.1 fL (80.0-100.0); Red Blood Cells 3.35 10^6/uL (4.0-5.20)
[2023-02-24 06:42] LABS: Albumin 2.7 g/dL (3.4-5.0); Calcium 9.5 mg/dL (8.5-10.1); Potassium 3.5 mmol/L (3.5-5.1)
[2023-02-24 06:48] LABS: BUN/Creatinine Ratio 12.1 (10.0-20.0); Bilirubin, Total 1.3 mg/dL (0.2-1.0); Total Protein 5.8 g/dL (6.4-8.2)
[2023-02-24 07:37] LABS: Basophils % (manual) 0 (0.0-2.0); Blast Cells 0; Metamyelocytes % 0; Myelocytes % 0; Promyelocytes % 0; Reactive Lymphocytes 0; White Blood Cell 1.2 10^3/uL (4.4-10.8)
[2023-02-24 09:00] VITALS: BP 142/79
[2023-02-24] MEDS: PANTOPRAZOLE 40 MG TAB PO SCH (09:47)
[2023-02-24 13:00] VITALS: BP 154/68
[2023-02-24 14:48] LABS: Band Neutrophils % (manual) 1; Eosinophils % (manual) 2 (0-7); Lymphocytes % (manual) 31 (10.0-50.0); Monocytes % (manual) 15 (0-12)
[2023-02-24] MEDS ORDERED: ONDANSETRON HCL 4 MG/2 ML VIAL IV PRN (15:30)
[2023-02-24] MEDS ORDERED: LACTULOSE 20Gm/30ML SOLN PO SCH (16:37)
[2023-02-24] MEDS: SPIRONOLACTONE 25 MG TAB PO SCH (16:44)
[2023-02-24] MEDS: VENLAFAXINE HCL 37.5mg XR cap PO SCH (16:46)
[2023-02-24] MEDS: busPIRone HCL 10 MG TAB PO SCH ×2 (16:47→23:12)
[2023-02-24] MEDS: CYANOCOBALAMIN 500 MCG TAB PO SCH (16:51)
[2023-02-24] MEDS: FUROSEMIDE 40 MG TAB PO SCH (16:52)
[2023-02-24] MEDS: CHOLECALCIFEROL (VITD3) 2,000 UNIT CAP/TAB PO SCH (16:53)
[2023-02-24] MEDS: CHOLESTYRAMINE 4 GM POWDER PO SCH ×2 (16:54→23:16)
[2023-02-24] MEDS: POTASSIUM EFFERVESENT TAB 25 MEQ PO SCH ×2 (16:54→23:06)
[2023-02-24 17:00] VITALS: BP 135/93
[2023-02-24] MEDS ORDERED: CARVEDILOL 3.125 MG TAB PO ONE (17:00)
[2023-02-24] MEDS: LACTULOSE 20Gm/30ML SOLN PO SCH ×2 (17:06→23:09)
[2023-02-24] MEDS: SODIUM CHLORIDE 0.9% 1,000 ML IV SCH (20:10)
[2023-02-24 22:00] VITALS: BP 100/34
[2023-02-24] MEDS ORDERED: AMITRIPTYLINE HCL 25 MG TAB PO SCH (22:00)
[2023-02-24] MEDS: ZINC SULFATE 220mg CAP or TAB PO SCH (23:12)
[2023-02-24] MEDS: rifAMPin 300 MG CAP PO SCH (23:15)
[2023-02-25 05:00] VITALS: BP 118/56
[2023-02-25 06:09] LABS: Mean Corpuscular Hemoglobin 34.7 pg (28.0-32.0); Mean Corpuscular Hgb Conc. 35.2 g/dL (32.0-36.0); Mean Corpuscular Volume 98.6 fL (80.0-100.0); Red Blood Cells 3.45 10^6/uL (4.0-5.20)
[2023-02-25 06:30] LABS: White Blood Cell 1.8 10^3/uL (4.4-10.8)
[2023-02-25 06:31] LABS: Basophils % (manual) 0 (0.0-2.0); Blast Cells 0; Metamyelocytes % 0; Myelocytes % 0; Promyelocytes % 0; Reactive Lymphocytes 0
[2023-02-25] MEDS: HYDROcodone-ACET 5/325MG TAB PO PRN (06:35)
[2023-02-25 06:39] LABS: BUN/Creatinine Ratio 12.2 (10.0-20.0); Calcium 9.8 mg/dL (8.5-10.1); Magnesium 1.9 mg/dL (1.6-2.6); Potassium 4.1 mmol/L (3.5-5.1)
[2023-02-25] MEDS: ACCU-CHEK COMFORT CURVE STRIP VI SCH ×3 (06:47→17:00)
[2023-02-25] MEDS: InsuLIN REG 1unit/0.01ml Soln (100units/ml) SC SCH ×3 (06:48→17:00)
[2023-02-25 08:49] LABS: Band Neutrophils % (manual) 1; Eosinophils % (manual) 7 (0-7); Lymphocytes % (manual) 33 (10.0-50.0); Monocytes % (manual) 16 (0-12)
[2023-02-25 09:00] VITALS: BP 150/87
[2023-02-25] MEDS: SPIRONOLACTONE 25 MG TAB PO SCH (09:11)
[2023-02-25] MEDS: FUROSEMIDE 40 MG TAB PO SCH (09:11)
[2023-02-25] MEDS: busPIRone HCL 10 MG TAB PO SCH (09:11)
[2023-02-25] MEDS: CYANOCOBALAMIN 500 MCG TAB PO SCH (10:00)
[2023-02-25] MEDS: POTASSIUM EFFERVESENT TAB 25 MEQ PO SCH (10:00)
[2023-02-25] MEDS: rifAMPin 300 MG CAP PO SCH (10:00)
[2023-02-25] MEDS: CHOLECALCIFEROL (VITD3) 2,000 UNIT CAP/TAB PO SCH (10:00)
[2023-02-25] MEDS: ZINC SULFATE 220mg CAP or TAB PO SCH (10:00)
[2023-02-25] MEDS: LACTULOSE 20Gm/30ML SOLN PO SCH (10:00)
[2023-02-25] MEDS: CHOLESTYRAMINE 4 GM POWDER PO SCH (10:00)
[2023-02-25] MEDS: VENLAFAXINE HCL 37.5mg XR cap PO SCH (10:00)
[2023-02-25] MEDS: PANTOPRAZOLE 40 MG TAB PO SCH (10:00)
[2023-02-25] MEDS ORDERED: LIDOCAINE 2%HCL (LOCAL ANESTH.) INJ 10ml MDV ONE (10:32)
[2023-02-25] MEDS ORDERED: MIDAZOLAM HCL 2MG/2ML 2ml VIAL (1mg/ml) IV ONE (12:45)
[2023-02-25] MEDS ORDERED: fentaNYL CITRATE 100 MCG/2 ML VL IV ONE (12:45)
[2023-02-25] MEDS: SODIUM CHLORIDE 0.9% 1,000 ML IV SCH (12:50)
[2023-02-25 13:00] VITALS: BP 130/67
[2023-02-25 17:10] VITALS: BP 145/57
== END 2023-02-25 19:00 | disposition home or self-care (01) | DRG 384 ==
LOC: ER 18:30 → TELE 02-22 05:47 → TELE-WESTW 02-22 21:53
PROVIDERS: ADMIT Nurse Practitioner Family; ATTEND Internal Medicine
PROC: 07DR3ZX Extraction of Iliac Bone Marrow, Percutaneous Approach, Diagnostic (ICD-10-PCS; principal; 2023-02-25)
DX: S80.01XA Contusion of right knee, initial encounter (principal); D69.6 Thrombocytopenia, unspecified; K74.60 Unspecified cirrhosis of liver; E87.6 Hypokalemia; D72.819 Decreased white blood cell count, unspecified; E11.9 Type 2 diabetes mellitus without complications; F11.20 Opioid dependence, uncomplicated; F32.A Depression, unspecified; F41.9 Anxiety disorder, unspecified; M25.512 Pain in left shoulder; I10 Essential (primary) hypertension; K21.9 Gastro-esophageal reflux disease without esophagitis; M54.9 Dorsalgia, unspecified; G89.29 Other chronic pain; S80.02XA Contusion of left knee, initial encounter; S23.41XA Sprain of ribs, initial encounter; I87.2 Venous insufficiency (chronic) (peripheral); W18.39XA Other fall on same level, initial encounter; Y93.01 Activity, walking, marching and hiking; J44.9 Chronic obstructive pulmonary disease, unspecified; Z79.899 Other long term (current) drug therapy; Z88.6 Allergy status to analgesic agent; Z80.1 Family history of malignant neoplasm of trachea, bronchus and lung; Z83.3 Family history of diabetes mellitus; Z82.49 Family history of ischemic heart disease and other diseases of the circulatory system; Z90.710 Acquired absence of both cervix and uterus; Z90.49 Acquired absence of other specified parts of digestive tract; Y93.89 Activity, other specified; Y92.098 Other place in other non-institutional residence as the place of occurrence of the external cause; Y99.8 Other external cause status
CPT/HCPCS: 10005; 36415; 70450; 72192; 73030; 73562; 77012; 80048; 80053; 81001; 82962; 83036; 83735; 85007; 85025; 85027; 85610; 85730; 87040; 87086; 87088; 97163; G0378; J1815; J2001; J2250; J3490

== ENCOUNTER 2023-04-09 13:31 | Emergency (ER) | payer MEDICAID ==
[~2023-04-09] VITALS: Ht 162.6 cm; Wt 92.4 kg
[~2023-04-09 13:31] MED LIST changes: -CEPH-510 PO; -CHOLPOW4 PO; +FURO1TAB31 PO; -LEVO500T31 PO; +RIFA1INJ2 IV; +SPIR25TA PO; -SUCR1TAB22 PO; -TOPI100T68 PO; -VENL150C3 PO
[2023-04-09] MEDS ORDERED: ONDANSETRON ODT 4 MG TAB PO ONE (21:00)
[2023-04-09] MEDS ORDERED: HYDROcodone-ACET 5/325MG TAB PO ONE (21:00)
[2023-04-09 21:24] VITALS: BP 117/76; PULSE 89; RESP 20; TEMP 97.8; O2SAT 96
== END 2023-04-09 21:20 | disposition home or self-care (01) ==
LOC: ER 13:31
DX: M70.51 Other bursitis of knee, right knee (principal); F41.9 Anxiety disorder, unspecified; J44.9 Chronic obstructive pulmonary disease, unspecified; F32.9 Major depressive disorder, single episode, unspecified; E11.9 Type 2 diabetes mellitus without complications; K21.9 Gastro-esophageal reflux disease without esophagitis; E78.5 Hyperlipidemia, unspecified; I10 Essential (primary) hypertension; Z88.6 Allergy status to analgesic agent; Z88.8 Allergy status to other drugs, medicaments and biological substances; Z88.5 Allergy status to narcotic agent; Z79.899 Other long term (current) drug therapy; Z90.49 Acquired absence of other specified parts of digestive tract; Z90.710 Acquired absence of both cervix and uterus; Z90.89 Acquired absence of other organs; Z98.890 Other specified postprocedural states; Z87.891 Personal history of nicotine dependence; Y93.89 Activity, other specified
CPT/HCPCS: 73562; 93971

== ENCOUNTER 2023-08-29 14:56 | Emergency (ER) | payer MEDICAID ==
[~2023-08-29] VITALS: Ht 160 cm; Wt 79.5 kg
[2023-08-29 16:48] VITALS: TEMP 98.2
[2023-08-29] MEDS ORDERED: CIPRSUS OT ×3 (16:49→16:55)
[2023-08-29] MEDS ORDERED: AUG875T PO ×3 (16:49→16:55)
[2023-08-29 17:05] VITALS: BP 194/78; PULSE 97; RESP 18; O2SAT 96
== END 2023-08-29 17:03 | disposition home or self-care (01) ==
LOC: ER 14:56 → EDUNIT# 14:56 → EDBD 14:56 → ER 16:59
DX: S01.331A Puncture wound without foreign body of right ear, initial encounter (principal); H66.93 Otitis media, unspecified, bilateral; J44.9 Chronic obstructive pulmonary disease, unspecified; E11.9 Type 2 diabetes mellitus without complications; K21.9 Gastro-esophageal reflux disease without esophagitis; E78.5 Hyperlipidemia, unspecified; I10 Essential (primary) hypertension; Z90.49 Acquired absence of other specified parts of digestive tract; Z88.6 Allergy status to analgesic agent; Z87.891 Personal history of nicotine dependence; Z88.8 Allergy status to other drugs, medicaments and biological substances; X58.XXXA Exposure to other specified factors, initial encounter; Y93.89 Activity, other specified; Y92.89 Other specified places as the place of occurrence of the external cause; Y99.8 Other external cause status

== ENCOUNTER → 2024-03-25 | Outpatient (CLI) | payer MEDICAID ==
[~2024-03-25] MED LIST changes: +AUG875T PO; +CIPRSUS OT; -MELO-335 PO; +MELO15TA29 PO; +ROPI0.5T26 PO; -ROPI0.5T4 PO
== END | disposition home or self-care (01) ==
LOC: Rad HDHVI 10:10
PROVIDERS: ATTEND Internal Medicine Cardiovascular Disease
DX: R01.1 Cardiac murmur, unspecified (principal); E11.40 Type 2 diabetes mellitus with diabetic neuropathy, unspecified
CPT/HCPCS: 93880; 93925

== ENCOUNTER → 2024-03-26 | Outpatient (CLI) | payer MEDICAID | END | disposition home or self-care (01) | LOC: Rad HDHVI 15:06 | PROVIDERS: ATTEND Internal Medicine Cardiovascular Disease | DX: I34.0 Nonrheumatic mitral (valve) insufficiency (principal); R01.1 Cardiac murmur, unspecified | CPT/HCPCS: 93306 ==

== ENCOUNTER → 2024-03-30 | Outpatient (CLI) | payer MEDICAID ==
[~2024-03-30] VITALS: Ht 162.6 cm; Wt 79.4 kg
[~2024-03-30] MED LIST changes: +ADENOSINE 67 MG in GIVE UN-DILUTED 0 ML IV ONE; +ADENOSINE 90 MG/30 ML INJ IV ONE
== END | disposition home or self-care (01) ==
LOC: Rad HDHVI 09:15
PROVIDERS: ATTEND Internal Medicine Cardiovascular Disease
DX: I10 Essential (primary) hypertension (principal); R01.1 Cardiac murmur, unspecified; E11.9 Type 2 diabetes mellitus without complications
CPT/HCPCS: 78452; 93005; 96374; 96375; A9500; J0153

== ENCOUNTER 2024-06-30 14:23 | Emergency (ER) | payer MEDICAID ==
[~2024-06-30] VITALS: Ht 162.6 cm; Wt 77.3 kg
[~2024-06-30 14:23] MED LIST changes: -ADENOSINE 67 MG in GIVE UN-DILUTED 0 ML IV ONE; -ADENOSINE 90 MG/30 ML INJ IV ONE; -FUR20T PO; +FURO20TA4 PO
[2024-06-30 15:17] LABS: Basophils # (auto) 0 10 ^3/uL (0-0.2); Basophils % (auto) 0.1 % (0.0-2.0); Eosinophils # (auto) 0 10 ^3/uL (0-0.8); Eosinophils % (auto) 1.6 % (0.0-7.0); Hematocrit 40.1 % (36.0-46.0); Hemoglobin 13.6 g/dL (12.2-16.2); Lymphocytes # (auto) 0.9 10 ^3/uL (0.4-5.4); Mean Corpuscular Hemoglobin 33.6 pg (28.0-32.0); Mean Corpuscular Hgb Conc. 33.9 g/dL (32.0-36.0); Monocytes # (auto) 0.5 10 ^3/uL (0-1.3); Monocytes % (auto) 14.6 % (0.0-12.0); Neutrophils # (auto) 1.7 10 ^3/uL (1.6-8.6); Neutrophils % (auto) 55.7 % (37.0-80.0); Nucleated Red Blood Cells % 0.2 %; Platelet Count (auto) 79 10^3/uL (140-450); Red Blood Cells 4.05 10^6/uL (4.0-5.20); Red Cell Distribution Width 16.7 % (11.8-14.3); White Blood Cell 3.1 10^3/uL (4.4-10.8)
[2024-06-30 15:26] LABS: Chloride 106 mmol/L (98-107); Potassium 3.6 mmol/L (3.5-5.1); Sodium 140 mmol/L (136-145)
[2024-06-30 15:27] LABS: Anion Gap 7 (5-15); Carbon Dioxide 27 mmol/L (20-31)
[2024-06-30 15:28] LABS: Calcium 10.2 mg/dL (8.7-10.4)
[2024-06-30 15:32] LABS: Blood Urea Nitrogen 10 mg/dL (9-23); Glucose 73 mg/dL (74-106)
[2024-06-30 15:38] VITALS: BP 128/43; PULSE 92; RESP 18; TEMP 98; O2SAT 99
== END 2024-06-30 16:26 | disposition home or self-care (01) ==
LOC: ER 14:32
DX: E11.42 Type 2 diabetes mellitus with diabetic polyneuropathy (principal); I87.2 Venous insufficiency (chronic) (peripheral); E11.51 Type 2 diabetes mellitus with diabetic peripheral angiopathy without gangrene; F41.9 Anxiety disorder, unspecified; I10 Essential (primary) hypertension; J44.9 Chronic obstructive pulmonary disease, unspecified; M19.90 Unspecified osteoarthritis, unspecified site; K21.9 Gastro-esophageal reflux disease without esophagitis; Z79.51 Long term (current) use of inhaled steroids; Z79.899 Other long term (current) drug therapy; Z88.5 Allergy status to narcotic agent; Z88.6 Allergy status to analgesic agent; Z88.7 Allergy status to serum and vaccine; Z90.49 Acquired absence of other specified parts of digestive tract; Z90.710 Acquired absence of both cervix and uterus; Z87.891 Personal history of nicotine dependence
CPT/HCPCS: 36415; 80048; 85025; 93926; 93971

== ENCOUNTER 2024-10-21 17:43 | Inpatient (IN) | payer MEDICAID ==
[~2024-10-21] VITALS: Ht 162.6 cm; Wt 70.8 kg
--- NOTE | 2024-10-21 18:03 | ED.PDOC ---
HPI Comments chandrika HPI: Poor Historian. HPI: 64 y/o F, presents to the ED for CC of chest pain. Patient states, that she is experiencing substernal non-radiating chest pain since last night.. Patient relays, new onset symptoms of shortness of breath and right arm tingling x1hour. Patient denies fever, chills, body-aches, dizziness, or N/V/D. No other symptoms or modifying factors at this time. Patient states that her chest discomfort is now resolved but she still has the right upper extremity sensation. VITALS: Temp:97.8 RR: 20 02 sat : 99 HR: 78 BP:147/64 Past medical history: STAGE 4 LIVER CIRRHOSIS, CKD, DM, HTN, HEPATITIS C, HEART MURMURS , osteoporosis Past surgical history: X3, APPENDECTOMY, CHOLECYSTECTOMY Social history: DENIES Medications: ALBUTEROL, ALENDRONATE, AMITRIPTYLINE, AMMONIUM LACTATE, BELBUCA, CALCITONIN, CALCIUM ASCORBATE, CARVEDILOL, CLOTRIMAZOLE-BETAMETHASONE, CYANOCOBALAMIN, PROMACTA, LODINE, GABAPENTIN, LOTRISONE, ELAVIL, LASIX Allergies: NKA REVIEW OF SYSTEMS: CONSTITUTIONAL: Denies acute: fever, diaphoresis, chills, HEAD: Denies acute: headache, photophobia Eyes: Denies acute: Double vision, vision loss, eye pain, eye discharge. EARS: Denies acute: tinnitus, hearing loss, ear discharge, ear pain, THROAT: Denies acute: sore throat, swelling, difficulty swallowing , pain with swallowing, change in voice. NECK: Denies acute: neck pain, neck swelling, stiff neck. HEART: Denies acute : , palpitations, LUNGS: Denies acute: wheezing, cough, hemoptysis ABDOMEN: Denies acute: abdominal pain, Nausea, Vomiting, diarrhea, melena , hematemesis, hematochezia SKIN: Denies acute: rash, redness, lesions, itchiness. EXTREMITIES: Denies acute: calf pain, , , weakness, denies pain in extremity. Denies acute: Low back pain. Neuro: Denies acute: focal neurological deficit, motor or sensory focal neurological deficit, tremors, seizure like activity, confusion, dizziness, change in mental status, loss of bowel or bladder function, cauda equina like symptoms. : Denies acute: dysuria, hematuria, flank pain, increase in urinary frequency. PSYCH: Denies acute: hallucination, suicidal ideation, homicidal ideation. FEMALE: Denies acute: abnormal vaginal bleeding, foul odor, unusual discharge. PHYSICAL EXAM: General: no acute distress, awake and alert. Head: normocephalic, atraumatic. Neck: supple, trachea is midline, no swelling. Throat: Normal phonation. Eyes:, no erythema, no purulent discharge, no proptosis, no icterus. Heart: regular rate, regular rhythm, no significant murmur appreciated. Lungs: no apparent respiratory distress, Able to speak in full sentences. No wheezing, no rhonchi, no crackles. No stridors Clear to auscultation bilaterally. Abdomen: non tender to palpation, non distended, soft, no guarding, no rebound, + bowel sounds. Neuro: Awake, Alert, oriented to name, self, situation, follows commands GCS=15. Speech is normal. Skin: no petechia, no purpura, no cyanosis, non-pale, not jaundice. Lower extremities: --trace bilateral- Pitting edema no deformity, no focal swelling, no calf TTP. Makes eye contact. moves all four extremities. Face: no apparent facial droop. Ambulating in the ED independently. Chief Complaint: Chest Pain Time Seen by MD: 17:50 Primary Care Provider: THEE Reviewed Notes: Nurses Notes, Medications, Allergies Allergies: Coded Allergies: Aspirin (Verified Allergy, Unknown, 02/11/20) Flu Virus Vaccine (Verified Allergy, Unknown, 02/11/20) Ibuprofen (Verified Allergy, Unknown, 01/28/19) Vitamin E (Verified Allergy, Unknown, 01/28/19) Morphine and Codeine (Verified Adverse Reaction, Unknown, HALLUCINATION, 01/28/19) SENSITIVITY Uncoded Allergies: PLASTIC TAPE (Allergy, Severe, 03/30/16) TAPE (Allergy, Unknown, 01/21/14) Home Meds Active Scripts Ciprofloxacin-Hydrocortisone (Cipro Hc 0.2-1 %) 1 Rita Rita, 4 DROP OT BID, #7.5 ML Prov:SANDRA BARNETT 08/29/23 Amoxicillin & Pot Clavulanate (AUGMENTIN TABLET) 875 Mg Tb, 875 MG PO BID for 10 Days, #20 TAB Prov:SANDRA BARNETT 08/29/23 Acetaminophen (Tylenol 8 Hour Arthritis) 650 Mg Tab, 650 MG PO TID, #30 TAB Prov:SANDRA BARNETT PA 01/05/23 Hydrocodone-Acetaminophen (Hydrocodone Bitartrate/AC 10-325 mg) 1 Tab Tab, 1 TAB PO BID, #10 TAB Prov:SANDRA BARNETT PA 11/09/22 Oxycodone HCl (Oxycodone HCl ER) 10 Mg Tab, 10 MG PO BID, #15 TAB Prov:SHIRA GOMEZ PAC 10/26/22 Furosemide (Furosemide) 20 Mg Tab, 20 MG PO DAILY, #30 TAB Prov:DENIS ELIZALDE MD 01/17/22 Lactulose (Lactulose) 10 Gm/15 Ml Angela, 20 GM PO Q6HR, #2400 ML Prov:DENIS ELIZALDE MD 01/17/22 Potassium Chloride (Klor-Con 10) 10 Meq Tab, 20 MEQ PO BID, #60 TAB Prov:FRANCISCO FAY MD 05/16/20 Rifaximin (Xifaxan) 550 Mg Tab, 1 TAB PO BID, #60 TAB Prov:FRANCISCO FAY MD 05/16/20 Reported Medications Spironolactone (Aldactone) 25 Mg Tab, 1 TAB PO DAILY, #90 TAB 1 Refill 02/23/23 Rifampin (RIFAMPIN) 600 Mg Inj, 600 MG IV, INJ 02/23/23 Furosemide (Lasix) 40 Mg Tab, 40 MG PO, TAB 02/23/23 Albuterol Sulfate (VENTOLIN MDI) 90 Mcg Ih, 90 MCG IN, INH 01/17/22 Fluticasone-Salmeterol (Advair Diskus 100-50 Mcg/Dose) 1 Aer Aer, 1 AER IN, AER 01/17/22 Buprenorphine (BUTRANS) 20 Mcg/Hr Dis, 20 MCG TD, DIS 01/17/22 Buspirone HCl (Buspirone Hydrochloride) 5 Mg Tab, 5 MG PO, TAB 01/17/22 Omeprazole (Omeprazole) 20 Mg Cap, 20 MG PO, CAP 01/17/22 Carvedilol (Carvedilol) 6.25 Mg Tab, 6.25 MG PO BID, TAB 01/17/22 Amitriptyline Hcl (Amitriptyline Hcl) 100 Mg Tab, 100 MG PO HS, TAB 01/17/22 Meloxicam (Meloxicam) 15 Mg Tab, 15 MG PO, TAB 01/17/22 Cholecalciferol (VITAMIN D3) 2,000 Unit Tab, 2000 UNIT OR, TAB 01/17/22 Zinc Gluconate (Zinc Gluconate) 50 Mg Tab, 50 MG PO, TAB 01/17/22 Ondansetron HCl (Ondansetron) 4 Mg Tab, 4 MG PO, TAB 01/17/22 Ropinirole Hydrochloride (Ropinirole Hcl) 0.5 Mg Tab, 0.5 MG PO QHSP, TAB 11/25/19 Hydroxyzine Hcl (Hydroxyzine Hcl) 25 Mg Tab, 25 MG PO [id number] PRN for ANXIETY for 30 Days, MG 11/25/19 Spironolactone (Spironolactone) 25 Mg Tab, 4 TAB PO DAILY, #90 TAB 1 Refill 03/30/18 Lamotrigine (Lamotrigine) 100 Mg Tab, 1 TAB PO DAILY, #60 TAB 10/24/16 Information Source: Patient Mode of Arrival: Ambulatory Severity: Mild Timing: Hours Duration: Since onset Prehospital treatment: None Location: Substernal Radiation: Other (LEFT ARM PIT) Was a procedure done? Was a procedure done?: No CP Differential Dx Differential Diagnosis: N/A Differential Diagnosis: Other (Ddx include but not limitied to gastritis, musculoskeletal pain, radiculopathy, atypical chest pain, dissection, aneurysm, ACS, unstable angina, hiatal hernia, GERD, anxiety, costochondritis, PE, pneumothroax, neoplasm, cardiac ischemia, drug abuse, anemia.) X-Ray, Labs, Meds, VS Vital Signs Date Time Temp Pulse Resp B/P (MAP) Pulse Ox O2 Delivery O2 Flow Rate FiO2 10/21/24 20:31 72 10/21/24 18:40 77 10/21/24 17:46 97.8 78 20 147/64 (91) 99 Lab Test 10/21/24 21:16 10/21/24 20:19 10/21/24 19:09 10/21/24 18:07 Range/Units Troponin I High Sensitivity 3 L 3 L 3 L </=34 ng/L Thyroid Stimulating Hormone (TSH) 2.34 0.55-4.78 uIU/mL Urine Color Yellow Yellow Urine Clarity Clear Clear Urine pH 6.0 5.0-9.0 Urine Specific [place] 1.016 1.001-1.035 Urine Protein Negative Negative Urine Ketones Negative Negative Urine Blood 2+ H Negative /uL Urine Nitrite Negative Negative Urine Bilirubin Negative Negative Urine Urobilinogen Normal Negative mg/dL Urine Leukocyte Esterase 2+ Negative /uL Urine RBC 88 0 - 4 /hpf Urine Microscopic WBC 35 H 0-5 /HPF Urine Squamous Epithelial Cells Few <5 /hpf Urine Bacteria None seen None Seen /hpf Urine Hyaline Casts Few 0 - 2 /lpf Urine Glucose Normal Normal mg/dL White Blood Count 6.4 4.4-10.8 10^3/uL Red Blood Count 4.04 4.0-5.20 10^6/uL Hemoglobin 13.5 12.2-16.2 g/dL Hematocrit 39.9 36.0-46.0 % Mean Corpuscular Volume 98.7 80.0-100.0 fL Mean Corpuscular Hemoglobin 33.3 H 28.0-32.0 pg Mean Corpuscular Hemoglobin Concent 33.8 32.0-36.0 g/dL Red Cell Distribution Width 14.4 H 11.8-14.3 % Platelet Count 112 L 140-450 10^3/uL Mean Platelet Volume 8.6 6.9-10.8 fL Neutrophils (%) (Auto) 54.8 37.0-80.0 % Lymphocytes (%) (Auto) 32.4 10.0-50.0 % Monocytes (%) (Auto) 10.4 0.0-12.0 % Eosinophils (%) (Auto) 2.1 0.0-7.0 % Basophils (%) (Auto) 0.3 0.0-2.0 % Neutrophils # (Auto) 3.5 1.6-8.6 10 ^3/uL Lymphocytes # (Auto) 2.1 0.4-5.4 10 ^3/uL Monocytes # (Auto) 0.7 0-1.3 10 ^3/uL Eosinophils # (Auto) 0.1 0-0.8 10 ^3/uL Basophils # (Auto) 0 0-0.2 10 ^3/uL Nucleated Red Blood Cells 0.1 % Sodium Level 140 136-145 mmol/L Potassium Level 3.8 3.5-5.1 mmol/L Chloride Level 102 98-107 mmol/L Carbon Dioxide Level 31 20-31 mmol/L Anion Gap 7 5-15 Blood Urea Nitrogen 18 9-23 mg/dL Creatinine 0.87 0.550-1.02 mg/dL Glomerular Filtration Rate Calc 75 >90 mL/min BUN/Creatinine Ratio 20.7 H 10.0-20.0 Serum Glucose 88 74-106 mg/dL Calcium Level 11.3 H 8.7-10.4 mg/dL Magnesium Level 1.7 1.6-2.6 mg/dL Total Bilirubin 1.2 H 0.2-1.0 mg/dL Aspartate Amino Transferase (AST) 40 13-40 U/L Alanine Aminotransferase (ALT) 33 7-40 U/L Alkaline Phosphatase 153 H 46-116 U/L Ammonia 44 H 11-32 umol/L B-Type Natriuretic Peptide 93.74 0-100 pg/mL Total Protein 5.9 5.7-8.2 g/dL Albumin 3.4 3.2-4.8 g/dL Current Medications Medications (Trade) Dose Ordered Sig/Cher Route Start Time Stop Time Status Last Admin Ceftriaxone Sodium 50 ml @ 100 mls/hr ONCE ONCE IV 10/21/24 19:00 10/21/24 19:29 DC 10/21/24 22:56 PATIENT: NAZIA MARVINT: [id number]: [id number] : 1960 LOC: ER ROOM / BED: / AGE / SEX: 64 / F ADM STATUS: REG ER SERVICE 18 ORDERING PHYSICIAN: RODOLFO WINCHESTER DO PROCEDURE(s): CXRP - CHEST PORTABLE REASON: CP ORDER NUMBER(s): [id number], ACCESSION NUMBER(s): [id number] EXAM: XR Chest, 1 View CLINICAL INDICATION: CP TECHNIQUE: Frontal view of the chest. COMPARISON: CXRP on DOS: 01/16/22, CHEST PORTABLE on DOS: 01/16/22 FINDINGS: LUNGS AND PLEURAL SPACES: Right basilar atelectasis or pneumonia. No pneumothorax. HEART: Unremarkable. No cardiomegaly. MEDIASTINUM: Unremarkable. Normal mediastinal contour. BONES/JOINTS: Unremarkable. No acute fracture. OTHER FINDINGS: . . . .. IMPRESSION: Right basilar atelectasis or pneumonia. ATED BY: SHIRA GARRIDO MD DICTATED DATE/TIME: 10/21/241836 SIGNED BY: SHIRA GARRIDO MD SIGNED DATE/TIME: 10/21/241836 Time of 1ST Reevaluation: 18:20 Reevaluation 1ST: Unchanged Time of 2ND Reevaluation: 18:55 (All chemistry and troponins are still pending.) Patient Education/Counseling: Diagnosis, Treatment Family Education/Counseling: Other Comments Patient presented with the above HPI.--cardiac----workup was initiated. patient was found with the above mentioned diagnosis. the following medications were ordered: Patient is allergic to aspirin. please refer to order lists of meds and tests obtained by myself Dr. Winchester. Patient ED course and VS have been stabilized. Patient has been reassessed in the ED and remained in a stable condition. Pertinent incidental findings were discussed with the patient and/or family. Patient/family voices understanding and is agreeable with plan. Patient has been observed in the ED adequate length of time to insure improvement/stability. Escalation of care considered: Consideration of escalation to observation or admission Patient was ADMITTED to the medicine team for further evaluation and treatment of their presentation. All the reports of any imaging studies that were ordered by myself were reviewed by myself. Departure 1 Departure Time of Disposition: 18:36 Impression: Primary Impression: Chest pain Additional Impressions: Pneumonia Thrombocytopenia Disposition: ADMITTED INPATIENT Admit to: [facility] Condition: Guarded Discharged With: Self Heart Score Heart Score: Heart Score Response (Comments) Value History Moderate Suspicious 1 EKG Normal 0 Age 45-64 1 Risk Factors >3 or Hx ASHD 2 Troponin Normal limit 0 Total 4 I personally scribed for RODOLFO WINCHESTER DO ([email or web address]) on 10/21/24 at 18:03. Electronically submitted by Kianna Smith ([email or web address]). I personally scribed for RODOLFO WINCHESTER DO ([email or web address]) on 10/21/24 at 18:20. Electronically submitted by Kianna Smith ([email or web address]). I personally scribed for RODOLFO WINCHESTER DO ([email or web address]) on 2/5/25 at 18:31. Electronically submitted by Kianna Smith ([email or web address]). I personally scribed for RODOLFO WINCHESTER DO ([email or web address]) on 10/21/24 at 19:06. Electronically submitted by Haris Ivey ([email or web address]). RODOLFO WINCHESTER DO Oct 21, 2024 18:03
[2024-10-21 18:22] LABS: Basophils # (auto) 0 10 ^3/uL (0-0.2); Basophils % (auto) 0.3 % (0.0-2.0); Eosinophils # (auto) 0.1 10 ^3/uL (0-0.8); Eosinophils % (auto) 2.1 % (0.0-7.0); Hematocrit 39.9 % (36.0-46.0); Hemoglobin 13.5 g/dL (12.2-16.2); Lymphocytes # (auto) 2.1 10 ^3/uL (0.4-5.4); Lymphocytes % (auto) 32.4 % (10.0-50.0); Mean Corpuscular Hemoglobin 33.3 pg (28.0-32.0); Mean Corpuscular Hgb Conc. 33.8 g/dL (32.0-36.0); Mean Corpuscular Volume 98.7 fL (80.0-100.0); Monocytes # (auto) 0.7 10 ^3/uL (0-1.3); Monocytes % (auto) 10.4 % (0.0-12.0); Neutrophils # (auto) 3.5 10 ^3/uL (1.6-8.6); Neutrophils % (auto) 54.8 % (37.0-80.0); Nucleated Red Blood Cells % 0.1 %; Platelet Count (auto) 112 10^3/uL (140-450); Red Blood Cells 4.04 10^6/uL (4.0-5.20); Red Cell Distribution Width 14.4 % (11.8-14.3); White Blood Cell 6.4 10^3/uL (4.4-10.8)
[2024-10-21 18:38] LABS: Alanine Aminotransferase 33 U/L (7-40); Albumin 3.4 g/dL (3.2-4.8); Anion Gap 7 (5-15); BUN/Creatinine Ratio 20.7 (10.0-20.0); Blood Urea Nitrogen 18 mg/dL (9-23); Carbon Dioxide 31 mmol/L (20-31); Chloride 102 mmol/L (98-107); Glucose 88 mg/dL (74-106); Potassium 3.8 mmol/L (3.5-5.1); Sodium 140 mmol/L (136-145); Total Protein 5.9 g/dL (5.7-8.2)
--- NOTE | 2024-10-21 18:39 | DVH ---
EXAM: XR Chest, 1 View CLINICAL INDICATION: CP TECHNIQUE: Frontal view of the chest. COMPARISON: CXRP on DOS: 01/16/22, CHEST PORTABLE on DOS: 01/16/22 FINDINGS: LUNGS AND PLEURAL SPACES: Right basilar atelectasis or pneumonia. No pneumothorax. HEART: Unremarkable. No cardiomegaly. MEDIASTINUM: Unremarkable. Normal mediastinal contour. BONES/JOINTS: Unremarkable. No acute fracture. OTHER FINDINGS: . . . .. IMPRESSION: Right basilar atelectasis or pneumonia.
[2024-10-21 19:22] LABS: Alkaline Phosphatase 153 U/L (46-116); Aspartate Aminotransferase 40 U/L (13-40); Bilirubin, Total 1.2 mg/dL (0.2-1.0); Calcium 11.3 mg/dL (8.7-10.4)
[2024-10-21 20:19] LABS: Urine Bacteria None Seen /hpf (None Seen)
[2024-10-21 20:41] LABS: Urine Blood 2+ /uL (Negative); Urine Clarity Clear (Clear); Urine Color Yellow (Yellow); Urine Hyaline Cast FEW /lpf (0 - 2); Urine Protein, UAD Negative (Negative); Urine Specific Gravity 1.016 (1.001-1.035); Urine Squamous Epithelial Cell FEW /hpf (<5); Urine Urobilinogen Normal (Negative); Urine WBC 35 /HPF (0-5)
[2024-10-21] MEDS: cefTRIAXone 1GM/50ML D5W 50 ML IV ONE (22:56)
[2024-10-22] MEDS ORDERED: ONDANSETRON HCL 4 MG/2 ML VIAL IV PRN (01:30)
--- NOTE | 2024-10-22 01:57 | DVHHPRES ---
History of Present Illness Resident Creating Document: HALI OCAMPO RESIDENT Reason for Visit: Chest Pain History of Present Illness 64 years old female with past medical history of Liver cirrhosis (stage 4), hypertension, diabetes mellitus type 2, and COPD. presents with chest pain and right upper extremity numbness. The chest pain started yesterday morning, initially improved with rest, but recurred today with increased severity. Patient describes the pain as Stabbing localized to the chest, rated 10/10 in intensity. The pain is exacerbated by movement, deep breathing, and palpation. Associated symptoms include dyspnea and tachycardia. Patient's checked her blood pressure, which was elevated at 189/79. The right upper extremity numbness extends from the hand to the shoulder. She reports being on hospice care and takes medications for hypertension and diabetes and liver cirrhosis. Patient also has a history of chronic lower extremity numbness and neuropathy. Past Medical History Liver cirrhosis (stage 4), hypertension, diabetes mellitus type 2, and COPD. Past Surgical History Appendectomy, Cholecystectomy, , Hysterectomy, Tonsillectomy Past Social History The patient lives at home, denies smoking, alcohol or illicit drugs abuse. Review of Systems Review of Systems CONSTITUTIONAL: Admits Fatigue, Denies weight loss, fever and chills. HEENT: Denies changes in vision and hearing. RESPIRATORY: Admits shortness of breath CV: Admits Chest pain, palpitations GI: Denies abdominal pain, nausea, vomiting and diarrhea. : Denies dysuria and urinary frequency. MSK: AdmitsJoint pain in knees. SKIN: Denies rash and pruritus. NEUROLOGICAL: Denies headache Allergies: Coded Allergies: Aspirin (Verified Allergy, Unknown, 02/11/20) Flu Virus Vaccine (Verified Allergy, Unknown, 02/11/20) Ibuprofen (Verified Allergy, Unknown, 01/28/19) Vitamin E (Verified Allergy, Unknown, 01/28/19) Morphine and Codeine (Verified Adverse Reaction, Unknown, HALLUCINATION, 01/28/19) SENSITIVITY Uncoded Allergies: PLASTIC TAPE (Allergy, Severe, 03/30/16) TAPE (Allergy, Unknown, 01/21/14) Medications Current Medications Medications Dose Ordered Sig/Cher Route Start Time Stop Time Status Last Admin Dose Admin Sodium Chloride 10 ml Q8HR IV 10/22/24 06:00 UNV Ondansetron HCl 4 mg Q4HP PRN IV 10/22/24 01:30 UNV Ceftriaxone Sodium 50 ml @ 100 mls/hr DAILY IV 10/22/24 10:00 UNV Azithromycin 250 ml @ 125 mls/hr DAILY IV 10/22/24 10:00 UNV Exam Vital Signs Vital Signs Date Time Temp Pulse Resp B/P (MAP) Pulse Ox O2 Delivery O2 Flow Rate FiO2 10/21/24 20:31 72 10/21/24 17:46 97.8 20 147/64 (91) 99 Exam GENERAL: Not in acute distress. HEENT: EOMI, Moist mucous membranes. No scleral icterus. No cervical lymphadenopathy. LUNGS: Diminished breath sounds bilaterally. No accessory muscle use. CARDIOVASCULAR: Regular rate and rhythm. No murmur. No JVD. ABDOMEN: Soft, nontender and nondistended. No palpable masses. EXTREMITIES: No edema. Nontender. SKIN: No rashes or lesions. Warm. NEUROLOGIC: Alert and oriented X3 Labs/Xrays Labs Test 10/21/24 21:16 10/21/24 20:19 10/21/24 18:07 Range/Units Troponin I High Sensitivity 3 L </=34 ng/L Thyroid Stimulating Hormone (TSH) 2.34 0.55-4.78 uIU/mL Urine Color Yellow Yellow Urine Clarity Clear Clear Urine pH 6.0 5.0-9.0 Urine Specific [place] 1.016 1.001-1.035 Urine Protein Negative Negative Urine Ketones Negative Negative Urine Blood 2+ H Negative /uL Urine Nitrite Negative Negative Urine Bilirubin Negative Negative Urine Urobilinogen Normal Negative mg/dL Urine Leukocyte Esterase 2+ Negative /uL Urine RBC 88 0 - 4 /hpf Urine Microscopic WBC 35 H 0-5 /HPF Urine Squamous Epithelial Cells Few <5 /hpf Urine Bacteria None seen None Seen /hpf Urine Hyaline Casts Few 0 - 2 /lpf Urine Glucose Normal Normal mg/dL White Blood Count 6.4 4.4-10.8 10^3/uL Red Blood Count 4.04 4.0-5.20 10^6/uL Hemoglobin 13.5 12.2-16.2 g/dL Hematocrit 39.9 36.0-46.0 % Mean Corpuscular Volume 98.7 80.0-100.0 fL Mean Corpuscular Hemoglobin 33.3 H 28.0-32.0 pg Mean Corpuscular Hemoglobin Concent 33.8 32.0-36.0 g/dL Red Cell Distribution Width 14.4 H 11.8-14.3 % Platelet Count 112 L 140-450 10^3/uL Mean Platelet Volume 8.6 6.9-10.8 fL Neutrophils (%) (Auto) 54.8 37.0-80.0 % Lymphocytes (%) (Auto) 32.4 10.0-50.0 % Monocytes (%) (Auto) 10.4 0.0-12.0 % Eosinophils (%) (Auto) 2.1 0.0-7.0 % Basophils (%) (Auto) 0.3 0.0-2.0 % Neutrophils # (Auto) 3.5 1.6-8.6 10 ^3/uL Lymphocytes # (Auto) 2.1 0.4-5.4 10 ^3/uL Monocytes # (Auto) 0.7 0-1.3 10 ^3/uL Eosinophils # (Auto) 0.1 0-0.8 10 ^3/uL Basophils # (Auto) 0 0-0.2 10 ^3/uL Nucleated Red Blood Cells 0.1 % Sodium Level 140 136-145 mmol/L Potassium Level 3.8 3.5-5.1 mmol/L Chloride Level 102 98-107 mmol/L Carbon Dioxide Level 31 20-31 mmol/L Anion Gap 7 5-15 Blood Urea Nitrogen 18 9-23 mg/dL Creatinine 0.87 0.550-1.02 mg/dL Glomerular Filtration Rate Calc 75 >90 mL/min BUN/Creatinine Ratio 20.7 H 10.0-20.0 Serum Glucose 88 74-106 mg/dL Calcium Level 11.3 H 8.7-10.4 mg/dL Magnesium Level 1.7 1.6-2.6 mg/dL Total Bilirubin 1.2 H 0.2-1.0 mg/dL Aspartate Amino Transferase (AST) 40 13-40 U/L Alanine Aminotransferase (ALT) 33 7-40 U/L Alkaline Phosphatase 153 H 46-116 U/L Ammonia 44 H 11-32 umol/L B-Type Natriuretic Peptide 93.74 0-100 pg/mL Total Protein 5.9 5.7-8.2 g/dL Albumin 3.4 3.2-4.8 g/dL Assessment/Plan Assessment/Plan # Acute Chest Pain, possibly due to pneumonia, ruled out ACS # possible Gm +/- bacterial pneumonia vs atypical pneumonia # community-acquired pneumonia - EKG: Normal, tropes negative - evidenced on CXR - continue IV Rocephin and I/V azithromycin # Alcoholic liver cirrhosis stage IV - History of alcohol abuse (quit ~18 years ago - Lasix 40 mg - Spironolactone 100 m # COPD, not exacerbation -patient is on Advair (inhaler) - continue breathing treatment - patient is on room air - Monitor respiratory status and oxygen requirements # Hypertension - Continue current antihypertensive medication - Closely monitor blood pressure during admission # Type 2 Diabetes Mellitus - continue SSI - monitor blood glucose level # Peripheral Neuropathy - Continue current neurological medications - Monitor for changes in sensation or pain Goal of care discussed with patient for 39 minutes: Full code Case discussed with Dr. Coronado Plan discussed with: Patient My Orders Orders - HALI OCAMPO RESIDENT Procedure Category Date Status Time Prothrombin Time W/ LAB 10/23/24 Verified INR 04:00 Urinalysis LAB 10/22/24 Logged 00:49 Admit ADMIT 10/22/24 Transmitted 01:30 Allergies HOWARD 10/22/24 In Process 01:30 Code Status CODE 10/22/24 Transmitted 01:30 Sodium Chloride Lock PHA 10/22/24 Logged (Saline Lock Ns) 06:00 Ondansetron Hcl PHA 10/22/24 Logged (Zofran) 01:30 Cardiac DIET 10/22/24 Transmitted Diet-2gna,Lofat,Lochol Breakfast Ceftriaxone 1gm/50ml PHA 10/22/24 Logged D5w (Rocephin) 10:00 Azithromycin 500mg/ PHA 10/22/24 Logged 250ml (Zithromax 50 01:45 Azithromycin 500mg/ PHA 10/22/24 Logged 250ml (Zithromax 50 10:00 Date of Service: Oct 22, 2024 Billing Provider: OFE CORONADO MD Common Visit Codes: [id number] INP/OBS CARE (HIGH) HALI OCAMPO RESIDENT Oct 22, 2024 01:57 OFE CORONADO MD Oct 25, 2024 14:54
[2024-10-22] MEDS: AZITHROMYCIN 500MG/ 250ML 250 ML IV ONE (02:34)
[2024-10-22] MEDS: AZITHROMYCIN 500MG/ 250ML 250 ML IV SCH (03:00)
[2024-10-22] MEDS ORDERED: DEXTROSE (50%) 50ML SYRG IV PRN (06:00)
[2024-10-22] MEDS: SODIUM CHLOR 0.9% PF (SALINE LOCK) 10ML VIAL/SYR IV SCH (06:16)
[2024-10-22] MEDS: ACCU-CHEK COMFORT CURVE STRIP VI SCH (07:00)
--- NOTE | 2024-10-22 07:27 | ECG ---
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
--- NOTE | 2024-10-22 07:27 | ECG ---
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
[2024-10-22 07:45] VITALS: RESP 16; O2SAT 100
--- NOTE | 2024-10-22 07:52 | ECG ---
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
[2024-10-22] MEDS: InsuLIN REG 1unit/0.01ml Soln (100units/ml) SC SCH (08:07)
[2024-10-22 08:41] LABS: COVID19 ANTIGEN SOFIA FIA NEGATIVE (NEGATIVE)
[2024-10-22] MEDS: FUROSEMIDE 20 MG TAB PO SCH (10:00)
[2024-10-22] MEDS: SPIRONOLACTONE 25 MG TAB PO SCH (10:00)
[2024-10-22 14:15] VITALS: BP 127/78; PULSE 76; RESP 16; TEMP 97.9; O2SAT 100
--- NOTE | 2024-10-22 17:20 | DVHDSRES ---
Discharge Summary Date of Admission Resident Creating Document: HALI OCAMPO RESIDENT Oct 22, 2024 at 01:30 Date of Discharge: Oct 22, 2024 Admitting Diagnosis Pneumonia chest pain Labs/Diagnostic Data: PATIENT: TODD MARVIN ACCT: [id number] UNIT: [id number] : 1960 LOC: ER ROOM / BED: / AGE / SEX: 64 / F ADM STATUS: REG ER SERVICE ORDERING PHYSICIAN: RODOLFO WINCHESTER DO PROCEDURE(s): CXRP - CHEST PORTABLE REASON: CP ORDER NUMBER(s): [id number], ACCESSION NUMBER(s): [id number] EXAM: XR Chest, 1 View CLINICAL INDICATION: CP TECHNIQUE: Frontal view of the chest. COMPARISON: CXRP on DOS: 01/16/22, CHEST PORTABLE on DOS: 01/16/22 FINDINGS: LUNGS AND PLEURAL SPACES: Right basilar atelectasis or pneumonia. No pneumothorax. HEART: Unremarkable. No cardiomegaly. MEDIASTINUM: Unremarkable. Normal mediastinal contour. BONES/JOINTS: Unremarkable. No acute fracture. OTHER FINDINGS: . . . .. IMPRESSION: Right basilar atelectasis or pneumonia. ATED BY: SHIRA GARRIDO MD DICTATED DATE/TIME: 10/21/24 1837 Laboratory Results Test 10/22/24 12:14 10/22/24 08:05 10/21/24 21:16 10/21/24 20:19 POC Glucose 65 mg/dl (70-106) SARS-CoV-2 Antigen (Rapid) Negative (NEGATIVE) Troponin I High Sensitivity 3 ng/L (</=34) Thyroid Stimulating Hormone (TSH) 2.34 uIU/mL (0.55-4.78) Urine Color Yellow (Yellow) Urine Clarity Clear (Clear) Urine pH 6.0 (5.0-9.0) Urine Specific [place] 1.016 (1.001-1.035) Urine Protein Negative (Negative) Urine Ketones Negative (Negative) Urine Blood 2+ /uL (Negative) Urine Nitrite Negative (Negative) Urine Bilirubin Negative (Negative) Urine Urobilinogen Normal mg/dL (Negative) Urine Leukocyte Esterase 2+ /uL (Negative) Urine RBC 88 /hpf (0 - 4) Urine Microscopic WBC 35 /HPF (0-5) Urine Squamous Epithelial Cells Few /hpf (<5) Urine Bacteria None seen /hpf (None Seen) Urine Hyaline Casts Few /lpf (0 - 2) Urine Glucose Normal mg/dL (Normal) Test 10/21/24 18:07 White Blood Count 6.4 10^3/uL (4.4-10.8) Red Blood Count 4.04 10^6/uL (4.0-5.20) Hemoglobin 13.5 g/dL (12.2-16.2) Hematocrit 39.9 % (36.0-46.0) Mean Corpuscular Volume 98.7 fL (80.0-100.0) Mean Corpuscular Hemoglobin 33.3 pg (28.0-32.0) Mean Corpuscular Hemoglobin Concent 33.8 g/dL (32.0-36.0) Red Cell Distribution Width 14.4 % (11.8-14.3) Platelet Count 112 10^3/uL (140-450) Mean Platelet Volume 8.6 fL (6.9-10.8) Neutrophils (%) (Auto) 54.8 % (37.0-80.0) Lymphocytes (%) (Auto) 32.4 % (10.0-50.0) Monocytes (%) (Auto) 10.4 % (0.0-12.0) Eosinophils (%) (Auto) 2.1 % (0.0-7.0) Basophils (%) (Auto) 0.3 % (0.0-2.0) Neutrophils # (Auto) 3.5 10 ^3/uL (1.6-8.6) Lymphocytes # (Auto) 2.1 10 ^3/uL (0.4-5.4) Monocytes # (Auto) 0.7 10 ^3/uL (0-1.3) Eosinophils # (Auto) 0.1 10 ^3/uL (0-0.8) Basophils # (Auto) 0 10 ^3/uL (0-0.2) Nucleated Red Blood Cells 0.1 % Sodium Level 140 mmol/L (136-145) Potassium Level 3.8 mmol/L (3.5-5.1) Chloride Level 102 mmol/L (98-107) Carbon Dioxide Level 31 mmol/L (20-31) Anion Gap 7 (5-15) Blood Urea Nitrogen 18 mg/dL (9-23) Creatinine 0.87 mg/dL (0.550-1.02) Glomerular Filtration Rate Calc 75 mL/min (>90) BUN/Creatinine Ratio 20.7 (10.0-20.0) Serum Glucose 88 mg/dL (74-106) Calcium Level 11.3 mg/dL (8.7-10.4) Magnesium Level 1.7 mg/dL (1.6-2.6) Total Bilirubin 1.2 mg/dL (0.2-1.0) Aspartate Amino Transferase (AST) 40 U/L (13-40) Alanine Aminotransferase (ALT) 33 U/L (7-40) Alkaline Phosphatase 153 U/L (46-116) Ammonia 44 umol/L (11-32) B-Type Natriuretic Peptide 93.74 pg/mL (0-100) Total Protein 5.9 g/dL (5.7-8.2) Albumin 3.4 g/dL (3.2-4.8) Other Laboratory Tests 10/21/24 18:07 Brief Hx & Hospital Course: Brief History and hospital course This 64 years old female with past medical history of Liver cirrhosis (stage 4), hypertension, diabetes mellitus type 2, and COPD presented to the ED with chest pain. Per the patient, patient started yesterday morning, initially improved with rest, but recurred today with increased severity. located in the left sternal region piercing like a knife through her chest and rates 10/10 on pain scale level. The pain is exacerbated by movement, deep breathing, and palpation. Associated symptoms include dyspnea and tachycardia. Patient's checked her blood pressure, which was elevated at 189/79. Patient also reported right upper extremity numbness extends from the medial aspect of his forearm up to the shoulder. Troponin< 3 and BNP 93. Chest x-ray revealed Right basilar atelectasis or pneumonia. She was started on ceftriaxone and Azithromycin. Examination General Appearance: Alert, Oriented X3, Cooperative, No acute distress HEENT: Atraumatic, PERRLA, EOMI, Mucous membrane moist/pink Respiratory: Diminished breath sounds bilaterally. No accessory muscle use. Cardiovascular: Regular rate, Normal S1, Normal S2, No murmurs, no chest wall tenderness Abdominal: NO distention, no tenderness, bowel sounds present, no scars noted Extremities: No clubbing, No cyanosis, No edema, Normal pulses, No tenderness/swelling Skin: darker pigmentation on her upper extremities. ? thin skins that bleeds easily Neuro: Normal gait, Normal speech, Strength at 5/5 X4 ext, Normal tone, Sensation intact, Cranial nerves 3-12 NL, Reflexes 2+ Psych/Mental Status: Mental status NL, Mood NL Diagnoses Acute Chest Pain, possibly due to pneumonia, ACS ruled out possible Gm +/- bacterial pneumonia vs atypical pneumonia community-acquired pneumonia Alcoholic liver cirrhosis stage IV COPD, not exacerbation Hypertension Type 2 Diabetes Mellitus Peripheral Neuropathy I saw the patient and discussed with my attending. However, patient left before my attending could round on her. Discharge plan: None patient left AMA Condition at Discharge: Undetermined Final Diagnosis/Problems List Acute Chest Pain, possibly due to pneumonia, ruled out ACS possible Gm +/- bacterial pneumonia vs atypical pneumonia community-acquired pneumonia Alcoholic liver cirrhosis stage IV COPD, not exacerbation Hypertension Type 2 Diabetes Mellitus Peripheral Neuropathy Discharge Disposition: AMA Discharge Statement: "Patient was advised to return to the ER or call 911 if any headaches, dizziness, shortness of breath, chest pain, abdominal pain, bleeding, fevers, or worsening of medical condition. Patient was counseled about treatment plan, medications, possible side effects, patientverbalized understanding. All questions were answered to the best of my ability. This discharge took greater then 30 minutes in planning, reviewing documentation, counseling the patient, and discussing with other team members." ASSESSMENT ASSESSMENT Assessment Date of Service: Oct 22, 2024 Billing Provider: GEOFFREY BELL MD Common Visit Codes: 70316-DWO/OBS DISCH DAY >30min EVETTE SYLVESTER RESIDENT Oct 22, 2024 17:20 GEOFFREY BELL MD Oct 23, 2024 04:51
[2024-10-22] MEDS ORDERED: cefTRIAXone 1GM/50ML D5W 50 ML IV SCH (23:00)
== END 2024-10-22 16:05 | disposition left against medical advice (07) | DRG 137 ==
LOC: ER 17:43 → TELE 10-22 01:30
PROVIDERS: ADMIT Internal Medicine; ATTEND Emergency Medicine
DX: J15.69 Pneumonia due to other Gram-negative bacteria (principal); D69.6 Thrombocytopenia, unspecified; E11.22 Type 2 diabetes mellitus with diabetic chronic kidney disease; K70.30 Alcoholic cirrhosis of liver without ascites; J15.9 Unspecified bacterial pneumonia; E11.42 Type 2 diabetes mellitus with diabetic polyneuropathy; Z53.29 Procedure and treatment not carried out because of patient's decision for other reasons; Z20.822 Contact with and (suspected) exposure to COVID-19; I12.9 Hypertensive chronic kidney disease with stage 1 through stage 4 chronic kidney disease, or unspecified chronic kidney disease; N18.9 Chronic kidney disease, unspecified; M81.0 Age-related osteoporosis without current pathological fracture; J44.0 Chronic obstructive pulmonary disease with (acute) lower respiratory infection; Z90.49 Acquired absence of other specified parts of digestive tract; Z88.6 Allergy status to analgesic agent; Z88.8 Allergy status to other drugs, medicaments and biological substances
CPT/HCPCS: 36415; 71045; 80053; 81001; 82140; 82962; 83735; 83880; 84443; 84484; 85025; 87426; 93005; G0378; J1815

== ENCOUNTER → 2025-01-27 | Outpatient (CLI) | payer MEDICAID | END | disposition home or self-care (01) | LOC: Rad HDHVI 11:49 | PROVIDERS: ATTEND Internal Medicine Cardiovascular Disease | DX: M79.669 Pain in unspecified lower leg (principal); I10 Essential (primary) hypertension; E11.9 Type 2 diabetes mellitus without complications | CPT/HCPCS: 93925 ==

== ENCOUNTER 2025-02-08 14:53 | Emergency (ER) | payer MEDICAID ==
[~2025-02-08] VITALS: Ht 162.6 cm; Wt 70.0 kg
--- NOTE | 2025-02-08 15:48 | ED.PDOC ---
HPI Comments HPI: Poor Historian. 64-year-old female brought in by ambulance from home for evaluation of a mechanical fall from a standing position. Patient states she tripped and fall on the dog food bowl and fell forward without any head or neck injury or loss of consciousness. Patient suffered a left lower extremity [id number] anterior bach laceration. Patient has also had some very minimal slight skin abrasion on the right elbow forearm. Patient states she had a tetanus shot last month. Patient is supposed to be walking with a walker. She was on her way to go get her walker when she tripped and fell. Vitals: temperature of 98.7F, pulse rate 77, respiratory rate 20, blood pressure of 139/62, SpO2 of 96%RA Past Medical History: anxiety, depression, arthritis, liver cirrhosis, hepatitis-C, COPD, DM, GERD, HLD, HTN, PAD Past surgical history: appendectomy, cholecystectomy, , hysterectomy, tonsillectomy REVIEW OF SYSTEMS: CONSTITUTIONAL: Denies acute: fever, diaphoresis, chills, generalized weakness. HEAD: Denies acute: headache, photophobia Eyes: Denies acute: Double vision, vision loss, eye pain, eye discharge. EARS: Denies acute: tinnitus, hearing loss, ear discharge, ear pain, THROAT: Denies acute: sore throat, swelling, difficulty swallowing , pain with swallowing, change in voice. NECK: Denies acute: neck pain, neck swelling, stiff neck. HEART: Denies acute : chest pain, palpitations, LUNGS: Denies acute: SOB, wheezing, cough, hemoptysis ABDOMEN: Denies acute: abdominal pain, Nausea, Vomiting, diarrhea, melena , hematemesis, hematochezia SKIN: Denies acute: rash, redness, lesions, itchiness. EXTREMITIES: Denies acute: calf pain, numbness, tingling, weakness, denies pain in extremity. Denies acute: Low back pain. Neuro: Denies acute: focal neurological deficit, motor or sensory focal neurological deficit, tremors, seizure like activity, confusion, dizziness, change in mental status, loss of bowel or bladder function, cauda equina like symptoms. : Denies acute: dysuria, hematuria, flank pain, increase in urinary frequency. PSYCH: Denies acute: hallucination, suicidal ideation, homicidal ideation. FEMALE: Denies acute: abnormal vaginal bleeding, foul odor, unusual discharge. PHYSICAL EXAM: General: ----no---acute distress, awake and alert. Head: normocephalic, atraumatic. Neck: supple, trachea is midline, no swelling. Throat: Normal phonation. Eyes:, no erythema, no purulent discharge, no proptosis, no icterus. Heart: regular rate, regular rhythm, no significant murmur appreciated. Lungs: no apparent respiratory distress, Able to speak in full sentences. No wheezing, no rhonchi, no crackles. No stridors Clear to auscultation bilaterally. Abdomen: non tender to palpation, non distended, soft, no guarding, no rebound, + bowel sounds. Neuro: Awake, Alert, oriented to name, self, situation, follows commands GCS=15. Speech is normal. Skin: no petechia, no purpura, no cyanosis, non-pale, not jaundice. Lower extremities: --trace bilateral - Pitting edema no deformity, no focal swelling, no calf TTP. Evaluation of the area of complaint: Left lower extremity mid bach laceration through the fat layers as well. Bleeding is well controlled. Patient is olive rovascularly intact in the affected extremity. Makes eye contact. moves all four extremities. Face: no apparent facial droop. Pedal pulses are palpable. ED COURSE: Chief Complaint: Laceration Time Seen by MD: 15:22 Primary Care Provider: LORENZA Reviewed Notes: Nurses Notes, Allergies Allergies: Coded Allergies: Aspirin (Verified Allergy, Unknown, 02/11/20) Flu Virus Vaccine (Verified Allergy, Unknown, 02/11/20) Ibuprofen (Verified Allergy, Unknown, 01/28/19) Vitamin E (Verified Allergy, Unknown, 01/28/19) Morphine and Codeine (Verified Adverse Reaction, Unknown, HALLUCINATION, 01/28/19) SENSITIVITY Uncoded Allergies: PLASTIC TAPE (Allergy, Severe, 03/30/16) TAPE (Allergy, Unknown, 01/21/14) Home Meds Active Scripts Cephalexin Monohydrate (Cephalexin) 500 Mg Cap, 500 MG PO Q8HR for 5 Days, #15 TAB Prov:RODOLFO WINCHESTER DO 02/08/25 Ciprofloxacin-Hydrocortisone (Cipro Hc 0.2-1 %) 1 Rita Rita, 4 DROP OT BID, #7.5 ML Prov:SANDRA BARNETT 08/29/23 Amoxicillin & Pot Clavulanate (AUGMENTIN TABLET) 875 Mg Tb, 875 MG PO BID for 10 Days, #20 TAB Prov:SANDRA BARNETT 08/29/23 Acetaminophen (Tylenol 8 Hour Arthritis) 650 Mg Tab, 650 MG PO TID, #30 TAB Prov:SANDRA BARNETT 01/05/23 Hydrocodone-Acetaminophen (Hydrocodone Bitartrate/AC 10-325 mg) 1 Tab Tab, 1 TAB PO BID, #10 TAB Prov:SANDRA BARNETT 11/09/22 Oxycodone HCl (Oxycodone HCl ER) 10 Mg Tab, 10 MG PO BID, #15 TAB Prov:SHIRA GOMEZ PAC 10/26/22 Furosemide (Furosemide) 20 Mg Tab, 20 MG PO DAILY, #30 TAB Prov:DENIS ELIZALDE MD 01/17/22 Lactulose (Lactulose) 10 Gm/15 Ml Angela, 20 GM PO Q6HR, #2400 ML Prov:DENIS ELIZALDE MD 01/17/22 Potassium Chloride (Klor-Con 10) 10 Meq Tab, 20 MEQ PO BID, #60 TAB Prov:FRANCISCO FAY MD 05/16/20 Rifaximin (Xifaxan) 550 Mg Tab, 1 TAB PO BID, #60 TAB Prov:FRANCISCO FAY MD 05/16/20 Reported Medications Spironolactone (Aldactone) 25 Mg Tab, 1 TAB PO DAILY, #90 TAB 1 Refill 02/23/23 Rifampin (RIFAMPIN) 600 Mg Inj, 600 MG IV, INJ 02/23/23 Furosemide (Lasix) 40 Mg Tab, 40 MG PO, TAB 02/23/23 Albuterol Sulfate (VENTOLIN MDI) 90 Mcg Ih, 90 MCG IN, INH 01/17/22 Fluticasone-Salmeterol (Advair Diskus 100-50 Mcg/Dose) 1 Aer Aer, 1 AER IN, AER 01/17/22 Buprenorphine (BUTRANS) 20 Mcg/Hr Dis, 20 MCG TD, DIS 5/4/22 Buspirone HCl (Buspirone Hydrochloride) 5 Mg Tab, 5 MG PO, TAB 01/17/22 Omeprazole (Omeprazole) 20 Mg Cap, 20 MG PO, CAP 01/17/22 Carvedilol (Carvedilol) 6.25 Mg Tab, 6.25 MG PO BID, TAB 01/17/22 Amitriptyline Hcl (Amitriptyline Hcl) 100 Mg Tab, 100 MG PO HS, TAB 01/17/22 Meloxicam (Meloxicam) 15 Mg Tab, 15 MG PO, TAB 01/17/22 Cholecalciferol (VITAMIN D3) 2,000 Unit Tab, 2000 UNIT OR, TAB 01/17/22 Zinc Gluconate (Zinc Gluconate) 50 Mg Tab, 50 MG PO, TAB 01/17/22 Ondansetron HCl (Ondansetron) 4 Mg Tab, 4 MG PO, TAB 01/17/22 Ropinirole Hydrochloride (Ropinirole Hcl) 0.5 Mg Tab, 0.5 MG PO QHSP, TAB 11/25/19 Hydroxyzine Hcl (Hydroxyzine Hcl) 25 Mg Tab, 25 MG PO [id number] PRN for ANXIETY for 30 Days, MG 11/25/19 Spironolactone (Spironolactone) 25 Mg Tab, 4 TAB PO DAILY, #90 TAB 1 Refill 03/30/18 Lamotrigine (Lamotrigine) 100 Mg Tab, 1 TAB PO DAILY, #60 TAB 10/24/16 Mode of Arrival: EMS Complexity: Intermediate Laceration Length (cm): 16 Past Medical History PAST MEDICAL HISTORY: Anxiety, Arthritis, COPD, Depression, DM, GERD, High Lipids, HTN, Liver, PAD Surgical History: Appendectomy, Cholecystectomy, , Hysterectomy, Tonsillectomy MOTHER BABY RN History: No Pertinent MOTHER BABY RN History Family History Family History: Reviewed,noncontributory to illness, Family hx of heart shay, Family hx of HTN Social History Smoker: Non-Smoker, Quit Greater Than 1 Year Alcohol: Sober Drugs: Denies Drug Use Lives In: Home Was a procedure done? Was a procedure done?: Yes Sedation Sedation?: No Laceration Repair : Location left anterior bach Length 16cm Anesthetic: Lidocaine (2%) Laceration Repair Prep: Saline, Luis-Juancho, by Irrigation, Manual Scrub Laceration Repair Wound Comple: epidermis/dermis repair, subcut tissue repair Laceration Repair: Number of sutures (14x), Skin, SQ (into fat layer; not involving fascia) Informed consent obtained: Yes Risks, benefits, and alternati: Yes Notes 14 STITCHES 3.0 ETHILON Complex repair WOUND WAS IRRIGATED, GOOD APPROXIMATION, BLEEDING MINIMAL, LOCAL ANESTHESIAS WITH EPI 2% 7CC OF ANESTHESIA used Differential diagnosis Generic Laceration: Hematoma, Fracture, Retained Foriegn Body, Neurovascular Injury, Tendon Injury, Abrasion/Contusion, Laceration, Avulsion, Amputation X-Ray, Labs, Meds, VS Vital Signs Date Time Temp Pulse Resp B/P (MAP) Pulse Ox O2 Delivery O2 Flow Rate FiO2 02/08/25 19:40 98.9 72 16 102/79 (87) 95 98.9 02/08/25 19:40 72 16 95 Room Air* 0 21 02/08/25 16:40 70 16 96 Room Air* 0 21 02/08/25 16:40 98.4 72 16 119/75 (90) 97 98.4 02/08/25 14:53 98.7 77 20 139/62 (87) 96 98.7 Current Medications Medications (Trade) Dose Ordered Sig/Cher Route Start Time Stop Time Status Last Admin Acetaminophen/ Hydrocodone Bitart ([place] 5/325MG Tab) 1 tab ONCE ONCE PO 02/08/25 18:45 02/08/25 18:46 DC 02/08/25 18:47 Neomycin/ Polymyxin/ Bacitracin (Triple Antibiotic) 1 applic ONCE ONCE TOP 02/08/25 20:15 02/08/25 20:16 DC 02/08/25 20:19 [place] [id number] Ph: [phone] DIAGNOSTIC IMAGING Diagnostic Imaging Report : [id number] Signed PATIENT: TODD MARVIN ACCT: [id number] UNIT: [id number] : 1960 LOC: ER ROOM / BED: / AGE / SEX: 64 / F ADM STATUS: REG ER SERVICE 1722 ORDERING PHYSICIAN: RODOLFO WINCHESTER DO PROCEDURE(s): LTBFB - L TIB FIB XRAY REASON: fall, laceration ORDER NUMBER(s): [id number], ACCESSION NUMBER(s): [id number] CLINICAL INDICATION: fall, laceration TECHNIQUE: 2 radiographic views of the left tibia and fibula were obtained. Comparison: None FINDINGS/IMPRESSION: There is no evidence of acute fracture or dislocation. The visualized joint space is well maintained. The alignment is anatomical. There is questionable wound over the anterior upper and mid lower leg. If symptoms persist, consider repeat imaging in 7-10 days to follow-up on occult fractures. ATED BY: SKYLA COOLEY DO DICTATED DATE/TIME: 02/08/251799 SIGNED BY: SKYLA COOLEY DO SIGNED DATE/TIME: 02/08/251799 CC: Time of 1ST Reevaluation: 15:22 Reevaluation 1ST: Unchanged Patient Education/Counseling: Diagnosis, Treatment Family Education/Counseling: No Family Present Comments Patient presented with the above HPI.---fall and laceration---workup was initiated. patient was found with the above mentioned diagnosis. the following medications were ordered: please refer to order lists of meds and tests obtained by myself Dr. Winchester. Patient ED course and VS have been stabilized. Patient has been reassessed in the ED and remained in a stable condition. Pertinent incidental findings were discussed with the patient and/or family. Patient/family voices understanding and is agreeable with plan. Patient has been observed in the ED adequate length of time to insure improvement/stability. Escalation of care considered: Consideration of escalation to observation or admission Laceration was repaired successfully. Patient was given wound care instructions. Triple ointment antibiotics were applied and wound dressing applied. Patient denies any injury anywhere else on her body. Denies any acute pain anywhere else in her body. Patient was DISCHARGED home in a stable condition. All the reports of any imaging studies that were ordered by myself were reviewed by myself. Departure 1 Departure Time of Disposition: 19:40 Impression: Primary Impression: Laceration of lower extremity Disposition: HOME / SELF CARE / HOMELESS Condition: Stable Additional Instructions: Additional instructions: You MUST follow-up with your primary care/family doctor in 1 to 2 days. If you are unable to see your primary care/family doctor, please return to our emergency room for re-assessment and re-evaluation in 1 to 2 days. Return to the emergency room here in our facility or to the nearest ER [facility] if your symptoms change or worsen. CONSULTATIONS: you MUST Follow-up for consultation as soon as possible with: Adequate fluid hydration. Suture removal in 7-10 days. Keep the area clean dry and intact. Keep it covered. Do not submerge your extremity in the next 48 hours. Ambulates with a walker at all times. Fall precautions. e-Prescriptions Cephalexin Monohydrate (Cephalexin) 500 Mg Cap 500 MG PO Q8HR for 5 Days, #15 TAB Prov: RODOLFO WINCHESTER DO 02/08/25 Discharged With: Self Critical Care Note Critical Care Time?: No I personally scribed for RODOLFO WINCHESTER DO ([email or web address]) on 02/08/25 at 19:13. Electronically submitted by Michael Mcneill ([email or web address]). I personally scribed for RODOLFO WINCHESTER DO ([email or web address]) on 02/08/25 at 19:43. Electronically submitted by Michael Mcneill ([email or web address]). I personally scribed for RODOLFO WINCHESTER DO ([email or web address]) on 02/08/25 at 19:56. Electronically submitted by Michael Mcneill ([email or web address]). I personally scribed for RODOLFO WINCHESTER DO ([email or web address]) on 02/08/25 at 20:02. Electronically submitted by Michael Mcneill ([email or web address]). RODOLFO WINCHESTER DO February 08, 2025 15:48
[2025-02-08 16:40] VITALS: PULSE 70; RESP 16; O2SAT 96
--- NOTE | 2025-02-08 18:03 | DVH ---
CLINICAL INDICATION: fall, laceration TECHNIQUE: 2 radiographic views of the left tibia and fibula were obtained. Comparison: None FINDINGS/IMPRESSION: There is no evidence of acute fracture or dislocation. The visualized joint space is well maintained. The alignment is anatomical. There is questionable wound over the anterior upper and mid lower leg. If symptoms persist, consider repeat imaging in 7-10 days to follow-up on occult fractures.
[2025-02-08] MEDS: LIDOCAINE W/ EPINEPHRINE 2% INJ 20ML VIAL IJ ONE (18:08)
[2025-02-08] MEDS: HYDROcodone-ACET 5/325MG TAB PO ONE (18:47)
[2025-02-08 19:40] VITALS: BP 102/79; PULSE 72; RESP 16; TEMP 98.9; O2SAT 95
[2025-02-08] MEDS ORDERED: CEPH500C PO (19:43)
[2025-02-08] MEDS: NEOMYCIN-BACITRACIN-POLYM UNITDOSE PKG TOP OINT TOP ONE (20:19)
== END 2025-02-08 23:41 | disposition home or self-care (01) ==
LOC: EDBD 14:53 → EDUNIT# 14:53 → ER 14:55
DX: S81.812A Laceration without foreign body, left lower leg, initial encounter (principal); I10 Essential (primary) hypertension; E11.9 Type 2 diabetes mellitus without complications; K21.9 Gastro-esophageal reflux disease without esophagitis; J44.9 Chronic obstructive pulmonary disease, unspecified; Z90.49 Acquired absence of other specified parts of digestive tract; Z90.89 Acquired absence of other organs; Z90.710 Acquired absence of both cervix and uterus; Z98.890 Other specified postprocedural states; Z88.8 Allergy status to other drugs, medicaments and biological substances; Z79.899 Other long term (current) drug therapy; W01.0XXA Fall on same level from slipping, tripping and stumbling without subsequent striking against object, initial encounter; Y93.89 Activity, other specified; Y92.89 Other specified places as the place of occurrence of the external cause; Y99.8 Other external cause status
CPT/HCPCS: 12035; 73590; 99284; J2003; 12045